=== PATIENT | male | born 1965 | race Caucasian/White ===

== ENCOUNTER 2017-05-22 10:11 | Emergency (ER) | payer MEDICARE ==
[~2017-05-22] VITALS: Ht 190.5 cm; Wt 140.2 kg
[~2017-05-22 10:11] MED LIST: ALBU90OI6 INH; ALBU90OI61 INH; ASPI81CH PO; ASPI81EC PO; AUVI-Q0.3 MG/0.3 IV; AZIT250 PO; BUDE6HFA INH; CARV25 PO; Coreg25 MG PO; EPIN.3I IM; FLUSAL1005; FURO20 PO; GABA300 PO; HYDACE10B PO; HYDACE5325 PO; Hydrocodone-Ap1 EA23 PO; IBUP800 PO; LIRA0.6P SUBQ; LOSA50 PO; METF500 PO; Mucinex600 MG PO; NAPR500 PO; Naprosyn500 MG PO; Norco 10-325 T1 EACH PO; Norco 5-325 Ta1 EACH PO; Omeprazole20 M1 PO; Oxycodone-Apap1 EAC3 PO; PRED20 PO; Prednisone20 MG PO; SIMV40 PO; SPIRIVA RESPIMAT4 GM INH; Sulfamethoxazo1 EAC4 PO; TIOT18 IH; TIOT18 INH; TRADJENTA5 MG PO; TRAM50 PO; Veetids 500500 MG PO; Ventolin Soln3 ML INH; Zithromax250 MG PO
[2017-05-22 10:46] LABS: BASOPHILS ABSOLUTE AUTO 0.01 K/mm3 (0.00-0.23); BASOPHILS PERCENT AUTO 0 % (0-2); EOSINOPHILS ABSOLUTE AUTO 0.16 K/mm3 (0.00-0.68); EOSINOPHILS PERCENT AUTO 2 % (0-6); IMMATURE GRAN ABSOLUTE AUTO 0.03 K/mm3 (0.00-0.10); IMMATURE GRAN PERCENT AUTO 0 % (0-1); LYMPHOCYTES ABSOLUTE AUTO 1.99 K/mm3 (0.84-5.20); LYMPHOCYTES PERCENT AUTO 26 % (21-46); MONOCYTES ABSOLUTE AUTO 0.72 K/mm3 (0.16-1.47); MONOCYTES PERCENT AUTO 9 % (4-13); Mean Corpuscular HGB 31.6 pg (26.0-34.0); Mean Corpuscular HGB Conc 34.8 g/dL (31.5-36.5); Mean Corpuscular Volume 91 fL (80-100); Mean Platelet Volume 11.6 fL (9.1-12.4); NEUTROPHILS ABSOLUTE AUTO 4.82 K/mm3 (1.96-9.15); NEUTROPHILS PERCENT AUTO 62 % (41-73); Platelet Count 189 K/mm3 (150-400); RDW Coefficient Variation 12.8 % (11.7-14.2); RDW Standard Deviation 42.4 fL (35.1-46.3); Red Blood Cell Count 5.06 M/mm3 (4.30-5.90); White Blood Cell Count 7.73 K/mm3 (4.00-11.30)
[2017-05-22 10:56] LABS: Troponin I <0.015 ng/mL (0.000-0.040)
[2017-05-22 11:00] LABS: Alanine Aminotransfer (ALT/SGP 27 U/L (12-78); Albumin, Blood 3.8 g/dL (3.4-5.0); Albumin/Globulin Ratio 1.1 (0.8-1.8); Alk Phos 72 U/L (50-136); Anion Gap 8 mmol/L (6-16); Aspartate Aminotrans (AST/SGOT 23 U/L (12-37); Bilirubin, Total 0.6 mg/dL (0.1-1.0); Blood Urea Nitrogen 15 mg/dL (8-24); Bun/Creatinine Ratio 21.3 (12.0-20.0); CO2, Blood 26 mmol/L (21-32); Calcium, Blood 8.8 mg/dL (8.5-10.1); Chloride, Blood 103 mmol/L (98-108); Globulin, Blood 3.5 g/dL (2.2-4.0); Glomerular Filtration Rate >60 (60-); Glucose, Blood 104 mg/dL (70-99); Potassium, Blood 3.4 mmol/L (3.5-5.5); Sodium, Blood 137 mmol/L (136-145); Total Protein, Blood 7.3 g/dL (6.4-8.2)
[2017-05-22] MEDS ORDERED: TAMS.4ER PO (11:08)
[2017-05-22] MEDS ORDERED: ALBU90OI INH (11:10)
[2017-05-22 11:34] LABS: Magnesium, Blood 1.7 mg/dL (1.6-2.4)
[2017-06-16] MEDS ORDERED: TIOT18 INH (14:51)
[2017-06-16] MEDS ORDERED: ALBUTEROL SULFATE NEB (14:55)
[2017-06-16] MEDS ORDERED: Questran4 GM PO (14:56)
[2017-06-16] MEDS ORDERED: Klor-Con M1010 MEQ PO (14:57)
[2017-11-07] MEDS ORDERED: Bactrim Ds Tab1 EACH PO (13:48)
== END 2017-05-22 16:15 | disposition home or self-care (01) ==
LOC: ER 10:11
PROVIDERS: Emergency Medicine
DX: R07.89 Other chest pain (principal); R42 Dizziness and giddiness; J44.9 Chronic obstructive pulmonary disease, unspecified; I10 Essential (primary) hypertension; E78.00 Pure hypercholesterolemia, unspecified; E11.9 Type 2 diabetes mellitus without complications; Z91.018 Allergy to other foods; Z88.1 Allergy status to other antibiotic agents; Z88.8 Allergy status to other drugs, medicaments and biological substances; Z79.899 Other long term (current) drug therapy; Z79.82 Long term (current) use of aspirin; Z79.84 Long term (current) use of oral hypoglycemic drugs; Z90.49 Acquired absence of other specified parts of digestive tract; Z87.891 Personal history of nicotine dependence
CPT/HCPCS: 36415; 71046; 80053; 83690; 83735; 83880; 84484; 85025; 93005; 93010; 99283

== ENCOUNTER 2017-06-17 11:02 | Observation (INO) | payer MEDICARE ==
[~2017-06-17] VITALS: Ht 190.5 cm; Wt 129.0 kg
[~2017-06-17 11:02] MED LIST changes: +ALBU90OI INH; +ALBUTEROL SULFATE NEB; +Klor-Con M1010 MEQ PO; +Questran4 GM PO; +TAMS.4ER PO
[2017-06-17 11:53] LABS: BASOPHILS ABSOLUTE AUTO 0.03 K/mm3 (0.00-0.23); BASOPHILS PERCENT AUTO 0 % (0-2); EOSINOPHILS ABSOLUTE AUTO 0.11 K/mm3 (0.00-0.68); EOSINOPHILS PERCENT AUTO 1 % (0-6); Hematocrit 47.3 % (37.0-53.0); Hemoglobin 15.9 g/dL (13.5-17.5); IMMATURE GRAN ABSOLUTE AUTO 0.03 K/mm3 (0.00-0.10); IMMATURE GRAN PERCENT AUTO 0 % (0-1); LYMPHOCYTES ABSOLUTE AUTO 1.84 K/mm3 (0.84-5.20); LYMPHOCYTES PERCENT AUTO 18 % (21-46); MONOCYTES ABSOLUTE AUTO 0.66 K/mm3 (0.16-1.47); MONOCYTES PERCENT AUTO 7 % (4-13); Mean Corpuscular HGB 30.3 pg (26.0-34.0); Mean Corpuscular HGB Conc 33.6 g/dL (31.5-36.5); Mean Corpuscular Volume 90 fL (80-100); Mean Platelet Volume 11.6 fL (9.1-12.4); NEUTROPHILS ABSOLUTE AUTO 7.34 K/mm3 (1.96-9.15); NEUTROPHILS PERCENT AUTO 73 % (41-73); Platelet Count 217 K/mm3 (150-400); RDW Coefficient Variation 12.5 % (11.7-14.2); RDW Standard Deviation 41.6 fL (35.1-46.3); Red Blood Cell Count 5.25 M/mm3 (4.30-5.90); White Blood Cell Count 10.01 K/mm3 (4.00-11.30)
[2017-06-17 12:08] LABS: Alanine Aminotransfer (ALT/SGP 31 U/L (12-78); Albumin, Blood 3.9 g/dL (3.4-5.0); Alk Phos 77 U/L (50-136); Anion Gap 10 mmol/L (6-16); Aspartate Aminotrans (AST/SGOT 20 U/L (12-37); Bilirubin, Total 0.7 mg/dL (0.1-1.0); Blood Urea Nitrogen 18 mg/dL (8-24); Bun/Creatinine Ratio 21.1 (12.0-20.0); CO2, Blood 26 mmol/L (21-32); Chloride, Blood 101 mmol/L (98-108); Creatinine, Blood 0.85 mg/dL (0.60-1.20); Globulin, Blood 3.9 g/dL (2.2-4.0); Glomerular Filtration Rate >60 (60-); Glucose, Blood 220 mg/dL (70-99); Potassium, Blood 3.2 mmol/L (3.5-5.5); Sodium, Blood 137 mmol/L (136-145); Total Protein, Blood 7.8 g/dL (6.4-8.2); Troponin I <0.015 ng/mL (0.000-0.040)
[2017-06-17 20:18] LABS: CPK Creatine Kinase 136 U/L (39-308); Creatine Kinase MB 1.3 ng/mL (0.0-3.6); Troponin I <0.015 ng/mL (0.000-0.040)
[2017-06-18 04:34] LABS: BASOPHILS ABSOLUTE AUTO 0.02 K/mm3 (0.00-0.23); BASOPHILS PERCENT AUTO 0 % (0-2); EOSINOPHILS ABSOLUTE AUTO 0.14 K/mm3 (0.00-0.68); EOSINOPHILS PERCENT AUTO 2 % (0-6); Hematocrit 41.5 % (37.0-53.0); Hemoglobin 14.2 g/dL (13.5-17.5); IMMATURE GRAN ABSOLUTE AUTO 0.03 K/mm3 (0.00-0.10); IMMATURE GRAN PERCENT AUTO 0 % (0-1); LYMPHOCYTES ABSOLUTE AUTO 1.64 K/mm3 (0.84-5.20); LYMPHOCYTES PERCENT AUTO 18 % (21-46); MONOCYTES ABSOLUTE AUTO 0.89 K/mm3 (0.16-1.47); MONOCYTES PERCENT AUTO 10 % (4-13); Mean Corpuscular HGB 31.6 pg (26.0-34.0); Mean Corpuscular HGB Conc 34.2 g/dL (31.5-36.5); Mean Corpuscular Volume 92 fL (80-100); Mean Platelet Volume 11.3 fL (9.1-12.4); NEUTROPHILS ABSOLUTE AUTO 6.51 K/mm3 (1.96-9.15); NEUTROPHILS PERCENT AUTO 71 % (41-73); Platelet Count 182 K/mm3 (150-400); RDW Coefficient Variation 12.7 % (11.7-14.2); RDW Standard Deviation 43.1 fL (35.1-46.3); White Blood Cell Count 9.23 K/mm3 (4.00-11.30)
[2017-06-18 04:56] LABS: Alanine Aminotransfer (ALT/SGP 25 U/L (12-78); Albumin, Blood 3.3 g/dL (3.4-5.0); Albumin/Globulin Ratio 0.9 (0.8-1.8); Alk Phos 67 U/L (50-136); Anion Gap 6 mmol/L (6-16); Aspartate Aminotrans (AST/SGOT 14 U/L (12-37); Bilirubin, Total 0.6 mg/dL (0.1-1.0); Blood Urea Nitrogen 19 mg/dL (8-24); Bun/Creatinine Ratio 24.1 (12.0-20.0); CO2, Blood 28 mmol/L (21-32); CPK Creatine Kinase 111 U/L (39-308); Calcium, Blood 8.5 mg/dL (8.5-10.1); Chloride, Blood 104 mmol/L (98-108); Creatine Kinase MB 1.1 ng/mL (0.0-3.6); Creatinine, Blood 0.79 mg/dL (0.60-1.20); Globulin, Blood 3.5 g/dL (2.2-4.0); Glomerular Filtration Rate >60 (60-); Glucose, Blood 145 mg/dL (70-99); Potassium, Blood 3.8 mmol/L (3.5-5.5); Sodium, Blood 138 mmol/L (136-145); Total Protein, Blood 6.8 g/dL (6.4-8.2); Troponin I <0.015 ng/mL (0.000-0.040)
[2017-06-18 12:39] LABS: CPK Creatine Kinase 107 U/L (39-308); Creatine Kinase MB 1.1 ng/mL (0.0-3.6); Troponin I <0.015 ng/mL (0.000-0.040)
[2017-11-07] MEDS ORDERED: Bactrim Ds Tab1 EACH PO (13:48)
== END 2017-06-19 14:30 | disposition home or self-care (01) ==
LOC: ER 11:02 → MEDS 11:03 → ICUW 11:03 → MEDS 11:03 → ICUW 06-19 07:36
PROVIDERS: Emergency Medicine; Internal Medicine
DX: R07.89 Other chest pain (principal); E11.9 Type 2 diabetes mellitus without complications; I10 Essential (primary) hypertension; R06.02 Shortness of breath; E78.5 Hyperlipidemia, unspecified; G89.29 Other chronic pain; M54.6 Pain in thoracic spine; G47.33 Obstructive sleep apnea (adult) (pediatric); J44.9 Chronic obstructive pulmonary disease, unspecified; E66.01 Morbid (severe) obesity due to excess calories; I42.9 Cardiomyopathy, unspecified; M19.90 Unspecified osteoarthritis, unspecified site; N40.0 Benign prostatic hyperplasia without lower urinary tract symptoms; F17.210 Nicotine dependence, cigarettes, uncomplicated; R94.39 Abnormal result of other cardiovascular function study; Z89.512 Acquired absence of left leg below knee; Z79.899 Other long term (current) drug therapy; Z90.49 Acquired absence of other specified parts of digestive tract; Z98.49 Cataract extraction status, unspecified eye; Z79.82 Long term (current) use of aspirin; Z79.84 Long term (current) use of oral hypoglycemic drugs; Z88.1 Allergy status to other antibiotic agents; Z88.8 Allergy status to other drugs, medicaments and biological substances
CPT/HCPCS: 36415; 71046; 80053; 82550; 82553; 82947; 83880; 84484; 85025; 93005; 93010; 93458; 94640; 94660; 94760; 94762; 96361; 96372; 96374; 96375; 96376; 99152; 99153; 99285; A9270; C1769; C1894; G0378; J1644; J1650; J2250; J2270; J2405; J3010; J7030; Q9967

== ENCOUNTER 2017-08-07 19:24 | Inpatient (IN) | payer MEDICARE ==
[~2017-08-07] VITALS: Ht 190.5 cm; Wt 140.0 kg
[2017-08-07 19:43] LABS: BASOPHILS ABSOLUTE AUTO 0.02 K/mm3 (0.00-0.23); BASOPHILS PERCENT AUTO 0 % (0-2); EOSINOPHILS ABSOLUTE AUTO 0.13 K/mm3 (0.00-0.68); EOSINOPHILS PERCENT AUTO 1 % (0-6); Hematocrit 46.7 % (37.0-53.0); Hemoglobin 15.5 g/dL (13.5-17.5); IMMATURE GRAN ABSOLUTE AUTO 0.04 K/mm3 (0.00-0.10); IMMATURE GRAN PERCENT AUTO 0 % (0-1); LYMPHOCYTES ABSOLUTE AUTO 1.29 K/mm3 (0.84-5.20); LYMPHOCYTES PERCENT AUTO 14 % (21-46); MONOCYTES ABSOLUTE AUTO 0.72 K/mm3 (0.16-1.47); MONOCYTES PERCENT AUTO 8 % (4-13); Mean Corpuscular HGB 30.9 pg (26.0-34.0); Mean Corpuscular HGB Conc 33.2 g/dL (31.5-36.5); Mean Corpuscular Volume 93 fL (80-100); Mean Platelet Volume 11.1 fL (9.1-12.4); NEUTROPHILS ABSOLUTE AUTO 6.92 K/mm3 (1.96-9.15); NEUTROPHILS PERCENT AUTO 76 % (41-73); Platelet Count 210 K/mm3 (150-400); RDW Coefficient Variation 13.3 % (11.7-14.2); RDW Standard Deviation 45.3 fL (35.1-46.3); Red Blood Cell Count 5.02 M/mm3 (4.30-5.90); White Blood Cell Count 9.12 K/mm3 (4.00-11.30)
[2017-08-07 19:59] LABS: Alanine Aminotransfer (ALT/SGP 28 U/L (12-78); Albumin, Blood 3.8 g/dL (3.4-5.0); Albumin/Globulin Ratio 1.1 (0.8-1.8); Alk Phos 64 U/L (50-136); Anion Gap 6 mmol/L (6-16); Aspartate Aminotrans (AST/SGOT 21 U/L (12-37); Bilirubin, Total 0.5 mg/dL (0.1-1.0); Blood Urea Nitrogen 22 mg/dL (8-24); Bun/Creatinine Ratio 29.7 (12.0-20.0); CO2, Blood 28 mmol/L (21-32); Calcium, Blood 8.9 mg/dL (8.5-10.1); Chloride, Blood 108 mmol/L (98-108); Creatinine, Blood 0.74 mg/dL (0.60-1.20); Globulin, Blood 3.4 g/dL (2.2-4.0); Glomerular Filtration Rate >60 (60-); Glucose, Blood 112 mg/dL (70-99); Potassium, Blood 3.8 mmol/L (3.5-5.5); Sodium, Blood 142 mmol/L (136-145); Total Protein, Blood 7.2 g/dL (6.4-8.2); Troponin I <0.015 ng/mL (0.000-0.040)
[2017-08-07 21:28] LABS: CPK Creatine Kinase 153 U/L (39-308)
[2017-08-08 03:47] LABS: Source, Urine Clean Catch
[2017-08-08 03:51] LABS: Bilirubin, Urine Neg (Neg); Blood, Urine Neg (Neg); Glucose Qualitative, Urine 3+ (Neg); Ketones, Urine 1+ (Neg); Leukocyte Esterase, Urine Neg (Neg); Nitrite, Urine Neg (Neg); Protein, Urine 1+ (Neg); Specific Gravity, Urine 1.025 (1.003-1.022); Urobilinogen, Urine NORM (Normal)
[2017-08-08 03:53] LABS: Appearance, Urine Clear (Clear); Color, Urine Yellow (P-Yellow)
[2017-08-08 04:07] LABS: BASOPHILS ABSOLUTE AUTO 0.01 K/mm3 (0.00-0.23); BASOPHILS PERCENT AUTO 0 % (0-2); EOSINOPHILS ABSOLUTE AUTO 0.01 K/mm3 (0.00-0.68); EOSINOPHILS PERCENT AUTO 0 % (0-6); Hematocrit 45.4 % (37.0-53.0); Hemoglobin 14.7 g/dL (13.5-17.5); IMMATURE GRAN ABSOLUTE AUTO 0.02 K/mm3 (0.00-0.10); IMMATURE GRAN PERCENT AUTO 0 % (0-1); LYMPHOCYTES ABSOLUTE AUTO 0.47 K/mm3 (0.84-5.20); LYMPHOCYTES PERCENT AUTO 5 % (21-46); MONOCYTES ABSOLUTE AUTO 0.06 K/mm3 (0.16-1.47); MONOCYTES PERCENT AUTO 1 % (4-13); Mean Corpuscular HGB 30.3 pg (26.0-34.0); Mean Corpuscular HGB Conc 32.4 g/dL (31.5-36.5); Mean Corpuscular Volume 94 fL (80-100); Mean Platelet Volume 11.6 fL (9.1-12.4); NEUTROPHILS ABSOLUTE AUTO 8.16 K/mm3 (1.96-9.15); NEUTROPHILS PERCENT AUTO 94 % (41-73); Platelet Count 204 K/mm3 (150-400); RDW Coefficient Variation 13.2 % (11.7-14.2); RDW Standard Deviation 46.1 fL (35.1-46.3); Red Blood Cell Count 4.85 M/mm3 (4.30-5.90); White Blood Cell Count 8.73 K/mm3 (4.00-11.30)
[2017-08-08 04:31] LABS: Alanine Aminotransfer (ALT/SGP 27 U/L (12-78); Albumin, Blood 3.5 g/dL (3.4-5.0); Alk Phos 65 U/L (50-136); Anion Gap 10 mmol/L (6-16); Aspartate Aminotrans (AST/SGOT 12 U/L (12-37); Bilirubin, Total 0.4 mg/dL (0.1-1.0); Blood Urea Nitrogen 24 mg/dL (8-24); Bun/Creatinine Ratio 36.6 (12.0-20.0); CO2, Blood 25 mmol/L (21-32); CPK Creatine Kinase 111 U/L (39-308); Calcium, Blood 8.6 mg/dL (8.5-10.1); Chloride, Blood 106 mmol/L (98-108); Creatinine, Blood 0.66 mg/dL (0.60-1.20); Globulin, Blood 3.6 g/dL (2.2-4.0); Glomerular Filtration Rate >60 (60-); Glucose, Blood 193 mg/dL (70-99); Potassium, Blood 4.3 mmol/L (3.5-5.5); Sodium, Blood 141 mmol/L (136-145); Total Protein, Blood 7.1 g/dL (6.4-8.2); Troponin I <0.015 ng/mL (0.000-0.040)
[2017-08-08 12:09] LABS: CPK Creatine Kinase 94 U/L (39-308); Troponin I <0.015 ng/mL (0.000-0.040)
[2017-08-09] MEDS ORDERED: PRED10 PO (11:43)
[2017-08-09] MEDS ORDERED: ONDA4ODT MM (11:45)
[2017-08-09] MEDS ORDERED: LEVO750 PO (11:45)
== END 2017-08-09 14:45 | disposition home or self-care (01) | DRG 177 ==
LOC: ER 19:24 → PCU 20:53
PROVIDERS: Emergency Medicine; Internal Medicine
DX: J69.0 Pneumonitis due to inhalation of food and vomit (principal); J96.01 Acute respiratory failure with hypoxia; E66.01 Morbid (severe) obesity due to excess calories; E11.65 Type 2 diabetes mellitus with hyperglycemia; I42.8 Other cardiomyopathies; J44.1 Chronic obstructive pulmonary disease with (acute) exacerbation; J98.01 Acute bronchospasm; I25.10 Atherosclerotic heart disease of native coronary artery without angina pectoris; R11.2 Nausea with vomiting, unspecified; I10 Essential (primary) hypertension; E78.5 Hyperlipidemia, unspecified; M19.90 Unspecified osteoarthritis, unspecified site; G47.33 Obstructive sleep apnea (adult) (pediatric); K52.9 Noninfective gastroenteritis and colitis, unspecified; T38.0X5A Adverse effect of glucocorticoids and synthetic analogues, initial encounter; Z89.512 Acquired absence of left leg below knee; Z87.891 Personal history of nicotine dependence; Z68.38 Body mass index [BMI] 38.0-38.9, adult; Z79.84 Long term (current) use of oral hypoglycemic drugs; Z79.1 Long term (current) use of non-steroidal anti-inflammatories (NSAID); Z79.82 Long term (current) use of aspirin; Z79.51 Long term (current) use of inhaled steroids; Z79.899 Other long term (current) drug therapy; Z88.6 Allergy status to analgesic agent; Z88.1 Allergy status to other antibiotic agents; Z88.8 Allergy status to other drugs, medicaments and biological substances
CPT/HCPCS: 36415; 71045; 80053; 82550; 82947; 83036; 83880; 84484; 85025; 93005; 93010; 94640; 94644; 94660; 94762; 96361; 96365; 96366; 96375; 99285; J1650; J1956; J2930; J3475; J7030

== ENCOUNTER 2017-11-09 10:30 | Emergency (ER) | payer MEDICARE ==
[~2017-11-09] VITALS: Ht 190.5 cm; Wt 139.7 kg
[~2017-11-09 10:30] MED LIST changes: +Bactrim Ds Tab1 EACH PO; +LEVO750 PO; +ONDA4ODT MM; +PRED10 PO
== END 2017-11-09 10:58 | disposition home or self-care (01) ==
LOC: ER 10:30
DX: Z48.817 Encounter for surgical aftercare following surgery on the skin and subcutaneous tissue (principal); Z88.8 Allergy status to other drugs, medicaments and biological substances; Z88.1 Allergy status to other antibiotic agents; Z79.899 Other long term (current) drug therapy; Z79.82 Long term (current) use of aspirin; J44.9 Chronic obstructive pulmonary disease, unspecified; I10 Essential (primary) hypertension; E11.9 Type 2 diabetes mellitus without complications; E78.00 Pure hypercholesterolemia, unspecified; Z87.891 Personal history of nicotine dependence
CPT/HCPCS: 99282

== ENCOUNTER 2018-05-05 21:48 | Inpatient (IN) | payer MEDICARE ==
[~2018-05-05] VITALS: Ht 190.5 cm; Wt 123.9 kg
[~2018-05-05 21:48] MED LIST changes: +Glucophage1000 MG PO; -ONDA4ODT MM; +ONDA4ODT PO
[2018-05-05 22:45] LABS: BASOPHILS ABSOLUTE AUTO 0.01 K/mm3 (0.00-0.23); BASOPHILS PERCENT AUTO 0 % (0-2); EOSINOPHILS ABSOLUTE AUTO 0.03 K/mm3 (0.00-0.68); EOSINOPHILS PERCENT AUTO 1 % (0-6); Hematocrit 40.6 % (37.0-53.0); Hemoglobin 13.3 g/dL (13.5-17.5); IMMATURE GRAN ABSOLUTE AUTO 0.02 K/mm3 (0.00-0.10); IMMATURE GRAN PERCENT AUTO 0 % (0-1); LYMPHOCYTES ABSOLUTE AUTO 0.68 K/mm3 (0.84-5.20); LYMPHOCYTES PERCENT AUTO 10 % (21-46); MONOCYTES ABSOLUTE AUTO 0.51 K/mm3 (0.16-1.47); MONOCYTES PERCENT AUTO 8 % (4-13); Mean Corpuscular HGB 31.4 pg (26.0-34.0); Mean Corpuscular HGB Conc 32.8 g/dL (31.5-36.5); Mean Corpuscular Volume 96 fL (80-100); NEUTROPHILS PERCENT AUTO 81 % (41-73); Platelet Count 150 K/mm3 (150-400); RDW Coefficient Variation 13.5 % (11.7-14.2); RDW Standard Deviation 48.3 fL (35.1-46.3); Red Blood Cell Count 4.24 M/mm3 (4.30-5.90); White Blood Cell Count 6.65 K/mm3 (4.00-11.30)
[2018-05-05 23:02] LABS: Alanine Aminotransfer (ALT/SGP 24 U/L (12-78); Albumin/Globulin Ratio 0.9 (0.8-1.8); Alk Phos 59 U/L (50-136); Anion Gap 8 mmol/L (6-16); Aspartate Aminotrans (AST/SGOT 20 U/L (12-37); Bilirubin, Total 0.2 mg/dL (0.1-1.0); Blood Urea Nitrogen 14 mg/dL (8-24); Bun/Creatinine Ratio 19.1 (12.0-20.0); CO2, Blood 26 mmol/L (21-32); Chloride, Blood 107 mmol/L (98-108); Creatinine, Blood 0.73 mg/dL (0.60-1.20); Globulin, Blood 3.4 g/dL (2.2-4.0); Glomerular Filtration Rate >60 (60-); Glucose, Blood 111 mg/dL (70-99); Potassium, Blood 3.8 mmol/L (3.5-5.5); Sodium, Blood 141 mmol/L (136-145); Total Protein, Blood 6.4 g/dL (6.4-8.2)
[2018-05-06 01:13] LABS: Influenza A Positive (NEGATIVE); Influenza B Negative (NEGATIVE)
[2018-05-06 09:51] LABS: Adenovirus Not Detected (NOT DETECT); Bordetella pertussis Not Detected (NOT DETECT); Chlamydophila pneumoniae Not Detected (NOT DETECT); Coronavirus 229E Not Detected (NOT DETECT); Coronavirus HKU1 Not Detected (NOT DETECT); Coronavirus NL63 Not Detected (NOT DETECT); Coronavirus OC43 Not Detected (NOT DETECT); Human Metapneumovirus Not Detected (NOT DETECT); Human Rhinovirus/Enterovirus Not Detected (NOT DETECT); Influenza A/H3 Not Detected (NOT DETECT); Influenza B Not Detected (NOT DETECT); Mycoplasma pneumoniae Not Detected (NOT DETECT); Parainfluenza Virus 1 Not Detected (NOT DETECT); Parainfluenza Virus 2 Not Detected (NOT DETECT); Parainfluenza Virus 3 Not Detected (NOT DETECT); Parainfluenza Virus 4 Not Detected (NOT DETECT); Respiratory Syncytial Virus Not Detected (NOT DETECT)
[2018-05-06 11:20] LABS: Influenza A Detected (NOT DETECT)
[2018-05-06 11:25] LABS: Influenza A/2009-H1 Detected (NOT DETECT); Influenza A/H1 Not Detected (NOT DETECT)
[2018-05-06] MEDS ORDERED: BUDE10.22 INH (12:13)
--- NOTE | 2018-05-06 13:10 | NUR ---
Call to Dr. Brink regarding pt's improving blood pressure, actually now starting to be high, and the pt still being on continuous IVF at 125cc/ hour. The pt has had a very good oral intake today. He has a history of HTN with usual home medications being Coreg and Lasix, but is currently not on those medications since admission yesteray. Dr. Brink to make changes to medication orders and IVF will be discontinued after the current bag is complete.
--- NOTE | 2018-05-06 13:45 | NUR ---
The pt was ambulatory in the hallway. Respiratory status was reassessed after the walk, and his wheezing auscultated this morning throughout is now gone, with only fine inspiratory crackles remaining in the bases, more on the right than the left. SPO2 93% on room air now, and the pt states that he feels that his breathing is much better. He is able to walk to the bathroom, around the room without any difficulty, he states.
[2018-05-06 13:46] LABS: Anion Gap 9 mmol/L (6-16); Blood Urea Nitrogen 12 mg/dL (8-24); Bun/Creatinine Ratio 18.6 (12.0-20.0); CO2, Blood 23 mmol/L (21-32); Calcium, Blood 8.7 mg/dL (8.5-10.1); Chloride, Blood 108 mmol/L (98-108); Creatinine, Blood 0.65 mg/dL (0.60-1.20); Glomerular Filtration Rate >60 (60-); Glucose, Blood 203 mg/dL (70-99); Sodium, Blood 140 mmol/L (136-145)
[2018-05-06 14:11] LABS: BASOPHILS ABSOLUTE AUTO 0.01 K/mm3 (0.00-0.23); BASOPHILS PERCENT AUTO 0 % (0-2); EOSINOPHILS PERCENT AUTO 0 % (0-6); Hemoglobin 14.1 g/dL (13.5-17.5); IMMATURE GRAN PERCENT AUTO 1 % (0-1); LYMPHOCYTES ABSOLUTE AUTO 0.65 K/mm3 (0.84-5.20); LYMPHOCYTES PERCENT AUTO 5 % (21-46); MONOCYTES ABSOLUTE AUTO 0.33 K/mm3 (0.16-1.47); MONOCYTES PERCENT AUTO 3 % (4-13); Mean Corpuscular HGB 30.9 pg (26.0-34.0); Mean Corpuscular HGB Conc 32.8 g/dL (31.5-36.5); Mean Corpuscular Volume 94 fL (80-100); Mean Platelet Volume 11.4 fL (9.1-12.4); NEUTROPHILS ABSOLUTE AUTO 11.33 K/mm3 (1.96-9.15); NEUTROPHILS PERCENT AUTO 91 % (41-73); Platelet Count 155 K/mm3 (150-400); RDW Coefficient Variation 13.3 % (11.7-14.2); RDW Standard Deviation 45.9 fL (35.1-46.3); Red Blood Cell Count 4.56 M/mm3 (4.30-5.90); White Blood Cell Count 12.42 K/mm3 (4.00-11.30)
--- NOTE | 2018-05-06 18:37 | NUR ---
The pt reports improvement in his breathing and less wheezing since this morning. He has been ambulatory in the hallways a few times, without difficulty, vital signs stable, and weaned from oxygen this afternoon. Lung sounds are without wheezing this afternoon, but still ausculated fine inspiratory crackles in the bases and the pt has a frequent moist cough. Appetite good; his family brought him cake this evening to celebrate his birthday today.
--- NOTE | 2018-05-06 21:38 | NUR ---
ASSUMED CARE OF PATIENT AT APPROXIMATELY 1905 FROM JAMES Schulte RN. PATIENT ALERT AND ORIENTED X4; REPORTED INDEPENDENT IN ROOM AND HALLS ALL DAY TODAY. PATIENT STEADY ON FEET. PATIENT DENIES PAIN, NUMBESS, DIZZINESS AND NAUSEA. PATIENT REPORTS TINGLING IN LEFT LEG OCCASIONALLY. LEFT BKA; USES PROSTHETIC LEG. PATIENT REPORTS BED UNCOMFORTABLE; REPORTS SLEEPING IN RECLINER AT HOME; RECLINER SET UP BY BED. PATIENT REPORTS HE FEELS ALOT BETTER COMPARED TO LAST NIGHT. PIV S/L. REPORTED THAT PATIENT IS MEDICAL NO TELE STATUS. PATIENT CURRENTLY EATING BIRTHDAY CAKE IN THE RECLINER; CALL LIGHT IN REACH; WILL CONTINUE TO MONITOR AND ASSESS UNTIL END OF SHIFT.
--- NOTE | 2018-05-07 05:59 | NUR ---
PATIENT SLEPT WELL LAST NIGHT IN RECLINER; SLEPT ABOUT NINE HOURS. PATIENT HAD A SHOWER THIS MORNING; INDEPENDENT IN ROOM. PATIENT IS PCU NO TELE STATUS; REPORTS HE IS READY TO GO HOME. OXYGEN SATURATION ABOVE 90% ON ROOM AIR; DENIES COMPLAINTS. WILL CONTINUE TO MONITOR AND ASSESS UNTIL END OF SHIFT.
[2018-05-07] MEDS ORDERED: PRED10 PO (10:56)
[2018-05-07] MEDS ORDERED: OSEL75CA PO (10:56)
--- NOTE | 2018-05-07 11:43 | NUR ---
The pt stated that he was able to walk outside for discharge. The DIRECTOR OF AUTOMATION accompanied him to his private vehicle. 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 The pt has been ambulatory in the room and in the hallway since yesterday,and has received no medications which would impair his driving ability. He states that he drove himself to the hospital initially for admission.
== END 2018-05-07 11:57 | disposition home or self-care (01) | DRG 871 ==
LOC: ER 21:48 → PCU 05-06 01:10
PROVIDERS: Emergency Medicine; ADMIT Family Medicine
DX: A41.89 Other specified sepsis (principal); J96.01 Acute respiratory failure with hypoxia; R65.20 Severe sepsis without septic shock; E11.9 Type 2 diabetes mellitus without complications; E66.01 Morbid (severe) obesity due to excess calories; I95.9 Hypotension, unspecified; I10 Essential (primary) hypertension; E78.5 Hyperlipidemia, unspecified; G47.30 Sleep apnea, unspecified; K21.9 Gastro-esophageal reflux disease without esophagitis; E66.9 Obesity, unspecified; Z68.36 Body mass index [BMI] 36.0-36.9, adult; Z88.8 Allergy status to other drugs, medicaments and biological substances; Z91.018 Allergy to other foods; Z89.512 Acquired absence of left leg below knee; Z79.84 Long term (current) use of oral hypoglycemic drugs; Z79.82 Long term (current) use of aspirin; Z79.899 Other long term (current) drug therapy; Z87.891 Personal history of nicotine dependence
CPT/HCPCS: 36415; 71046; 80048; 80053; 82947; 83605; 84145; 85025; 87040; 87070; 87205; 87486; 87581; 87633; 87798; 87804; 94640; 94760; 96365; 96367; 99285-25; J1100; J1650; J1815; J1956; J2543; J2930; J7030; J7120

== ENCOUNTER 2018-05-16 10:04 | Inpatient (IN) | payer MEDICARE ==
[~2018-05-16] VITALS: Ht 190.5 cm; Wt 134.8 kg
[~2018-05-16 10:04] MED LIST changes: +BUDE10.22 INH; +OSEL75CA PO
[2018-05-16 11:26] LABS: BASOPHILS ABSOLUTE AUTO 0.01 K/mm3 (0.00-0.23); BASOPHILS PERCENT AUTO 0 % (0-2); EOSINOPHILS ABSOLUTE AUTO 0.01 K/mm3 (0.00-0.68); EOSINOPHILS PERCENT AUTO 0 % (0-6); Hematocrit 38.8 % (37.0-53.0); Hemoglobin 12.9 g/dL (13.5-17.5); IMMATURE GRAN ABSOLUTE AUTO 0.08 K/mm3 (0.00-0.10); IMMATURE GRAN PERCENT AUTO 1 % (0-1); LYMPHOCYTES ABSOLUTE AUTO 1.49 K/mm3 (0.84-5.20); LYMPHOCYTES PERCENT AUTO 11 % (21-46); MONOCYTES ABSOLUTE AUTO 0.99 K/mm3 (0.16-1.47); MONOCYTES PERCENT AUTO 8 % (4-13); Mean Corpuscular HGB 30.8 pg (26.0-34.0); Mean Corpuscular HGB Conc 33.2 g/dL (31.5-36.5); Mean Corpuscular Volume 93 fL (80-100); Mean Platelet Volume 10.7 fL (9.1-12.4); NEUTROPHILS ABSOLUTE AUTO 10.59 K/mm3 (1.96-9.15); NEUTROPHILS PERCENT AUTO 80 % (41-73); Platelet Count 217 K/mm3 (150-400); RDW Coefficient Variation 13.3 % (11.7-14.2); RDW Standard Deviation 45.5 fL (35.1-46.3); Red Blood Cell Count 4.19 M/mm3 (4.30-5.90); White Blood Cell Count 13.17 K/mm3 (4.00-11.30)
[2018-05-16 11:54] LABS: Troponin I <0.015 ng/mL (0.000-0.040)
[2018-05-16 11:56] LABS: Alanine Aminotransfer (ALT/SGP 19 U/L (12-78); Albumin, Blood 2.6 g/dL (3.4-5.0); Albumin/Globulin Ratio 0.7 (0.8-1.8); Alk Phos 64 U/L (50-136); Anion Gap 7 mmol/L (6-16); Aspartate Aminotrans (AST/SGOT 13 U/L (12-37); Bilirubin, Total 0.8 mg/dL (0.1-1.0); Blood Urea Nitrogen 13 mg/dL (8-24); Bun/Creatinine Ratio 20.5 (12.0-20.0); CO2, Blood 28 mmol/L (21-32); Calcium, Blood 8.5 mg/dL (8.5-10.1); Chloride, Blood 104 mmol/L (98-108); Creatinine, Blood 0.63 mg/dL (0.60-1.20); Globulin, Blood 3.9 g/dL (2.2-4.0); Glomerular Filtration Rate >60 (60-); Glucose, Blood 180 mg/dL (70-99); Potassium, Blood 3.3 mmol/L (3.5-5.5); Sodium, Blood 139 mmol/L (136-145); Total Protein, Blood 6.5 g/dL (6.4-8.2)
--- NOTE | 2018-05-16 16:19 | NUR ---
RECEIVED HANDOFF FROM ER ER NURSE ELSA GAVE REPORT ON NEW ADMIT, DIAGNOSED WITH PNEUMONIA, ADMITTED FOR SOB. PT DISCHARGED PREVIOUSLY ON Apr FOR INFLUENZA AND RESPIRATORY FAILURE. PT IS NOT ON TELEMETRY. PT IS INDEPENDENT IN THE ROOM AND CONTINENT. HE IS A&O X4. PT TRANSFERED TO MEDICAL FLOOR WITHOUT INCIDENT AND ORIENTED TO THE UNIT.
[2018-05-16 23:35] LABS: Adenovirus Not Detected (NOT DETECT); Bordetella pertussis Not Detected (NOT DETECT); Chlamydophila pneumoniae Not Detected (NOT DETECT); Coronavirus 229E Not Detected (NOT DETECT); Coronavirus HKU1 Not Detected (NOT DETECT); Coronavirus NL63 Not Detected (NOT DETECT); Coronavirus OC43 Not Detected (NOT DETECT); Human Metapneumovirus Not Detected (NOT DETECT); Human Rhinovirus/Enterovirus Not Detected (NOT DETECT); Influenza A/2009-H1 Not Detected (NOT DETECT); Influenza A/H1 Not Detected (NOT DETECT); Influenza A/H3 Not Detected (NOT DETECT); Influenza B Not Detected (NOT DETECT); Mycoplasma pneumoniae Not Detected (NOT DETECT); Parainfluenza Virus 1 Not Detected (NOT DETECT); Parainfluenza Virus 2 Not Detected (NOT DETECT); Parainfluenza Virus 3 Not Detected (NOT DETECT); Parainfluenza Virus 4 Not Detected (NOT DETECT); Respiratory Syncytial Virus Not Detected (NOT DETECT)
[2018-05-17 00:52] LABS: Influenza A Not Detected (NOT DETECT)
[2018-05-17 05:00] LABS: BASOPHILS ABSOLUTE AUTO 0.01 K/mm3 (0.00-0.23); BASOPHILS PERCENT AUTO 0 % (0-2); EOSINOPHILS PERCENT AUTO 0 % (0-6); Hematocrit 39.9 % (37.0-53.0); Hemoglobin 13.1 g/dL (13.5-17.5); IMMATURE GRAN ABSOLUTE AUTO 0.07 K/mm3 (0.00-0.10); IMMATURE GRAN PERCENT AUTO 1 % (0-1); LYMPHOCYTES ABSOLUTE AUTO 0.69 K/mm3 (0.84-5.20); LYMPHOCYTES PERCENT AUTO 5 % (21-46); MONOCYTES ABSOLUTE AUTO 0.38 K/mm3 (0.16-1.47); MONOCYTES PERCENT AUTO 3 % (4-13); Mean Corpuscular HGB 30.5 pg (26.0-34.0); Mean Corpuscular HGB Conc 32.8 g/dL (31.5-36.5); Mean Corpuscular Volume 93 fL (80-100); Mean Platelet Volume 10.6 fL (9.1-12.4); NEUTROPHILS PERCENT AUTO 91 % (41-73); Platelet Count 227 K/mm3 (150-400); RDW Coefficient Variation 13.2 % (11.7-14.2); RDW Standard Deviation 45.1 fL (35.1-46.3); Red Blood Cell Count 4.29 M/mm3 (4.30-5.90); White Blood Cell Count 12.85 K/mm3 (4.00-11.30)
--- NOTE | 2018-05-17 05:20 | NUR ---
SHIFT SUMMARY PT IS A&O, SITTING UPRIGHT IN BED SINCE START OF SHIFT; SLEEPING UPRIGHT. ADMITTED FOR PNM. LUNGS T/O COARSE WITH EXP WHEEZES THRU OUT. SPUTUM CX OBTAINED AND SENT THIS AM. PT PLACED ON CPAP AT HS AND REMAINS ON IT AT THIS TIME. AWAKE, WATCHING TV. REQUESTED PAIN MEDICATION FOR LBP. MEDICATED PER EMAR. HX OF HTN, COPD, DM AND L AKA. PT IN DROPLET ISO. PER REPORT, INDEPENDANT TO BTHRM. REQUESTED URINAL FOR HS WHEN GOING ON CPAP. MORBIDLY OBESE. CALL LT IN REACH.
[2018-05-17 05:25] LABS: Anion Gap 8 mmol/L (6-16); Blood Urea Nitrogen 12 mg/dL (8-24); Bun/Creatinine Ratio 19.3 (12.0-20.0); CO2, Blood 27 mmol/L (21-32); Calcium, Blood 8.9 mg/dL (8.5-10.1); Chloride, Blood 104 mmol/L (98-108); Creatinine, Blood 0.62 mg/dL (0.60-1.20); Glomerular Filtration Rate >60 (60-); Glucose, Blood 168 mg/dL (70-99); Sodium, Blood 139 mmol/L (136-145)
--- NOTE | 2018-05-17 19:19 | NUR ---
SHIFT SUMMARY- PT C/O BACK PAIN. MEDS GIVEN PER EMAR. PT DENIES SOB. RESP E/U AT REST ON 2L O2 NC. DYSPNEA UPON EXERTION. DENIES N/V. NO OTHER SIGNIFICANT CHANGES THIS SHIFT.
--- NOTE | 2018-05-17 23:44 | NUR ---
BEDSIDE REPORT GIVEN TO TANIKA GUILLAUME.
--- NOTE | 2018-05-18 05:38 | NUR ---
SHIFT SUMMARY PT A/O INDEPENDENT C PROSTHETIC L LEG. 2L O2 NC. SOME SOB C EXCERTION. C/O NOT BEING ABLE TO SLEEP T/O NIGHT. C/O BACK PAIN AND MEDICATED PER EMAR X1. OCCASIONAL COUGH. CALL LIGHT IN REACH
[2018-05-18 11:27] LABS: BASOPHILS ABSOLUTE AUTO 0.02 K/mm3 (0.00-0.23); BASOPHILS PERCENT AUTO 0 % (0-2); EOSINOPHILS PERCENT AUTO 0 % (0-6); Hematocrit 41.3 % (37.0-53.0); Hemoglobin 13.7 g/dL (13.5-17.5); IMMATURE GRAN ABSOLUTE AUTO 0.13 K/mm3 (0.00-0.10); IMMATURE GRAN PERCENT AUTO 1 % (0-1); LYMPHOCYTES ABSOLUTE AUTO 0.81 K/mm3 (0.84-5.20); LYMPHOCYTES PERCENT AUTO 4 % (21-46); MONOCYTES ABSOLUTE AUTO 0.69 K/mm3 (0.16-1.47); MONOCYTES PERCENT AUTO 4 % (4-13); Mean Corpuscular HGB 30.8 pg (26.0-34.0); Mean Corpuscular HGB Conc 33.2 g/dL (31.5-36.5); Mean Corpuscular Volume 93 fL (80-100); Mean Platelet Volume 11.2 fL (9.1-12.4); NEUTROPHILS ABSOLUTE AUTO 17.55 K/mm3 (1.96-9.15); NEUTROPHILS PERCENT AUTO 91 % (41-73); Platelet Count 255 K/mm3 (150-400); RDW Coefficient Variation 13.1 % (11.7-14.2); RDW Standard Deviation 44.8 fL (35.1-46.3); Red Blood Cell Count 4.45 M/mm3 (4.30-5.90)
[2018-05-18 11:45] LABS: Anion Gap 9 mmol/L (6-16); Blood Urea Nitrogen 18 mg/dL (8-24); Bun/Creatinine Ratio 28.3 (12.0-20.0); CO2, Blood 26 mmol/L (21-32); Calcium, Blood 9.3 mg/dL (8.5-10.1); Chloride, Blood 104 mmol/L (98-108); Creatinine, Blood 0.64 mg/dL (0.60-1.20); Glomerular Filtration Rate >60 (60-); Glucose, Blood 264 mg/dL (70-99); Potassium, Blood 3.9 mmol/L (3.5-5.5); Sodium, Blood 139 mmol/L (136-145)
[2018-05-18 11:49] LABS: Thyroid Stimulating Hormone 0.836 uIU/mL (0.360-4.800)
[2018-05-18 11:56] LABS: Base Excess Venous 0.3 mmol/L; Bicarbonate Venous 24.7 mmol/L (24.0-30.0); PCO2 Venous 38.8 mmHg (38-42); PO2 Venous 147 mmHg (38-42); pH Blood Venous 7.41 (7.34-7.37)
--- NOTE | 2018-05-18 12:29 | NUR ---
NOTIFIED DR. EVANS PT AFIB IN THE 140'S PER PCU BLACK MILL OPERATOR. DR. EVANS SAID TO GIVE IV LOPRESSOR. MEDS GIVEN PER EMAR. NOTIFIED DR. EVANS PT STILL AFIB AT 145 PER PCU BLACK MILL OPERATOR ALMOST ONE HOUR AFTER RECIEVING IV LOPRESSOR. DR. EVANS SAID SHE WILL PUT IN ORDERS FOR ANOTHER MED. NO OTHER NEW ORDERS AT THIS TIME.
--- NOTE | 2018-05-18 13:47 | NUR ---
PT AFIB AT 124-148 PER PCU PET TECHNOLOGIST ALMOST ONE HOUR AFTER IV CARDIZEM GIVEN. NOTIFIED DR. EVANS. DR. EVANS SAID TO GIVE ANOTHER 10MG IV CARDIZEM. NO OTHER NEW ORDERS AT THIS TIME.
--- NOTE | 2018-05-18 14:36 | NUR ---
REPORT FROM TANIKA TSANG. PATIENT WILL TRANSFER IN TO PCU 10 FOR NEW AFIB/RVR
--- NOTE | 2018-05-18 14:49 | NUR ---
REPORT CALLED TO HOMAR PCU NURSE. PT TRANSFERED TO PCU 10 BY BED WITH CNAS AT 1448.
--- NOTE | 2018-05-18 15:37 | NUR ---
ECHOCARDIOGRAM COMPLETE
--- NOTE | 2018-05-18 18:36 | NUR ---
Summary Pt transferred to unit at approx 1445. VSS - tachycardic. Pt has remained tachycardic - afib in the 120's - administered meds per emar - will continue to monitor. Pt is A&Ox4. On 4L O2 NC. Denies SOB currently. Denies any CP. C/o some dizziness w/movement or activity. Pt is a SBA. Calls appropriately. Repositions self. Dr. Hinkle at bedside this afternoon and states that we will continue current regimen to treat Afib RVR and PNA. Pt currently resting in bed with call light within reach. Denies any further questions, complaints or requests at this time. Will continue to monitor until report is given to blu SAGASTUME.
--- NOTE | 2018-05-18 22:57 | NUR ---
ASSUMED CARE OF PATIENT AT APPROXIMATELY 1905 FROM GAURAV Conte RN. PATIENT ALERT AND ORIENTED; REPORT TIRED OF BEING IN HOSPITAL. PATIENT HAS BEEN IN BED ALL SHIFT; USES URINAL IN BED; LBKA; USES PROSTHETIC; SBA OUT OF BED. AFIB ON TELE; RATE 120'S; OXYGEN SATURATION ABOVE 90% ON 5LPM VIA NC; DYPSNEA W/ EXCERTION REPORTED; PATIENT REPORTS THAT HE WAS HAVING TROUBLE BREATHING BEFORE SHIFT CHANGE; DAYSHIFT RN ADMINISTERED SOLUMEDROL AND PATIENT REPORTED HE FELT ALOT BETTER; PATIENT REPORTED A DOCTOR THAT HE CANNOT REMEMBER THE NAME STATED NOT TO USE ALBUTEROL INHALER UNTIL HEART IMPROVES. PATIENT NORMALLY ON ROOM AIR AT HOME; USES CPAP AT NIGHT AT HOME. PATIENT DENIES CP/PRESSURE, PAIN, NUMBNESS, TINGLING, DIZZINESS OR NAUSEA. PATIENT CURRENTLY SLEEPING IN BED; CALL LIGHT IN REACH; BED IN LOWEST POSISTION; WILL CONTINUE TO MONITOR AND ASSESS UNTIL END OF SHIFT.
[2018-05-19 04:23] LABS: BASOPHILS ABSOLUTE AUTO 0.01 K/mm3 (0.00-0.23); BASOPHILS PERCENT AUTO 0 % (0-2); EOSINOPHILS PERCENT AUTO 0 % (0-6); Hematocrit 40.2 % (37.0-53.0); Hemoglobin 12.9 g/dL (13.5-17.5); IMMATURE GRAN ABSOLUTE AUTO 0.12 K/mm3 (0.00-0.10); IMMATURE GRAN PERCENT AUTO 1 % (0-1); LYMPHOCYTES ABSOLUTE AUTO 0.68 K/mm3 (0.84-5.20); LYMPHOCYTES PERCENT AUTO 4 % (21-46); MONOCYTES ABSOLUTE AUTO 0.53 K/mm3 (0.16-1.47); MONOCYTES PERCENT AUTO 3 % (4-13); Mean Corpuscular HGB 30.3 pg (26.0-34.0); Mean Corpuscular HGB Conc 32.1 g/dL (31.5-36.5); Mean Corpuscular Volume 94 fL (80-100); Mean Platelet Volume 10.8 fL (9.1-12.4); NEUTROPHILS ABSOLUTE AUTO 15.68 K/mm3 (1.96-9.15); NEUTROPHILS PERCENT AUTO 92 % (41-73); Platelet Count 266 K/mm3 (150-400); RDW Coefficient Variation 13.2 % (11.7-14.2); RDW Standard Deviation 45.8 fL (35.1-46.3); Red Blood Cell Count 4.26 M/mm3 (4.30-5.90); White Blood Cell Count 17.02 K/mm3 (4.00-11.30)
--- NOTE | 2018-05-19 06:49 | NUR ---
PATIENT SLEPT ABOUT FIVE HOURS LAST NIGHT. HEART RATE 115-130'S; METOPROLOL IV GIVEN PRN PER ORDER. MEDICATED ONCE LAST NIGHT FOR CHRONIC BACK PAIN; HOSPITAL CPAP SET UP; CONT. PULSE OXIMETRY IN PLACE. NO OTHER ACUTE CHANGE TO REPORT. OXYMIZER AT 4LPM. WILL CONTINUE TO MONITOR AND ASSESS UNTIL END OF SHIFT.
[2018-05-19 07:15] LABS: Albumin, Blood 2.6 g/dL (3.4-5.0); Anion Gap 7 mmol/L (6-16); Blood Urea Nitrogen 29 mg/dL (8-24); Bun/Creatinine Ratio 37.4 (12.0-20.0); CO2, Blood 27 mmol/L (21-32); Calcium, Blood 9.2 mg/dL (8.5-10.1); Chloride, Blood 105 mmol/L (98-108); Creatinine, Blood 0.78 mg/dL (0.60-1.20); Glomerular Filtration Rate >60 (60-); Glucose, Blood 268 mg/dL (70-99); Potassium, Blood 4.2 mmol/L (3.5-5.5); Sodium, Blood 139 mmol/L (136-145)
--- NOTE | 2018-05-19 13:11 | NUR ---
Assumed Care: Assumed care of pt at approx 0700. VSS. In no apparent sign of distress. Pt is A&Ox4. Calls appropriately and repositions self. Denies any pain this AM. See shift assessment for detailed assessment. Dr. Glez at bedside this AM. Dr. Glez made aware of Afib RVR w/rate in the 120's-130's. Dr. Glez believes this tachycardia may be related to sepsis, and so is allowing permissive tachycardia, but to call if pts rate sustains in the 140's-150's. Pt denies any CP. Dr. Glez to adjust meds and order IV fluids. Pt currenlty resting in bed with call light within reach. Denies any further questions, complaints or requests at this time. Will continue to yola.
--- NOTE | 2018-05-19 22:42 | NUR ---
ASSUMED CARE OF PATIENT AT APPROXIMATELY 1910 FROM GAURAV Conte RN. PATIENT ALERT AND ORIENTED. PATIENT HAS BEEN IN BED ALL SHIFT; USES URINAL IN BED; LBKA; USES PROSTHETIC; SBA OUT OF BED. AFIB ON TELE; RATE 110'S AT SHIFT CHANGE; CARDIZEM GTT WAS AT 15ML/HR; TITRATED TO 10 FOR HR 100'S APPROX 2014; OXYGEN SATURATION ABOVE 90% ON 3LPM VIA OXYMIZER; DYPSNEA W/ EXCERTION REPORTED; PATIENT NORMALLY ON ROOM AIR AT HOME; USES CPAP AT NIGHT AT HOME. PATIENT DENIES CP/PRESSURE, PAIN, NUMBNESS, TINGLING, DIZZINESS OR NAUSEA. REPORTS BACK PAIN 0/10; K-PAD IN USE. IVF INFUSING PER ORDER. PATIENT CURRENTLY SLEEPING IN BED; CALL LIGHT IN REACH; BED IN LOWEST POSISTION; WILL CONTINUE TO MONITOR AND ASSESS UNTIL END OF SHIFT.
[2018-05-20 04:16] LABS: BASOPHILS ABSOLUTE AUTO 0.01 K/mm3 (0.00-0.23); BASOPHILS PERCENT AUTO 0 % (0-2); EOSINOPHILS PERCENT AUTO 0 % (0-6); Hematocrit 40.3 % (37.0-53.0); Hemoglobin 13.2 g/dL (13.5-17.5); IMMATURE GRAN ABSOLUTE AUTO 0.09 K/mm3 (0.00-0.10); IMMATURE GRAN PERCENT AUTO 1 % (0-1); LYMPHOCYTES ABSOLUTE AUTO 0.51 K/mm3 (0.84-5.20); LYMPHOCYTES PERCENT AUTO 4 % (21-46); MONOCYTES ABSOLUTE AUTO 0.71 K/mm3 (0.16-1.47); MONOCYTES PERCENT AUTO 5 % (4-13); Mean Corpuscular HGB 30.8 pg (26.0-34.0); Mean Corpuscular HGB Conc 32.8 g/dL (31.5-36.5); Mean Corpuscular Volume 94 fL (80-100); Mean Platelet Volume 11.1 fL (9.1-12.4); NEUTROPHILS ABSOLUTE AUTO 13.46 K/mm3 (1.96-9.15); NEUTROPHILS PERCENT AUTO 91 % (41-73); Platelet Count 257 K/mm3 (150-400); RDW Coefficient Variation 13.2 % (11.7-14.2); RDW Standard Deviation 45.5 fL (35.1-46.3); Red Blood Cell Count 4.28 M/mm3 (4.30-5.90); White Blood Cell Count 14.78 K/mm3 (4.00-11.30)
[2018-05-20 04:43] LABS: Magnesium, Blood 1.9 mg/dL (1.6-2.4)
[2018-05-20 04:49] LABS: Albumin, Blood 2.6 g/dL (3.4-5.0); Anion Gap 9 mmol/L (6-16); Blood Urea Nitrogen 27 mg/dL (8-24); Bun/Creatinine Ratio 43.5 (12.0-20.0); CO2, Blood 25 mmol/L (21-32); Chloride, Blood 106 mmol/L (98-108); Creatinine, Blood 0.62 mg/dL (0.60-1.20); Glomerular Filtration Rate >60 (60-); Glucose, Blood 408 mg/dL (70-99); Phosphorus, Blood 2.4 mg/dL (2.5-4.9); Sodium, Blood 140 mmol/L (136-145)
--- NOTE | 2018-05-20 06:15 | NUR ---
PATIENT SLEPT ABOUT FIVE HOURS LAST NIGHT; DID NOT USE CPAP; REMAINED ON 3LPM VIA OXYMIZER. VSS. HEART RATE AVERAGING 100-110; CARDIZEM INFUSING AT 10ML/HR. WILL CONTINUE TO MONITOR AND ASSESS UNTIL END OF SHIFT.
--- NOTE | 2018-05-20 19:33 | NUR ---
SUMM- PT A/O X3, CONT TELE RATE 90-120'S THIS SHIFT, CARDIZEM GTT INCREASED FROM 10MG/HR TO 15MG. STARTED METOPROLOL PO 5 STARTED BID. PT LUNGS WITH CLARSE RLL. ENC COUGH AND DB. CLEARING YELLOW SECRETIONS. ON 2L O2 SATS 90-91% VOIDING, HAD A BM TODAY. BLOOD SUGERS HIGH 300'S. CALLED DR COLÓN 1800 TO MAKE AWARE. INCREASED THE LANTUS HS DOSE. PT HAS A BIG APPETITE AND EATS ALL HIS TRAY THAN ASKE FOR BREAD AND BUTTER AND PEANUT BUTTER IN BETWEEN ALL MEALS. AMBULATED SBA TO BATHROOM WITH SPROSTHETIC, TOLERATED ACT WELL. TOLERATING FOOD AND FLUIDS. DENIED ANY PAIN TODAY.
--- NOTE | 2018-05-20 21:01 | NUR ---
ASSUMED CARE OF PATIENT AT APPROXIMATELY 1905 FROM LATISHA Sarabia RN. PATIENT ALERT AND ORIENTED X4. PATIENT HAS BEEN IN BED ALL SHIFT; USES URINAL IN BED; LBKA; USES PROSTHETIC; SBA OUT OF BED. AFIB ON TELE; RATE 95-100'S AT SHIFT CHANGE; CARDIZEM GTT WAS AT 15ML/HR; OXYGEN SATURATION ABOVE 90% ON 2LPM VIA OXYMIZER; DYPSNEA W/ EXCERTION REPORTED; PATIENT NORMALLY ON ROOM AIR AT HOME; USES CPAP AT NIGHT AT HOME. PATIENT DENIES CP/PRESSURE, PAIN, NUMBNESS, TINGLING, DIZZINESS OR NAUSEA. REPORTS BACK PAIN 0/10; K-PAD IN USE. PATIENT REPORTS HE IS READY TO GO HOME SOON POSSIBLE. PATIENT CURRENTLY SLEEPING IN BED; CALL LIGHT IN REACH; BED IN LOWEST POSISTION; WILL CONTINUE TO MONITOR AND ASSESS UNTIL END OF SHIFT.
[2018-05-21 04:13] LABS: BASOPHILS ABSOLUTE AUTO 0.01 K/mm3 (0.00-0.23); BASOPHILS PERCENT AUTO 0 % (0-2); EOSINOPHILS ABSOLUTE AUTO 0.01 K/mm3 (0.00-0.68); EOSINOPHILS PERCENT AUTO 0 % (0-6); Hematocrit 41.4 % (37.0-53.0); Hemoglobin 13.7 g/dL (13.5-17.5); IMMATURE GRAN ABSOLUTE AUTO 0.07 K/mm3 (0.00-0.10); IMMATURE GRAN PERCENT AUTO 1 % (0-1); LYMPHOCYTES PERCENT AUTO 4 % (21-46); MONOCYTES ABSOLUTE AUTO 0.72 K/mm3 (0.16-1.47); MONOCYTES PERCENT AUTO 5 % (4-13); Mean Corpuscular HGB 30.6 pg (26.0-34.0); Mean Corpuscular HGB Conc 33.1 g/dL (31.5-36.5); Mean Corpuscular Volume 93 fL (80-100); Mean Platelet Volume 11.2 fL (9.1-12.4); NEUTROPHILS ABSOLUTE AUTO 11.94 K/mm3 (1.96-9.15); NEUTROPHILS PERCENT AUTO 90 % (41-73); Platelet Count 272 K/mm3 (150-400); RDW Coefficient Variation 13.3 % (11.7-14.2); RDW Standard Deviation 45.1 fL (35.1-46.3); Red Blood Cell Count 4.47 M/mm3 (4.30-5.90); White Blood Cell Count 13.25 K/mm3 (4.00-11.30)
[2018-05-21 04:38] LABS: Albumin, Blood 2.8 g/dL (3.4-5.0); Anion Gap 9 mmol/L (6-16); Blood Urea Nitrogen 32 mg/dL (8-24); Bun/Creatinine Ratio 50.8 (12.0-20.0); CO2, Blood 23 mmol/L (21-32); Calcium, Blood 8.8 mg/dL (8.5-10.1); Chloride, Blood 105 mmol/L (98-108); Creatinine, Blood 0.63 mg/dL (0.60-1.20); Glomerular Filtration Rate >60 (60-); Glucose, Blood 490 mg/dL (70-99); Phosphorus, Blood 2.5 mg/dL (2.5-4.9); Potassium, Blood 4.3 mmol/L (3.5-5.5); Sodium, Blood 137 mmol/L (136-145)
--- NOTE | 2018-05-21 06:13 | NUR ---
PATIENT SLEPT ABOUT SIX HOURS LAST NIGHT; WORE CPAP FOR ABOUT FIVE HOURS; ON ROOM AIR FOR MOST OF NIGHT; AMBULATED TO BATHROOM ONCE WITH SBA. HEART RATE AVERAGING 90-100'S ALL NIGHT ON CARDIZEM AT 15ML/HR; HR INCREASED AT TIMES WHEN PATIENT WAS AWAKE OR AMBULATING; ASYMPTOMATIC. NO OTHER ACUTE CHANGES TO REPORT. WILL CONTINUE TO MONITOR AND ASSESS UNTIL END OF SHIFT.
--- NOTE | 2018-05-21 11:34 | NUR ---
Cardizem drip was titrated down to 5 cc/hour 5 mg/ hour as the heart rate was noted to be in the 85-95 beats per minute range.
--- NOTE | 2018-05-21 14:08 | NUR ---
Call to Dr. Glez at this time to update on the pt's status. Cardizem drip had been titrated down as previously documented due to pt's downward-trending heart rate; however, at this time he is staying in the 120-140 range, afib, so the cardizem rate had to again be increased. Blood pressure is stable, and the pt states that he has been at rest, sitting up in bed, for the last hour. States that his only discomfort at this time is some mild pain on either side of his neck, but that had started to resolve soon after the increase in cardizem dose most recently. He is otherwise asymptomatic. No new orders received at this time.
--- NOTE | 2018-05-21 17:58 | NUR ---
Cardizem drip was titrated up again to 15 mg/ hour as the pt's heart rate is still 110-140. Vital signs are stable, and the pt denies chest discomfort, dyspnea or pain. Stated that he did have some shaking of his hands, but it is resolved at this time. He is sitting up in bed, talking, pleasantly conversant.
[2018-05-22 04:10] LABS: BASOPHILS ABSOLUTE AUTO 0.02 K/mm3 (0.00-0.23); BASOPHILS PERCENT AUTO 0 % (0-2); EOSINOPHILS ABSOLUTE AUTO 0.01 K/mm3 (0.00-0.68); EOSINOPHILS PERCENT AUTO 0 % (0-6); Hematocrit 39.3 % (37.0-53.0); Hemoglobin 13.2 g/dL (13.5-17.5); IMMATURE GRAN ABSOLUTE AUTO 0.13 K/mm3 (0.00-0.10); IMMATURE GRAN PERCENT AUTO 1 % (0-1); LYMPHOCYTES ABSOLUTE AUTO 1.36 K/mm3 (0.84-5.20); LYMPHOCYTES PERCENT AUTO 11 % (21-46); MONOCYTES ABSOLUTE AUTO 1.07 K/mm3 (0.16-1.47); MONOCYTES PERCENT AUTO 8 % (4-13); Mean Corpuscular HGB 31.2 pg (26.0-34.0); Mean Corpuscular HGB Conc 33.6 g/dL (31.5-36.5); Mean Corpuscular Volume 93 fL (80-100); Mean Platelet Volume 11.2 fL (9.1-12.4); NEUTROPHILS ABSOLUTE AUTO 10.29 K/mm3 (1.96-9.15); NEUTROPHILS PERCENT AUTO 80 % (41-73); Platelet Count 244 K/mm3 (150-400); RDW Coefficient Variation 13.3 % (11.7-14.2); RDW Standard Deviation 45.5 fL (35.1-46.3); Red Blood Cell Count 4.23 M/mm3 (4.30-5.90); White Blood Cell Count 12.88 K/mm3 (4.00-11.30)
[2018-05-22 04:38] LABS: Albumin, Blood 2.6 g/dL (3.4-5.0); Anion Gap 7 mmol/L (6-16); Blood Urea Nitrogen 31 mg/dL (8-24); Bun/Creatinine Ratio 48.2 (12.0-20.0); CO2, Blood 24 mmol/L (21-32); Calcium, Blood 8.5 mg/dL (8.5-10.1); Chloride, Blood 106 mmol/L (98-108); Creatinine, Blood 0.64 mg/dL (0.60-1.20); Glomerular Filtration Rate >60 (60-); Glucose, Blood 212 mg/dL (70-99); Phosphorus, Blood 2.7 mg/dL (2.5-4.9); Potassium, Blood 3.8 mmol/L (3.5-5.5); Sodium, Blood 137 mmol/L (136-145)
--- NOTE | 2018-05-22 06:44 | NUR ---
SHIFT SUMMARY PT RESTING IN ROOM COMFORTABLY. SLEPT WELL T/O NIGHT ON CPAP. NO ACUTE CHANGES IN STATUS. CARDIZEM DRIP REMAINS AT 15ML/HR D/T PT HR REMAINING 90-110. RESP EVEN UNLABORED W/ SATS >90%. DENIES PAIN. DENIES NEEDS AT THIS TIME. CALL LIGHT IN REACH.
--- NOTE | 2018-05-22 08:27 | NUR ---
Heart rate noted in 90s; scheduled metoprolol was given one hour early and cardizem drip was decreased from 15 cc/hour to 10 cc/hour. Heart rate is now in the 110-120 range. Pt's blood pressure is stable, and the pt reports no symptoms.
--- NOTE | 2018-05-22 11:11 | NUR ---
CARDIZEM STOPPED AT THIS TIME.
--- NOTE | 2018-05-22 14:18 | NUR ---
Call to DR. Davalos regarding pt's heart rate of 120-155 bpm. The pt is asymtomatic, but heart rate has been trending up since noon. Oral cardizem was given as ordered at noon. Cardizem gtt discontinued at [address] Davalos's verbal order.
--- NOTE | 2018-05-22 17:03 | NUR ---
The pt's heart rate is 120-150, occasionally spiking to [address] Davalos was notified and additional cardizem dose was given. Blood pressure is stable. The pt is c/o tiny occasional "electrical twinges" in his left chest. Oxygen applied at 2 l/min even though spo2 is WNL, for elevated heart rate. The pt is otherwise without complaints. He is sitting on the side of the bed, talking with his . Pleasantly conversant, non-anxious, and without any apparent discomfort other than the intermittent twinges which he described to me.
--- NOTE | 2018-05-22 17:09 | NUR ---
Jorge says that the oxygen has helped and his chest feels better.
--- NOTE | 2018-05-23 04:16 | NUR ---
SHIFT SUMMARY: PATIENT HR SLOWLY TRENDING DOWN AND BP REMAINING STABLE POST CARDIZEM AND METOPROLOL PER MD ORDERS. APPROX 0030 PATIENTS HR TRENDING MORE IN THE 80'S AND 90'S, APPROX 0300 RATE NOW CONTROLLED. ALL OTHER VSS, CALL LIGHT WITHIN REACH, PATIENT HAS NO COMPLAINTS, BED LOW AND LOCKED.
[2018-05-23 04:27] LABS: BASOPHILS ABSOLUTE AUTO 0.03 K/mm3 (0.00-0.23); BASOPHILS PERCENT AUTO 0 % (0-2); EOSINOPHILS ABSOLUTE AUTO 0.01 K/mm3 (0.00-0.68); EOSINOPHILS PERCENT AUTO 0 % (0-6); Hematocrit 42.1 % (37.0-53.0); Hemoglobin 14.2 g/dL (13.5-17.5); IMMATURE GRAN ABSOLUTE AUTO 0.22 K/mm3 (0.00-0.10); IMMATURE GRAN PERCENT AUTO 2 % (0-1); LYMPHOCYTES ABSOLUTE AUTO 1.45 K/mm3 (0.84-5.20); LYMPHOCYTES PERCENT AUTO 11 % (21-46); MONOCYTES ABSOLUTE AUTO 0.97 K/mm3 (0.16-1.47); MONOCYTES PERCENT AUTO 7 % (4-13); Mean Corpuscular HGB 31.2 pg (26.0-34.0); Mean Corpuscular HGB Conc 33.7 g/dL (31.5-36.5); Mean Corpuscular Volume 93 fL (80-100); Mean Platelet Volume 11.2 fL (9.1-12.4); NEUTROPHILS ABSOLUTE AUTO 10.77 K/mm3 (1.96-9.15); NEUTROPHILS PERCENT AUTO 80 % (41-73); Platelet Count 253 K/mm3 (150-400); RDW Coefficient Variation 13.4 % (11.7-14.2); RDW Standard Deviation 45.6 fL (35.1-46.3); Red Blood Cell Count 4.55 M/mm3 (4.30-5.90); White Blood Cell Count 13.45 K/mm3 (4.00-11.30)
[2018-05-23 04:42] LABS: Albumin, Blood 2.6 g/dL (3.4-5.0); Anion Gap 7 mmol/L (6-16); Blood Urea Nitrogen 30 mg/dL (8-24); Bun/Creatinine Ratio 46.7 (12.0-20.0); CO2, Blood 24 mmol/L (21-32); Calcium, Blood 8.3 mg/dL (8.5-10.1); Chloride, Blood 107 mmol/L (98-108); Creatinine, Blood 0.64 mg/dL (0.60-1.20); Glomerular Filtration Rate >60 (60-); Glucose, Blood 266 mg/dL (70-99); Phosphorus, Blood 2.9 mg/dL (2.5-4.9); Potassium, Blood 3.9 mmol/L (3.5-5.5); Sodium, Blood 138 mmol/L (136-145)
--- NOTE | 2018-05-23 07:45 | NUR ---
INITIAL ASSESSMENT: Pt resting in bed. States that he is feeling good and is anxious to be discharged. LS with rhonchi in bases. HR irregular, tele shows afib at 88. States that he feels like his HR is under control. BT positive. Pulses palp. L BKA. Prosthetic at bedside. Pt VSS. Will continue to monitor Pt. needs.
[2018-05-23] MEDS ORDERED: DILT120 PO (09:22)
[2018-05-23] MEDS ORDERED: INSULANPEN SC (09:23)
[2018-05-23] MEDS ORDERED: METO100ER PO (09:24)
[2018-05-23] MEDS ORDERED: XARELTO20 MG PO (09:25)
[2018-05-23] MEDS ORDERED: LEVO750 PO (09:25)
--- NOTE | 2018-05-23 10:08 | NUR ---
Update: Discharge order. Will follow through. Antibiotic running per orders.
--- NOTE | 2018-05-23 10:40 | NUR ---
DISCHARGE: Pt was given verbal and written discharge instructions. Verbalized understanding, denies quiestions. Rx were faxed to [facility]. IV was discontinued, cath intact. Pt called daughter and got himself dressed. Denies needs. Will monitor.
--- NOTE | 2018-05-23 10:57 | NUR ---
pt left via w/c with escort. Stable at time of discharge.
== END 2018-05-23 10:45 | disposition home or self-care (01) | DRG 871 ==
LOC: ER 10:04 → MEDS 14:11 → PCU 14:11 → MEDS 15:07 → PCU 05-18 14:28
PROVIDERS: Family Medicine; Physician Assistant; ADMIT Internal Medicine
DX: A41.9 Sepsis, unspecified organism (principal); J96.01 Acute respiratory failure with hypoxia; J18.9 Pneumonia, unspecified organism; J44.1 Chronic obstructive pulmonary disease with (acute) exacerbation; J44.0 Chronic obstructive pulmonary disease with (acute) lower respiratory infection; J98.11 Atelectasis; R65.20 Severe sepsis without septic shock; I10 Essential (primary) hypertension; E87.6 Hypokalemia; I48.91 Unspecified atrial fibrillation; E11.65 Type 2 diabetes mellitus with hyperglycemia; K21.9 Gastro-esophageal reflux disease without esophagitis; T38.0X5A Adverse effect of glucocorticoids and synthetic analogues, initial encounter; G47.33 Obstructive sleep apnea (adult) (pediatric); E78.5 Hyperlipidemia, unspecified; E66.01 Morbid (severe) obesity due to excess calories; D64.89 Other specified anemias; I25.10 Atherosclerotic heart disease of native coronary artery without angina pectoris; Z68.36 Body mass index [BMI] 36.0-36.9, adult; Z88.8 Allergy status to other drugs, medicaments and biological substances; Z91.018 Allergy to other foods; Z79.01 Long term (current) use of anticoagulants; Z79.82 Long term (current) use of aspirin; Z79.899 Other long term (current) drug therapy; Z87.891 Personal history of nicotine dependence; Z79.84 Long term (current) use of oral hypoglycemic drugs; Z79.52 Long term (current) use of systemic steroids; Z89.512 Acquired absence of left leg below knee
CPT/HCPCS: 36415; 71046; 71260; 80048; 80053; 80069; 82803; 82947; 83605; 83735; 83880; 84443; 84484; 85025; 87040; 87070; 87205; 87486; 87581; 87633; 87798; 93005; 93010; 93306; 94640; 94660; 94664; 94762; 96365; 96375; 98960; 99285-25; A9270; J1650; J1956; J2270; J2543; J2920; J2930; J3010; J3370; J7050; J7120; Q9967

== ENCOUNTER 2018-05-26 09:09 | Observation (INO) | payer MEDICARE ==
[~2018-05-26] VITALS: Ht 190.5 cm; Wt 130.4 kg
[~2018-05-26 09:09] MED LIST changes: +DILT120 PO; +INSULANPEN SC; +METO100ER PO; +XARELTO20 MG PO
[2018-05-26 10:13] LABS: BASOPHILS ABSOLUTE AUTO 0.04 K/mm3 (0.00-0.23); BASOPHILS PERCENT AUTO 0 % (0-2); EOSINOPHILS ABSOLUTE AUTO 0.07 K/mm3 (0.00-0.68); EOSINOPHILS PERCENT AUTO 1 % (0-6); Hematocrit 46.8 % (37.0-53.0); Hemoglobin 15.5 g/dL (13.5-17.5); IMMATURE GRAN PERCENT AUTO 4 % (0-1); LYMPHOCYTES ABSOLUTE AUTO 2.59 K/mm3 (0.84-5.20); LYMPHOCYTES PERCENT AUTO 18 % (21-46); MONOCYTES ABSOLUTE AUTO 1.38 K/mm3 (0.16-1.47); MONOCYTES PERCENT AUTO 10 % (4-13); Mean Corpuscular HGB 30.4 pg (26.0-34.0); Mean Corpuscular HGB Conc 33.1 g/dL (31.5-36.5); Mean Corpuscular Volume 92 fL (80-100); Mean Platelet Volume 11.1 fL (9.1-12.4); NEUTROPHILS ABSOLUTE AUTO 9.47 K/mm3 (1.96-9.15); NEUTROPHILS PERCENT AUTO 67 % (41-73); Platelet Count 248 K/mm3 (150-400); RDW Coefficient Variation 14.2 % (11.7-14.2); White Blood Cell Count 14.05 K/mm3 (4.00-11.30)
[2018-05-26 10:30] LABS: Alanine Aminotransfer (ALT/SGP 34 U/L (12-78); Albumin, Blood 3.1 g/dL (3.4-5.0); Albumin/Globulin Ratio 0.9 (0.8-1.8); Alk Phos 58 U/L (50-136); Anion Gap 7 mmol/L (6-16); Aspartate Aminotrans (AST/SGOT 8 U/L (12-37); Bilirubin, Total 0.7 mg/dL (0.1-1.0); Blood Urea Nitrogen 25 mg/dL (8-24); Bun/Creatinine Ratio 30.8 (12.0-20.0); CO2, Blood 31 mmol/L (21-32); Calcium, Blood 8.5 mg/dL (8.5-10.1); Chloride, Blood 102 mmol/L (98-108); Creatinine, Blood 0.81 mg/dL (0.60-1.20); Globulin, Blood 3.4 g/dL (2.2-4.0); Glomerular Filtration Rate >60 (60-); Glucose, Blood 108 mg/dL (70-99); Potassium, Blood 3.7 mmol/L (3.5-5.5); Sodium, Blood 140 mmol/L (136-145); Total Protein, Blood 6.5 g/dL (6.4-8.2)
--- NOTE | 2018-05-26 13:01 | NUR ---
NURSING PCU DAYSHIFT: Assumed care of pt at approx 1230. Arrived from ER via gurney accompanied by RN, karl w/SBA to unit bed using a LLE prosthetic d/t hx of L BKA. Denies any pain/discomfort at rest. Skin is intact w/no breakdown noted. Tele in place, NSR, no c/o CP/pressure, SBP 90's, 1+ RLE edema. L/S coarse in the bases w/scattered wheezes, denies dyspnea, O2 sat stable on RA, occ dry/WIRELESS MANAGER cough. Abd SNT, BT+, voiding w/o difficulty per pt. PIV x1, NS ordered to infuse at 150cc/hr. No s/s of acute distress at this time. Pt denies any current needs or questions regarding plan of care. Call light remains in reach and pt is able to use w/o difficulty. Cont to monitor for any changes.
--- NOTE | 2018-05-26 17:41 | NUR ---
NURSING PCU DAYSHIFT SUMMARY: No significant changes noted since arrival to PCU. VS have remained stable, respiratory and cardiac status unchanged. Pt continues to c/o weakness though this appears to have improved somewhat. No longer c/o nausea, pt has had a good appetite and tolerated meals well. No s/s of acute distress at this time. Call light in reach and pt has been able to use w/o difficulty. Cont to monitor until rpt is given to NOC RN.
--- NOTE | 2018-05-26 20:31 | NUR ---
PM NOTE. ASSUMED CARE OF PT APROX 1900. PT IS A&Ox4 PLEASENT AND COOPERATIVE WITH CARE. PT WAS ADMITTED DUE TO HYPOGLYCEMIA AND HYPOTENSION. PT'S CBG'S HAVE BEEN STABLE AT >70. PT'S BP WAS 90/50. PT DENIES ANY SOB, LIGHTHEADED/DIZZINESS OR CHEST PAIN AT THIS TIME. TELE INTACT, SR IN THE 70'S, 1+ EDEMA TO THE PT'S RLE. L/C COARSE T/O PT ON RA W/ STATS >90%. BT PRESENT AND HYPERACTIVE, ABD IS SOFT AND NONTENDER TO PALP. PT IS A L BKA. CALL LIGHT IN REACH, BED IS LOCKED AND LOW WILL CONTINUE TO MONITOR.
[2018-05-27 04:49] LABS: Alanine Aminotransfer (ALT/SGP 26 U/L (12-78); Albumin, Blood 2.7 g/dL (3.4-5.0); Albumin/Globulin Ratio 0.9 (0.8-1.8); Alk Phos 52 U/L (50-136); Anion Gap 6 mmol/L (6-16); Aspartate Aminotrans (AST/SGOT 7 U/L (12-37); Bilirubin, Total 0.4 mg/dL (0.1-1.0); Blood Urea Nitrogen 19 mg/dL (8-24); Bun/Creatinine Ratio 25.9 (12.0-20.0); CO2, Blood 30 mmol/L (21-32); Calcium, Blood 8.8 mg/dL (8.5-10.1); Chloride, Blood 103 mmol/L (98-108); Creatinine, Blood 0.74 mg/dL (0.60-1.20); Globulin, Blood 2.9 g/dL (2.2-4.0); Glomerular Filtration Rate >60 (60-); Glucose, Blood 125 mg/dL (70-99); Potassium, Blood 4.4 mmol/L (3.5-5.5); Sodium, Blood 139 mmol/L (136-145); Total Protein, Blood 5.6 g/dL (6.4-8.2)
--- NOTE | 2018-05-27 06:04 | NUR ---
SHIFT SUMMARY. NO ACUTE CHANGES NOTED IN PT. PT'S BP HAS BEEN HYPOTENSIVE WITH SBP IN THE 90'S, HOWEVER PT HAS NOT BEEN SYMPTOMATIC. PT'S BLOOD SUGARS HAVE BEEN >70 T/O THIS SHIFT WELL. PT'S OTHER VS HAVE BEEN STABLE T/O SHIFT. PT DENIES ANY CHEST PAIN/PRESSURE, SOB OR N/V. PT USED CPAP DURING SLEEP MOST OF THE NIGHT. CALL LIGHT IN REACH, BED IS LOCKED AND LOW, WILL CONTINUE TO MONITOR UNTIL REPORT IS GIVEN TO ONCOMING RN.
--- NOTE | 2018-05-27 08:06 | NUR ---
NURSING PCU DAYSHIFT: Assumed care of pt at approx 0700. A/O, pleasant, cooperative w/care. Denies any pain/discomfort. No c/o of dizziness or general weakness. Skin is intact w/no breakdown noted. Ambulates independently w/use of prosthetic d/t hx of L BKA. Tele in place, NSR, no c/o CP/pressure, SBP 90's, trace RLE edema. L/S fairly cta t/o w/dim bases, respirations shallow and regular, O2 sat stable on RA, occ dry/REJECTOR cough, denies dyspnea. Abd SNT, BT+, voiding w/o difficulty per pt. PIV x1, s/l. No s/s of acute distress at this time. Pt denies any current needs though is anticipating possible discharge home today. Metoprolol dose held this a.m. until parameters are discussed w/PMD. Call light remains in reach, cont to monitor for changes.
--- NOTE | 2018-05-27 17:44 | NUR ---
NURSING PCU DAYSHIFT SUMMARY: No significant changes noted t/o the shift. VS remains stable, cardiac and respiratory status unchanged. Seen by PMD, new d/o received. Daughter at bedside ealier in shift, update provided. No s/s of acute distress at this time, call light remains in reach, cont to monitor until rpt is given to NOC RN.
--- NOTE | 2018-05-27 23:02 | NUR ---
PM NOTE. ASSUMED CARE OF PT APROX 1900. PT IS A&Ox4, PLEASENT AND COOPERATIVE WITH CARE, PT IS VERY ANXIOUS TO D/C HOME TOMORROW. TELE INTACT, SR IN THE 70'S-80'S'S PER COOPERER, PT'S BP 99/64. PT IS SLIGHTLY DIAPHORECTIC, PT'S BLOOD SUGAR WAS CHECKED AND WAS 152, PT DENIED ANY CHEST PAIN/PRESSURE, DIZZINESS/LIGHTHEADEDNESS, SOB OR N/V. TRACED EDEMA NOTED TO THE PT'S RLE. L/S CLEAR T/O BUT COARSE IN THE BASES, PT ENCOURAGED TO USE THE I.S. AT THE BEDSIDE. BREATHING IN EVEN AND UNLABORED WITH STATS >90% ON RA. PT USES CPAP AT NIGHT. BT PRESENT AND HYPERACTIVE, ABD IS SOFT AND NONTENDER TO PALP. PT VOIDING CLEAR YELLOW URINE W/O DIFFICULTY. PT DENIES CONSTIPATION. PT IS ABLE TO AMBULATE IND TO THE BATHROOM W/THE USE OF LEFT PROSTHETIC LEG DUE TO LBKA. CALL LIGHT IN REACH, BED IS LOCKED AND LOW, WILL CONTINUE TO MONITOR.
--- NOTE | 2018-05-28 05:49 | NUR ---
SHIFT SUMMARY. NO ACUTE CHANGES NOTED THIS SHIFT, PT IS NO LONGER DIAPHORETIC. PT'S BP HAS BEEN SLIGHTLY HYPOTENSIVE WITH SBP IN THE 90'S BUT PT HAS NOT BEEN SYMPTOMATIC, OTHER VS HAVE BEEN STABLE T/O SHIFT. PT HAS BEEN IND TO THE BATHROOM. PT IS VERY ANXIOUS TO D/C HOME TODAY. PT'S BLOOD SUGARS HAVE BEEN STABLE THIS SHIFT WELL. CALL LIGHT IN REACH, BED IS LOCKED AND LOW WILL CONTINUE TO MONITOR UNTIL REPORT CAN BE GIVEN TO ONCOMING RN.
--- NOTE | 2018-05-28 12:31 | NUR ---
DISCHARGE NOTE PT STABLE FOR DISCHARGE. IV REMOVED. DISCHARGE INSTRUCTIONS, DISCHARGE MEDICATIONS AND DIABETIC EDUCATION PROVIDED TO PT, PT VERBALIZES UNDERSTANDING AND DENIES QUESTIONS. PT AMBULATED TO CAR AT DISCHARGE WITH BELONGINGS AND DISCHARGE INSTRUCTIONS.
== END 2018-05-28 12:33 | disposition home or self-care (01) ==
LOC: ER 09:09 → PCU 09:10
PROVIDERS: Physician Assistant; ADMIT Hospitalist
DX: E16.2 Hypoglycemia, unspecified (principal); I95.9 Hypotension, unspecified; E11.9 Type 2 diabetes mellitus without complications; J44.9 Chronic obstructive pulmonary disease, unspecified; E66.01 Morbid (severe) obesity due to excess calories; I25.10 Atherosclerotic heart disease of native coronary artery without angina pectoris; Z99.81 Dependence on supplemental oxygen; Z79.4 Long term (current) use of insulin; Z89.512 Acquired absence of left leg below knee; Z88.8 Allergy status to other drugs, medicaments and biological substances
CPT/HCPCS: 36415; 80053; 82947; 84484; 85025; 87081; 87430; 93005; 93010; 94640; 94660; 94760; 94762; 96361; 96374; 99285-25; G0378; J2405; J7030; J7120

== ENCOUNTER 2018-10-22 08:24 | Day surgery (SDC) | payer MEDICARE ==
[~2018-10-22] VITALS: Wt 138.4 kg
[~2018-10-22 08:24] MED LIST changes: -BUDE10.22 INH; +EPIPEN0.3 MG/0.3 IM; +LEVFLO500 PO; +Percocet 5-3251 EACH PO; +Questran4 GM; -Questran4 GM PO; +Robaxin-750750 MG PO
--- NOTE | 2018-10-22 09:56 | NUR ---
ADMITTED TO [facility]. AGREES WITH PLANNED PROCEDURE.
--- NOTE | 2018-10-22 10:43 | NUR ---
PT C/O WEAKNESS TO RIGHTLEG. DR. PATEL INFORMED AND EVALUATED PT. WANTS TO MONITOR FOR 30 MORE MINUTES AND MAY D/C HOME IF HE FEELS THE SAME OR BETTER..
--- NOTE | 2018-10-22 10:45 | NUR ---
WRITTEN AND VERBAL D/C INSTUCTIONS GIVEN TO PT WITH STATED UNDERSTANDING.
--- NOTE | 2018-10-22 11:22 | NUR ---
PT STATES WEAKNEES TO LEG IMPROVING. ABLE TO LIFT LEG WITH MORE EASE AND ABLE TO BEAR WEIGHT. PT D/C HOME.
[2019-01-02] MEDS ORDERED: Neurontin600 MG PO (11:56)
[2019-01-02] MEDS ORDERED: OMEPRAZOLE20 MG PO (11:56)
[2019-01-02] MEDS ORDERED: METO100ER PO (11:56)
[2019-01-02] MEDS ORDERED: Glucophage1000 MG PO (11:56)
[2019-01-02] MEDS ORDERED: TAMS.4ER PO (11:56)
[2019-01-02] MEDS ORDERED: XARELTO20 MG PO (11:57)
[2019-01-02] MEDS ORDERED: Simvastatin40 MG PO (11:57)
[2019-01-02] MEDS ORDERED: INSULANPEN SC (11:57)
[2019-01-02] MEDS ORDERED: EPIPEN 2-P0.3 MG/0.3 IM (11:57)
[2019-01-02] MEDS ORDERED: TIOT18 INH (11:58)
[2019-01-02] MEDS ORDERED: ALBU3IS INH (11:58)
[2019-01-02] MEDS ORDERED: Percocet 5-3251 EACH PO (11:58)
[2019-01-02] MEDS ORDERED: BUDE6HFA INH (11:58)
[2019-01-02] MEDS ORDERED: Questran4 GM PO (11:58)
[2019-01-02] MEDS ORDERED: Cyclobenzaprine5 MG PO (11:59)
[2019-01-02] MEDS ORDERED: ALBU90OI INH (12:00)
== END 2018-10-22 22:38 | disposition home or self-care (01) ==
LOC: ORSCMMR 08:24 → ORD 10:00 → ORSCMMR 10:00
PROVIDERS: Orthopaedic Surgery
PROC: 3E0R33Z Introduction of Anti-inflammatory into Spinal Canal, Percutaneous Approach (ICD-10-PCS; principal; 2018-10-22 10:00)
PROC: B01B1ZZ Fluoroscopy of Spinal Cord using Low Osmolar Contrast (ICD-10-PCS; principal; 2018-10-22 10:00)
DX: M54.16 Radiculopathy, lumbar region (principal); I10 Essential (primary) hypertension; E11.9 Type 2 diabetes mellitus without complications; J44.9 Chronic obstructive pulmonary disease, unspecified; E78.5 Hyperlipidemia, unspecified; I42.8 Other cardiomyopathies; G47.33 Obstructive sleep apnea (adult) (pediatric); Z79.4 Long term (current) use of insulin; Z79.899 Other long term (current) drug therapy
CPT/HCPCS: J1040

== ENCOUNTER → 2018-11-28 | Outpatient (CLI) | payer MEDICARE ==
[~2018-11-28] MED LIST changes: +ALBU3IS INH; +Cyclobenzaprine5 MG PO; +EPIPEN 2-P0.3 MG/0.3 IM; +Neurontin600 MG PO; +OMEPRAZOLE20 MG PO; +Questran4 GM PO; +Simvastatin40 MG PO
== END | disposition home or self-care (01) ==
LOC: LAB UCHC 14:34 → LAB SHORT 14:34
DX: L30.9 Dermatitis, unspecified (principal)
CPT/HCPCS: 87070; 87075; 87205

== ENCOUNTER 2019-01-10 06:05 | Day surgery (SDC) | payer MEDICARE ==
[~2019-01-10] VITALS: Ht 190.5 cm; Wt 139.3 kg
--- NOTE | 2019-01-10 13:22 | NUR ---
01/10/19 1322 Malou Gillespie AT 1315 I ASSUMED CARE OF PT FROM [facility].DM. PT C/O NAUSEA BUT NO EMESIS. ZOFRAN AND COLD CLOTH TO NECK OFFERED. PT HAS VERY SWOLLENRED FACE FROM PRONE POSITION. HAS SOME PETECHIAE ON WHITES OF EYES AND FACE
== END 2019-01-10 14:03 | disposition home or self-care (01) ==
LOC: ORSCSDS 06:05
PROVIDERS: Orthopaedic Surgery
PROC: 01NB0ZZ Release Lumbar Nerve, Open Approach (ICD-10-PCS; principal; 2019-01-10 07:30)
DX: M48.062 Spinal stenosis, lumbar region with neurogenic claudication (principal); M47.26 Other spondylosis with radiculopathy, lumbar region; G47.33 Obstructive sleep apnea (adult) (pediatric); E11.9 Type 2 diabetes mellitus without complications; I10 Essential (primary) hypertension; Z79.4 Long term (current) use of insulin; Z79.899 Other long term (current) drug therapy
CPT/HCPCS: 82947; J0171; J0330; J0690; J1100; J1885; J2250; J2310; J2405; J2704; J3010; J3370; J7120

== ENCOUNTER 2019-05-06 08:07 | Emergency (ER) | payer MEDICARE ==
[~2019-05-06] VITALS: Ht 190.5 cm; Wt 136.1 kg
[2019-05-06] MEDS ORDERED: METF500 PO (08:22)
[2019-05-06] MEDS ORDERED: GABA300 PO (08:22)
[2019-05-06] MEDS ORDERED: ZOCOR20 MG PO (08:22)
[2019-05-06] MEDS ORDERED: METO50ER PO (08:22)
[2019-05-06] MEDS ORDERED: TAMS.4ER PO (08:22)
[2019-05-06] MEDS ORDERED: XARELTO20 MG PO (08:22)
[2019-05-06] MEDS ORDERED: OMEPRAZOLE20 MG PO (08:23)
[2019-05-06] MEDS ORDERED: CHOLP PO (08:23)
[2019-05-06] MEDS ORDERED: INSULANPEN SC (08:23)
[2019-05-06] MEDS ORDERED: Loratadine10 MG PO (08:23)
[2019-05-06] MEDS ORDERED: TIOT18 INH (08:24)
[2019-05-06] MEDS ORDERED: Accuneb0.63 MG/3 (08:24)
[2019-05-06] MEDS ORDERED: BUDE6HFA INH (08:24)
[2019-05-06 08:47] LABS: BASOPHILS ABSOLUTE AUTO 0.02 K/mm3 (0.00-0.23); BASOPHILS PERCENT AUTO 0 % (0-2); EOSINOPHILS ABSOLUTE AUTO 0.14 K/mm3 (0.00-0.68); EOSINOPHILS PERCENT AUTO 2 % (0-6); Hematocrit 45.6 % (37.0-53.0); Hemoglobin 14.8 g/dL (13.5-17.5); IMMATURE GRAN ABSOLUTE AUTO 0.02 K/mm3 (0.00-0.10); IMMATURE GRAN PERCENT AUTO 0 % (0-1); LYMPHOCYTES ABSOLUTE AUTO 1.57 K/mm3 (0.84-5.20); LYMPHOCYTES PERCENT AUTO 24 % (21-46); MONOCYTES ABSOLUTE AUTO 0.88 K/mm3 (0.16-1.47); MONOCYTES PERCENT AUTO 14 % (4-13); Mean Corpuscular HGB 30.5 pg (26.0-34.0); Mean Corpuscular HGB Conc 32.5 g/dL (31.5-36.5); Mean Corpuscular Volume 94 fL (80-100); Mean Platelet Volume 11.1 fL (9.1-12.4); NEUTROPHILS ABSOLUTE AUTO 3.89 K/mm3 (1.96-9.15); NEUTROPHILS PERCENT AUTO 60 % (41-73); Platelet Count 223 K/mm3 (150-400); RDW Coefficient Variation 13.5 % (11.7-14.2); Red Blood Cell Count 4.86 M/mm3 (4.30-5.90); White Blood Cell Count 6.52 K/mm3 (4.00-11.30)
[2019-05-06 09:16] LABS: Influenza A Negative (NEGATIVE); Influenza B Negative (NEGATIVE)
[2019-05-06 09:17] LABS: Alanine Aminotransfer (ALT/SGP 24 U/L (12-78); Albumin, Blood 3.6 g/dL (3.4-5.0); Albumin/Globulin Ratio 1.1 (0.8-1.8); Alk Phos 79 U/L (50-136); Anion Gap 6 mmol/L (6-16); Aspartate Aminotrans (AST/SGOT 20 U/L (12-37); Bilirubin, Total 0.5 mg/dL (0.1-1.0); Blood Urea Nitrogen 16 mg/dL (8-24); Bun/Creatinine Ratio 24.7 (12.0-20.0); CO2, Blood 26 mmol/L (21-32); Calcium, Blood 8.8 mg/dL (8.5-10.1); Chloride, Blood 109 mmol/L (98-108); Creatinine, Blood 0.65 mg/dL (0.60-1.20); Globulin, Blood 3.4 g/dL (2.2-4.0); Glomerular Filtration Rate >60 (60-); Glucose, Blood 106 mg/dL (70-99); Sodium, Blood 141 mmol/L (136-145); Troponin I <0.015 ng/mL (0.000-0.040)
[2019-05-06] MEDS ORDERED: Prednisone20 MG PO (09:49)
[2019-05-06] MEDS ORDERED: LEVO750 PO (09:49)
== END 2019-05-06 10:05 | disposition home or self-care (01) ==
LOC: ER 08:07
PROVIDERS: Emergency Medicine
DX: J44.1 Chronic obstructive pulmonary disease with (acute) exacerbation (principal); Z91.018 Allergy to other foods; Z88.1 Allergy status to other antibiotic agents; Z88.8 Allergy status to other drugs, medicaments and biological substances; Z79.899 Other long term (current) drug therapy; Z79.4 Long term (current) use of insulin; E11.9 Type 2 diabetes mellitus without complications; I10 Essential (primary) hypertension; Z87.891 Personal history of nicotine dependence
CPT/HCPCS: 36415; 71046; 80053; 84484; 85025; 87804; 93005; 93010; 94640; 99284-25

== ENCOUNTER 2019-06-29 10:10 | Emergency (ER) | payer MEDICARE ==
[~2019-06-29] VITALS: Ht 190.5 cm; Wt 136.5 kg
[~2019-06-29 10:10] MED LIST changes: +Accuneb0.63 MG/3; +CHOLP PO; +Loratadine10 MG PO; +METO50ER PO; +ZOCOR20 MG PO
[2019-06-29 11:07] LABS: BASOPHILS ABSOLUTE AUTO 0.02 K/mm3 (0.00-0.23); BASOPHILS PERCENT AUTO 0 % (0-2); EOSINOPHILS ABSOLUTE AUTO 0.13 K/mm3 (0.00-0.68); EOSINOPHILS PERCENT AUTO 2 % (0-6); Hematocrit 46.7 % (37.0-53.0); Hemoglobin 15.2 g/dL (13.5-17.5); IMMATURE GRAN ABSOLUTE AUTO 0.02 K/mm3 (0.00-0.10); IMMATURE GRAN PERCENT AUTO 0 % (0-1); LYMPHOCYTES ABSOLUTE AUTO 1.68 K/mm3 (0.84-5.20); LYMPHOCYTES PERCENT AUTO 21 % (21-46); MONOCYTES ABSOLUTE AUTO 0.66 K/mm3 (0.16-1.47); MONOCYTES PERCENT AUTO 8 % (4-13); Mean Corpuscular HGB 30.5 pg (26.0-34.0); Mean Corpuscular HGB Conc 32.5 g/dL (31.5-36.5); Mean Corpuscular Volume 94 fL (80-100); Mean Platelet Volume 11.1 fL (9.1-12.4); NEUTROPHILS ABSOLUTE AUTO 5.69 K/mm3 (1.96-9.15); NEUTROPHILS PERCENT AUTO 70 % (41-73); Platelet Count 231 K/mm3 (150-400); RDW Coefficient Variation 13.2 % (11.7-14.2); RDW Standard Deviation 44.9 fL (35.1-46.3); Red Blood Cell Count 4.99 M/mm3 (4.30-5.90)
[2019-06-29 11:28] LABS: Alanine Aminotransfer (ALT/SGP 23 U/L (12-78); Albumin, Blood 3.7 g/dL (3.4-5.0); Albumin/Globulin Ratio 1.1 (0.8-1.8); Alk Phos 83 U/L (50-136); Anion Gap 8 mmol/L (6-16); Aspartate Aminotrans (AST/SGOT 16 U/L (12-37); Bilirubin, Total 0.6 mg/dL (0.1-1.0); Blood Urea Nitrogen 16 mg/dL (8-24); Bun/Creatinine Ratio 24.5 (12.0-20.0); CO2, Blood 26 mmol/L (21-32); Calcium, Blood 9.1 mg/dL (8.5-10.1); Chloride, Blood 108 mmol/L (98-108); Creatinine, Blood 0.65 mg/dL (0.60-1.20); Globulin, Blood 3.5 g/dL (2.2-4.0); Glomerular Filtration Rate >60 (60-); Glucose, Blood 145 mg/dL (70-99); Potassium, Blood 3.7 mmol/L (3.5-5.5); Sodium, Blood 142 mmol/L (136-145); Total Protein, Blood 7.2 g/dL (6.4-8.2); Troponin I <0.015 ng/mL (0.000-0.040)
[2019-06-29] MEDS ORDERED: Ativan1 MG PO (15:57)
== END 2019-06-29 16:31 | disposition home or self-care (01) ==
LOC: ER 10:10
PROVIDERS: Emergency Medicine
DX: R07.89 Other chest pain (principal); E11.9 Type 2 diabetes mellitus without complications; F43.9 Reaction to severe stress, unspecified; J44.9 Chronic obstructive pulmonary disease, unspecified; I10 Essential (primary) hypertension; E78.00 Pure hypercholesterolemia, unspecified; Z88.1 Allergy status to other antibiotic agents; Z91.018 Allergy to other foods; Z88.8 Allergy status to other drugs, medicaments and biological substances; Z79.4 Long term (current) use of insulin; Z79.899 Other long term (current) drug therapy; Z87.891 Personal history of nicotine dependence
CPT/HCPCS: 36415; 71046; 80053; 83880; 84484; 85025; 85379; 93005; 93010; 99284-25

== ENCOUNTER → 2020-02-13 | Outpatient (CLI) | payer OTHER ==
[~2020-02-13] MED LIST changes: +Ativan1 MG PO
== END | disposition home or self-care (01) ==
LOC: LAB 12:50 → LAB SHORT 12:50
DX: E11.42 Type 2 diabetes mellitus with diabetic polyneuropathy (principal); M79.671 Pain in right foot; L08.89 Other specified local infections of the skin and subcutaneous tissue
CPT/HCPCS: 87210

== ENCOUNTER → 2021-04-06 | Outpatient (CLI) | payer MEDICARE | LOC: LAB SHORT 12:00 | DX: L03.031 Cellulitis of right toe (principal); Z91.010 Allergy to peanuts; Z88.6 Allergy status to analgesic agent; Z88.1 Allergy status to other antibiotic agents; Z88.8 Allergy status to other drugs, medicaments and biological substances | CPT/HCPCS: 87071; 87075; 87077; 87186; 87205 ==

== ENCOUNTER 2021-05-28 07:10 | Emergency (ER) | payer MEDICARE ==
[~2021-05-28] VITALS: Ht 193 cm; Wt 99.8 kg
[2021-05-28] MEDS ORDERED: NEOPOLHCSU LEFTEAR (08:44)
== END 2021-05-28 08:52 | disposition home or self-care (01) ==
LOC: ER 07:10
DX: H60.92 Unspecified otitis externa, left ear (principal); J44.9 Chronic obstructive pulmonary disease, unspecified; I10 Essential (primary) hypertension; E78.00 Pure hypercholesterolemia, unspecified; E11.9 Type 2 diabetes mellitus without complications; Z87.891 Personal history of nicotine dependence
CPT/HCPCS: 99282; A9270

== ENCOUNTER 2021-08-19 10:56 | Day surgery (SDC) | payer MEDICARE ==
[~2021-08-19] VITALS: Ht 190.5 cm; Wt 134.8 kg
[~2021-08-19 10:56] MED LIST changes: +NEOPOLHCSU LEFTEAR
[2021-08-19] MEDS ORDERED: INSULANI (11:39)
[2021-08-19] MEDS ORDERED: AMOCLA500 (11:45)
[2021-08-19] MEDS ORDERED: EPIPEN 2-P0.3 MG/0.1 (11:47)
--- NOTE | 2021-08-19 13:26 | NUR ---
08/19/21 1326 Marlo Sevilla SMALL OPEN AREA ON TIP OF RIGHT GREAT TOE.
== END 2021-08-19 15:16 | disposition home or self-care (01) ==
LOC: ORSCSDS 10:56
PROVIDERS: Podiatrist
PROC: 0Y6P0Z3 Detachment at Right 1st Toe, Low, Open Approach (ICD-10-PCS; principal; 2021-08-19 12:30)
PROC: 0SQP0ZZ Repair Right Toe Phalangeal Joint, Open Approach (ICD-10-PCS; principal; 2021-08-19 12:30)
DX: L97.512 Non-pressure chronic ulcer of other part of right foot with fat layer exposed (principal); M20.5X1 Other deformities of toe(s) (acquired), right foot; I10 Essential (primary) hypertension; E78.5 Hyperlipidemia, unspecified; I48.91 Unspecified atrial fibrillation; Z79.01 Long term (current) use of anticoagulants; G47.33 Obstructive sleep apnea (adult) (pediatric); J44.9 Chronic obstructive pulmonary disease, unspecified; Z87.891 Personal history of nicotine dependence; E11.40 Type 2 diabetes mellitus with diabetic neuropathy, unspecified; Z79.4 Long term (current) use of insulin; E66.9 Obesity, unspecified; Z68.38 Body mass index [BMI] 38.0-38.9, adult; Z79.899 Other long term (current) drug therapy
CPT/HCPCS: 82947; 88305; 88311; J0690; J1100; J2250; J2370; J2405; J2704; J3010

== ENCOUNTER 2021-08-31 09:54 | Emergency (ER) | payer MEDICARE ==
[~2021-08-31] VITALS: Ht 190.5 cm; Wt 134.7 kg
[~2021-08-31 09:54] MED LIST changes: +AMOCLA500; +EPIPEN 2-P0.3 MG/0.1; +INSULANI
[2021-08-31] MEDS ORDERED: NYAMYC TOP (10:46)
[2021-08-31] MEDS ORDERED: ALEVAZOL56.7 G1 TOP (10:46)
== END 2021-08-31 11:09 | disposition home or self-care (01) ==
LOC: ER 09:54
DX: B37.2 Candidiasis of skin and nail (principal); J44.9 Chronic obstructive pulmonary disease, unspecified; I10 Essential (primary) hypertension; E78.00 Pure hypercholesterolemia, unspecified; E11.9 Type 2 diabetes mellitus without complications; Z87.891 Personal history of nicotine dependence; Z88.1 Allergy status to other antibiotic agents; Z91.018 Allergy to other foods; Z88.6 Allergy status to analgesic agent; Z79.84 Long term (current) use of oral hypoglycemic drugs; Z79.899 Other long term (current) drug therapy; Z79.4 Long term (current) use of insulin; Z89.512 Acquired absence of left leg below knee
CPT/HCPCS: 99282

== ENCOUNTER 2021-09-10 08:33 | Emergency (ER) | payer MEDICARE ==
[~2021-09-10] VITALS: Ht 190.5 cm; Wt 135.2 kg
[~2021-09-10 08:33] MED LIST changes: +ALEVAZOL56.7 G1 TOP; +NYAMYC TOP
[2021-09-10] MEDS ORDERED: MINOCYCLINE HC100 M2 PO (10:13)
== END 2021-09-10 10:31 | disposition home or self-care (01) ==
LOC: ER 08:33
DX: L25.9 Unspecified contact dermatitis, unspecified cause (principal); J44.9 Chronic obstructive pulmonary disease, unspecified; I10 Essential (primary) hypertension; E11.9 Type 2 diabetes mellitus without complications; Z87.891 Personal history of nicotine dependence; Z89.512 Acquired absence of left leg below knee; Z88.1 Allergy status to other antibiotic agents; Z88.8 Allergy status to other drugs, medicaments and biological substances; Z91.018 Allergy to other foods; Z79.899 Other long term (current) drug therapy; Z79.84 Long term (current) use of oral hypoglycemic drugs
CPT/HCPCS: 90714

== ENCOUNTER → 2021-12-17 | Outpatient (CLI) | payer MEDICARE ==
[~2021-12-17] MED LIST changes: +MINOCYCLINE HC100 M2 PO
== END | disposition home or self-care (01) ==
LOC: LAB SHORT 13:28 → LAB 13:28
DX: L24.9 Irritant contact dermatitis, unspecified cause (principal)
CPT/HCPCS: 87070; 87077; 87147; 87186; 87205

== ENCOUNTER 2023-06-23 11:41 | Emergency (ER) | payer MEDICARE ==
[~2023-06-23] VITALS: Ht 182.9 cm; Wt 90.7 kg
[~2023-06-23 11:41] MED LIST changes: +ALBU2.5V5 INH; +Avodart0.5 MG PO; +CHOLESTYRAMI239.4 G1 PO; +CITALOPRAM HBR10 MG PO; +Cyclobenzaprine5 MG; +DOXY100 PO; +DUTA.5 PO; +ESCI10 PO; +GABA400 PO; +JARDIANCE10 MG PO; +LOSA25 PO; +SYMBICORT 160-4.6 GM; +SYMBICORT 160-4.6 GM IH; +TRULICITY1.5 MG/0.1 SQ; +Voltaren100 GM
[2023-06-23 13:11] LABS: Hematocrit 35.1 % (37.0-53.0); Hemoglobin 11.9 g/dL (13.5-17.5); Mean Corpuscular HGB 32.9 pg (26.0-34.0); Mean Corpuscular HGB Conc 33.9 g/dL (31.5-36.5); Mean Corpuscular Volume 97 fL (80-100); Mean Platelet Volume 11.3 fL (9.1-12.4); Platelet Count 218 K/mm3 (150-400); RDW Coefficient Variation 16.4 % (11.7-14.2); RDW Standard Deviation 57.1 fL (35.1-46.3); Red Blood Cell Count 3.62 M/mm3 (4.30-5.90); White Blood Cell Count 24.32 K/mm3 (4.00-11.30)
[2023-06-23 13:30] LABS: Albumin, Blood 3.5 g/dL (3.4-5.0); Albumin/Globulin Ratio 1.1 (0.8-1.8); Bilirubin, Total 0.8 mg/dL (0.1-1.0); Bun/Creatinine Ratio 30.9 (12.0-20.0); Calcium, Blood 9.2 mg/dL (8.5-10.1); Creatinine, Blood 0.52 mg/dL (0.60-1.20); Globulin, Blood 3.2 g/dL (2.2-4.0); Magnesium, Blood 2.3 mg/dL (1.6-2.4); Potassium, Blood 3.6 mmol/L (3.5-5.5); Total Protein, Blood 6.7 g/dL (6.4-8.2)
[2023-06-23 13:37] LABS: BAND PERCENT MAN 3 % (0-8); BASOPHILS PERCENT MAN 0 % (0-2); EOSINOPHILS PERCENT MAN 0 % (0-6); LYMPHOCYTES ABSOLUTE MAN 1.21 K/mm3 (0.84-5.20); LYMPHOCYTES PERCENT MAN 5 % (21-46); MONOCYTES ABSOLUTE MAN 0.24 K/mm3 (0.16-1.47); MONOCYTES PERCENT MAN 1 % (4-13); NEUTROPHILS ABSOLUTE MAN 22.86 K/mm3 (1.96-9.15); SEG NEUTROPHILS PERCENT MAN 91 % (41-73); TOTAL CELLS COUNTED 100
[2023-06-23] MEDS ORDERED: Meclizine HCl 25 MG Tab PO ONE (16:35)
[2023-06-23] MEDS ORDERED: NS 1,000 ML IV SCH (16:35)
[2023-06-23] MEDS ORDERED: MECL25 PO (17:37)
[2023-06-23 18:00] VITALS: BP 112/78
== END 2023-06-23 18:14 | disposition home or self-care (01) ==
LOC: ER 11:41
PROVIDERS: Physician Assistant
DX: I95.9 Hypotension, unspecified (principal); D72.829 Elevated white blood cell count, unspecified; Z91.018 Allergy to other foods; Z88.1 Allergy status to other antibiotic agents; Z88.8 Allergy status to other drugs, medicaments and biological substances; Z79.899 Other long term (current) drug therapy; Z79.84 Long term (current) use of oral hypoglycemic drugs; J44.9 Chronic obstructive pulmonary disease, unspecified; I10 Essential (primary) hypertension; E78.00 Pure hypercholesterolemia, unspecified; E11.9 Type 2 diabetes mellitus without complications; Z87.891 Personal history of nicotine dependence
CPT/HCPCS: 71046; 80053; 83735; 85025; 96360; 99284-25; A9270; J7030

== ENCOUNTER 2023-09-11 08:31 | Day surgery (SDC) | payer MEDICARE ==
[2023-09-11] VITALS (12 sets, daily range): BP systolic 99–113; BP diastolic 64–85
[~2023-09-11] VITALS: Ht 190.5 cm; Wt 110.2 kg
[~2023-09-11 08:31] MED LIST changes: +DURAGESIC1 EAC1 TOP; +MECL25 PO; +VISBIOME 112.51 EACH PO
[2023-09-11] MEDS ORDERED: FAMO40 (09:26)
[2023-09-11] MEDS ORDERED: OLAN10 PO (09:29)
[2023-09-11] MEDS ORDERED: ONDA4 PO (09:30)
[2023-09-11] MEDS ORDERED: Lactated Ringer's 1,000 ML IV SCH (10:30)
[2023-09-11] MEDS ORDERED: CeFAZolin Sodium 2,000 MG in NS 100 ML IV SCH (10:30)
[2023-09-11] MEDS ORDERED: FentaNYL Citrate 50 MCG/ML 2 ML Injection ONE (10:55)
[2023-09-11] MEDS ORDERED: propofoL 20 ML IV ONE (10:55)
[2023-09-11] MEDS ORDERED: Ondansetron HCl 2 MG / ML 2ML Vial ONE (10:56)
[2023-09-11] MEDS ORDERED: Dexamethasone Sod Phos 10 MG/ML 1ML VIAL ONE (10:56)
[2023-09-11] MEDS ORDERED: Midazolam HCl 1MG / ML 2ML Vial IV PRN (11:00)
[2023-09-11] MEDS ORDERED: Lidocaine HCl 1% 5 ML SYR INJ ONE (11:00)
--- NOTE | 2023-09-11 11:06 | NUR ---
PT AMBULATORY INTO SDS WITH LEFT LOWER EXTREMITY PROSTHETIC. PT DENIES PAIN.HISTORY AND ALLERGIES REVIEWED. PT HAS SLEEP APNEA, BUT DOES NOT WEAR CPAP AT HOME. PT STATES THAT HE SLEEPS IN HIS RECLINER. LUNGS CLEAR-SATS>90% ON RA. NPO STATUS CONFIRMED. PT DAUGHTER WILL BE PICKING HIM UP AFTER SURGERY. PT BELONGINGS AND PROSTHETIC TAKEN TO PACU.
[2023-09-11] MEDS ORDERED: Lidocaine HCL 1% 10 ML MDV ONE (11:27)
[2023-09-11] MEDS ORDERED: Bupivacaine 0.5% HCl 5 MG/ML 30MLVIAL ONE (11:27)
[2023-09-11] MEDS ORDERED: Phenylephrine HCl 100 MCG/ML-NS 10MLSYR (1MG/10ML) ONE (12:02)
[2023-09-11] MEDS ORDERED: HYDROcodone 5-APAP 325 TAB PO PRN (13:05)
--- NOTE | 2023-09-11 14:16 | NUR ---
Discharge instructions reviewed with patient. Patient verbalizes understanding. Copy given to patient to take home.Pt discharged to home-out via wheelchair with belongings and discharge instructions on hand.
== END 2023-09-11 14:16 | disposition home or self-care (01) ==
LOC: ORSCMMR 08:31 → ORD 10:00 → ORSCMMR 14:16
PROVIDERS: Surgery
PROC: 0JH60WZ Insertion of Totally Implantable Vascular Access Device into Chest Subcutaneous Tissue and Fascia, Open Approach (ICD-10-PCS; principal; 2023-09-11 10:00)
DX: C25.0 Malignant neoplasm of head of pancreas (principal); E11.9 Type 2 diabetes mellitus without complications; G47.33 Obstructive sleep apnea (adult) (pediatric); I48.91 Unspecified atrial fibrillation; J44.9 Chronic obstructive pulmonary disease, unspecified; E78.5 Hyperlipidemia, unspecified; I42.8 Other cardiomyopathies; Z79.85 Long-term (current) use of injectable non-insulin antidiabetic drugs; Z79.84 Long term (current) use of oral hypoglycemic drugs; Z79.899 Other long term (current) drug therapy
CPT/HCPCS: 77001; 82947; A9270; C1788; J0690; J1100; J1642; J2001; J2250; J2371; J2405; J2704; J3010; J7120

== ENCOUNTER 2024-02-12 10:57 | Inpatient (IN) | payer MEDICARE ==
[~2024-02-12] VITALS: Ht 190.5 cm; Wt 103.9 kg
[~2024-02-12 10:57] MED LIST changes: +FAMO40 PO; -GABA400 PO; +GABAPENTIN600 MG PO; +GLUCOPHAGE1000 M1 PO; +OLAN2.5 PO; +ONDA8 PO; -Voltaren100 GM; +Voltaren100 GM TOP
[2024-02-12] MEDS ORDERED: NS 1,000 ML IV SCH ×2 (11:05→14:35)
[2024-02-12 11:41] LABS: Hematocrit 30.6 % (37.0-53.0); Hemoglobin 10.6 g/dL (13.5-17.5); Mean Corpuscular HGB 34.2 pg (26.0-34.0); Mean Corpuscular HGB Conc 34.6 g/dL (31.5-36.5); Mean Corpuscular Volume 99 fL (80-100); Mean Platelet Volume 10.5 fL (9.1-12.4); Platelet Count 153 K/mm3 (150-400); RDW Coefficient Variation 15.5 % (11.7-14.2); RDW Standard Deviation 55.9 fL (35.1-46.3); White Blood Cell Count 2.69 K/mm3 (4.00-11.30)
[2024-02-12 11:55] LABS: Albumin, Blood 2.6 g/dL (3.4-5.0); Albumin/Globulin Ratio 0.6 (0.8-1.8); Bilirubin, Total 0.4 mg/dL (0.1-1.0); Bun/Creatinine Ratio 22.5 (12.0-20.0); Creatinine, Blood 0.67 mg/dL (0.60-1.20); Globulin, Blood 4.6 g/dL (2.2-4.0); Magnesium, Blood 1.5 mg/dL (1.6-2.4); Potassium, Blood 3.2 mmol/L (3.5-5.5); Total Protein, Blood 7.2 g/dL (6.4-8.2)
[2024-02-12 12:01] LABS: BASOPHILS PERCENT MAN 0 % (0-2); EOSINOPHILS PERCENT MAN 0 % (0-6); LYMPHOCYTES ABSOLUTE MAN 0.56 K/mm3 (0.84-5.20); LYMPHOCYTES PERCENT MAN 21 % (21-46); MONOCYTES ABSOLUTE MAN 0.29 K/mm3 (0.16-1.47); MONOCYTES PERCENT MAN 11 % (4-13); NEUTROPHILS ABSOLUTE MAN 1.82 K/mm3 (1.96-9.15); SEG NEUTROPHILS PERCENT MAN 68 % (41-73); TOTAL CELLS COUNTED 100
[2024-02-12 12:16] LABS: Influenza A, PCR NEGATIVE (NEGATIVE); Influenza B, PCR NEGATIVE (NEGATIVE); Resp Syncytial Virus, PCR NEGATIVE (NEGATIVE); SARS-Cov-2 (COVID-19) PCR, MMC NEGATIVE (NEGATIVE)
[2024-02-12] MEDS ORDERED: CefTRIAXone Sodium 1,000 MG in NS 100 ML IV ONE (13:15)
[2024-02-12] MEDS ORDERED: Doxycycline Hyclate 100 MG TAB PO ONE (13:15)
[2024-02-12] MEDS ORDERED: FLU VACC TS2024-25(6MOS UP)/PF 45 MCG/0.5 ML SYRINGE IM SCH (14:55)
[2024-02-12] MEDS ORDERED: Ondansetron 4 MG TAB PO PRN (15:00)
[2024-02-12] MEDS ORDERED: Albuterol 2.5 MG/3 ML VIAL INH PRN (15:00)
[2024-02-12] MEDS ORDERED: Potassium Chloride 20 MEQ TabCR PO ONE (15:10)
[2024-02-12] MEDS ORDERED: Insulin Human Lispro 100 Units/ML 3ML Syringe SC SCH (16:30)
[2024-02-12] MEDS ORDERED: Empagliflozin 10 MG TAB PO SCH (17:23)
[2024-02-12] MEDS ORDERED: Tiotropium Bromide 2.5 MCG/ACT MIST INHAL (10 ACT/4 GM) INH SCH (17:40)
[2024-02-12] MEDS ORDERED: Mometasone/Formoterol MDI 200/5 mcg 13 GM INH SCH (17:40)
[2024-02-12] MEDS ORDERED: Rivaroxaban 10 MG Tab PO SCH (18:00)
[2024-02-12 18:17] VITALS: BP 110/71
[2024-02-12 19:31] VITALS: BP 106/71
[2024-02-12] MEDS ORDERED: Gabapentin 400 MG Cap PO SCH (21:00)
[2024-02-12] MEDS ORDERED: Metoprolol Succinate 50 MG TABCR PO SCH (21:00)
[2024-02-12] MEDS ORDERED: Doxycycline Hyclate 100 MG TAB PO SCH (21:00)
[2024-02-12] MEDS ORDERED: Lactobacil 2-S.Thermo-Bifido 1 1 Cap PO SCH (21:00)
[2024-02-12] MEDS ORDERED: Famotidine 20 MG Tab PO SCH (21:00)
[2024-02-12] MEDS ORDERED: OLANZapine 10 MG Tab PO SCH (21:00)
[2024-02-13 04:20] VITALS: BP 105/63
--- NOTE | 2024-02-13 05:34 | NUR ---
PT APPEARED TO BE SLEEPING AND RESTFULL. ABLE TO TO MAKE NEEDS KNOWN AND RECEPTIVE TO CARE. BED IN LOW POSITION, RAILS TIMES TWO, CALL LIGHT WITHIN REACH.
[2024-02-13 06:45] LABS: Hematocrit 28.3 % (37.0-53.0); Hemoglobin 9.9 g/dL (13.5-17.5); Mean Corpuscular HGB 34.4 pg (26.0-34.0); Mean Corpuscular Volume 98 fL (80-100); Mean Platelet Volume 10.7 fL (9.1-12.4); Platelet Count 136 K/mm3 (150-400); RDW Coefficient Variation 15.6 % (11.7-14.2); RDW Standard Deviation 56.7 fL (35.1-46.3); Red Blood Cell Count 2.88 M/mm3 (4.30-5.90); White Blood Cell Count 3.08 K/mm3 (4.00-11.30)
[2024-02-13 07:13] LABS: Bun/Creatinine Ratio 18.9 (12.0-20.0); Creatinine, Blood 0.58 mg/dL (0.60-1.20); Potassium, Blood 3.6 mmol/L (3.5-5.5)
[2024-02-13 07:27] VITALS: BP 108/70
[2024-02-13] MEDS ORDERED: Dutasteride 0.5 MG Cap PO SCH (09:00)
[2024-02-13] MEDS ORDERED: Atorvastatin 10 MG Tab PO SCH (09:00)
[2024-02-13] MEDS ORDERED: Cholestyramine/Aspartame 4 GM Packet PO SCH (09:00)
[2024-02-13] MEDS ORDERED: Citalopram Hydrobromide 20 MG Tab PO SCH (09:00)
[2024-02-13] MEDS ORDERED: Enoxaparin 40 MG/0.4 ML SYR SC SCH (09:00)
[2024-02-13] MEDS ORDERED: Cyclobenzaprine HCl 10 MG Tab PO SCH (09:00)
[2024-02-13] MEDS ORDERED: Losartan Potassium 25 MG Tab PO SCH (09:00)
[2024-02-13] MEDS ORDERED: Tamsulosin HCl 0.4 MG Cap PO SCH (09:00)
[2024-02-13] MEDS ORDERED: CefTRIAXone Sodium 1,000 MG in NS 100 ML IV SCH (12:00)
[2024-02-13] MEDS ORDERED: NS 250 ML IV PRN (12:00)
[2024-02-13] MEDS ORDERED: CREON DR 36,001 EACH PO (15:19)
[2024-02-13] MEDS ORDERED: DULERA 200 MCG-13 GM INH (15:20)
[2024-02-13] MEDS ORDERED: PANTOPRAZOLE SO40 M2 PO (15:22)
[2024-02-13] MEDS ORDERED: OXYC10TA19 PO (15:23)
[2024-02-13] MEDS ORDERED: CHOLESTYRAMI239.4 G1 PO (15:31)
[2024-02-13] MEDS ORDERED: ALBU8HFA2 INH (15:32)
[2024-02-13 15:43] VITALS: BP 109/76
--- NOTE | 2024-02-13 17:15 | NUR ---
SHIFT SUMMARY PT CONT LEVEL OF CARE WITH NO ACUTE CHANGES NOTED. PT IS A&O X4 AND A STAND BY ASSIST. PT GAIT NOTED TO BE STABLE. PT NOTED TO HAVE BKA BUT WEARS A PROSTETIC. PT STATED THAT HE IS COLD THIS SHIFT BUT REMAINS AFEBRILE WHILE CHEEKS NOTED TO BE FLUSHED.
[2024-02-13 19:39] VITALS: BP 105/72
[2024-02-14 04:28] VITALS: BP 106/68
--- NOTE | 2024-02-14 05:55 | NUR ---
SHIFT SUMMARY NOC PT A/O X 4. PLEASANT AND COOPERATIVE WITH CARE. VSS. ON O2 2L/NC SPO2 >92%. PT HAS NOT HAD PRODUCTIVE COUGH AND SPUTUM SAMPLE STILL OUTSTANDING. ON TELE SINUS TACHYCARDIA IN LOW 100'S. PT HOME 100 MCG FENTANYL PATCH ORDERED AND NOW IN PLACE. PT CURRENTLY RESTING WITH BED IN LOWEST POSITION, AND CALL LIGHT WITHIN REACH.
[2024-02-14 06:00] LABS: Hematocrit 27.6 % (37.0-53.0); Hemoglobin 9.6 g/dL (13.5-17.5); Mean Corpuscular HGB 34.2 pg (26.0-34.0); Mean Corpuscular HGB Conc 34.8 g/dL (31.5-36.5); Mean Corpuscular Volume 98 fL (80-100); Mean Platelet Volume 10.7 fL (9.1-12.4); Platelet Count 147 K/mm3 (150-400); RDW Coefficient Variation 15.4 % (11.7-14.2); RDW Standard Deviation 55.8 fL (35.1-46.3); Red Blood Cell Count 2.81 M/mm3 (4.30-5.90); White Blood Cell Count 3.66 K/mm3 (4.00-11.30)
[2024-02-14 06:47] LABS: Calcium, Blood 9.1 mg/dL (8.5-10.1); Creatinine, Blood 0.54 mg/dL (0.60-1.20); Potassium, Blood 3.2 mmol/L (3.5-5.5)
[2024-02-14 07:29] VITALS: BP 94/56
[2024-02-14] MEDS ORDERED: Potassium Chloride 20 MEQ TabCR PO ONE (07:50)
[2024-02-14] MEDS ORDERED: Polyethylene Glycol 3350 17 gm PO PRN (07:50)
[2024-02-14 15:43] VITALS: BP 115/70
--- NOTE | 2024-02-14 19:45 | NUR ---
NO ACUTE CHANGES THIS SHIFT. 4L NC, R/A AT BASELINE. PRODUCTIVE COUGH, SPUTUM SAMPLE SENT. INCREASED SOB WITH AMBULATION. IV ANTIBIOTICS CONTINUED. PT IS ALERT AND ORIENTED X4, ABLE TO MAKE NEEDS KNOWN. DID C/O SOME NAUSEA RELATED TO DINNER OPTIONS. TREATED PER EMAR. INDEPENDENT IN ROOM
[2024-02-14 19:57] VITALS: BP 90/69
[2024-02-14] MEDS ORDERED: Docusate Sodium/Senna 1 Tab PO SCH (21:00)
[2024-02-14] MEDS ORDERED: GuaiFENesin 600 MG TabCR PO SCH (21:00)
[2024-02-15 03:42] VITALS: BP 112/71
--- NOTE | 2024-02-15 04:14 | NUR ---
SHIFT SUMMARY PT PLEASANT AND COOPERATIVE WITH CARE. LEFT BKA WITH INDIPENDENT PROSTHETIC. EVENING VITALS SHOWED SLIGHTLY RAISED TEMP AND LOW BP. PT STATED HE FELT "FINE, OTHER THAN THE PNEUMONIA". RLL AND RML BOTH PRESENTED WITH CRACKLES. PT DENIES AND BLURRY VISION/SEEING SPOTS/VISION CHANGES. DENIED HEADACHE. PT STILL PRODUCING THICK MUCUS. PT SLEPT WITHOUT INCIDENT AFTER EVENING MEDS. APPROX 0320, PT HAD RUN OF SVT WHILE SLEEPING. THIS RN WOKE PT, WHO WAS COHERENT AND FULLY RESPONSIVE. EXPLAINED TO PT WHAT HAD HAPPENED. HE STATED, THIS WAS A "NORMAL THING FOR ME". HR BACK TO SR @91 BPM WHILE SPEAKING WITH HIM. WILL CONTINUE TO MONITOR.
[2024-02-15 05:25] LABS: Hematocrit 27.7 % (37.0-53.0); Hemoglobin 9.7 g/dL (13.5-17.5); Mean Corpuscular HGB 34.3 pg (26.0-34.0); Mean Corpuscular Volume 98 fL (80-100); Mean Platelet Volume 11.2 fL (9.1-12.4); Platelet Count 134 K/mm3 (150-400); RDW Coefficient Variation 15.5 % (11.7-14.2); RDW Standard Deviation 55.6 fL (35.1-46.3); Red Blood Cell Count 2.83 M/mm3 (4.30-5.90); White Blood Cell Count 3.28 K/mm3 (4.00-11.30)
[2024-02-15 06:01] LABS: Anion Gap 15 mmol/L (3-11); Blood Urea Nitrogen 14 mg/dL (8-24); Bun/Creatinine Ratio 25.2 (12.0-20.0); CO2, Blood 20 mmol/L (21-32); Calcium, Blood 9.1 mg/dL (8.5-10.1); Chloride, Blood 108 mmol/L (98-108); Creatinine, Blood 0.56 mg/dL (0.60-1.20); Glomerular Filtration Rate 113 (60-); Glucose, Blood 121 mg/dL (70-99); Phosphorus, Blood 2.8 mg/dL (2.5-4.9); Potassium, Blood 3.5 mmol/L (3.5-5.5); Sodium, Blood 139 mmol/L (136-145)
[2024-02-15 07:17] VITALS: BP 110/75
[2024-02-15 14:42] VITALS: BP 105/77
--- NOTE | 2024-02-15 18:41 | NUR ---
pt lips chapped and myles, soft bp and dark urine, md notified, pr dr. cuello order 500 cc iv bolus at 100 ml/hr. pt reporting generalized chronic pain. fentanyl patch not due to be changed until tomorrow, per cuate [place] order 5 mg oxycodine q 6 prn for pain
[2024-02-15] MEDS ORDERED: NS 500 ML IV SCH (18:45)
[2024-02-15] MEDS ORDERED: OxyCODONE HCL 5 MG TAB PO PRN (18:55)
--- NOTE | 2024-02-15 19:16 | NUR ---
pt reports not feeling well at the end of this shift. dr. cuello notified. orders placed for iv fluids and pain medications, able to make needs known. remains on 4l nc. independent in the room
[2024-02-15 19:26] VITALS: BP 110/73
[2024-02-15 19:54] VITALS: BP 122/73
--- NOTE | 2024-02-16 01:36 | NUR ---
rEPORT WAS RECEIVED AT 1950. PT WAS TRANSFERRED TO BED.SKIN CHECK WAS DONE WITH NO SKIN CONCERNS. RT WAS HERE AND INCREASED PTS O2 TO 5L PER NC. PT ALERT ORIENTED X 4 AND AWARE OF ROOM CHANGE. PT RESTING IN BED AT THIS TIME.
[2024-02-16 03:06] VITALS: BP 107/72
--- NOTE | 2024-02-16 04:08 | NUR ---
SHIFT SUMMARY: PT ALERT ORIENTED X 4 PLEASANT AND COOPERATIVE WITH CARE. C/O BACK PAIN MEDICATED WITH OXY X 1 WITH GOOD RELIEF. RT WAS IN AND INCREASED HIS OXYGEN TO 5 L VIA NC. C/O SOB ON EXERTION AFTER AMBULATING TO THE BATHROOM. REMAINS ON ROCEPHIN AND DOXYCYCLINE FOR PNEUMONIA. HAS A bka AND USES A PROSTHESIS. REMAINS ON TELEMETRY WITH NSR AND A RATE OF 86. TELETECH DID CALL AND SAY THAT HIS HEART RATE WENT UP TO 157 AT ONE TIME BUT DIDNT SUSTAIN AND WENT BACK DOWN TO 91 RIGHT AWAY, REMAINS ON FSBS AC AND HS. HIS HS WAS 163. HES RESTING IN BED AT THIS TIME. VSS.
[2024-02-16 07:19] VITALS: BP 110/65
[2024-02-16] MEDS ORDERED: GUAI600T33 PO (15:03)
[2024-02-16 15:04] VITALS: BP 109/72
--- NOTE | 2024-02-16 17:27 | NUR ---
SHIFT/DISCHARGE SUMMARY: PATIENT A/OX4, PLEASANT AND COOPERATIVE c CARE. PATIENT DENIES CP/PRESSURE, SOB, N/V AND DIZZINESS. PATIENT ON TELE, SR HR IN THE 90'S BPM. PATIENT ON 4L O2 VIA NC, SATTING 90-94%. PATIENT HAS GREAT APPETITE, CONTINENT OF BOWEL/BLADDER, USES URINAL AND AMBULATES TO BATHROOM INDEPENDENTLY T/O SHIFT. PATIENT RECEIVED SCHEDULED MEDS PER EMAR. VITAL SIGNS REVIEWED. PATIENT REQUESTING TO GO HOME SINCE BEGINNING OF SHIFT. PER PATIENT, HE'S WORRIED ABOUT HIS ALONE AT HOME c MS. DR. NOVAK NOTIFIED c PATIENT REQUEST DURING AM ROUNDING. PER DR. NOVAK HE WILL ORDER HOME O2 EVAL. PATIENT HAD HOME O2 EVAL THIS PM, RT RECOMMENDING 4L AT REST AND 8L HIFLOW c AMBULATIONS. PATIENT EDUCATED ON O2 USED BASED ON RT'S RECOMMENDATION AND THIS RN IS CONCERNED THAT HE MIGHT NOT READY TO BE DISCHARGE BASED ON HIS O2 DEMAND c AMBULATION, STAYING ONE MORE NIGHT WOULD BENEFIT HIM. PATIENT VERBALIZED UNDERSTANDING, STATED, "I UNDERSTAND YOUR CONCERNED, BUT I AM STILL GOING HOME. MY IS BY HERSELF AT HOME AND SHE HAS MS AND SHE NEEDS HELP c HER MEDICATION." NOTIFIED DR. NOVAK REGARDING THIS CONCERNED. PORTABLE O2 DELIVERED TO ROOM LATE THIS PM BY HOLLEY MORAN. PIV WAS DC'D BY ELEANOR VALENZUELA. PATIENT DISCHARGE HOME. DISCHARGE INSTRUCTIONS PACKET GIVEN TO PATIENT. EDUCATED PATIENT REGARDING ADMITTING DX'S OF ARF c HYPOXIA, S/S, TX, RESUME HOME MEDS AND TO F/U c PCP. PATIENT HAS NO NEW RX ORDERED. ALL PATIENT PERSONAL BELONGINGS WERE SENT HOME c THE PATIENT. PATIENT LEFT THE ROOM AT 1720 TRANSPORTED VIA WHEELCHAIR BY NICOLAS WEBSTER TO PATIENT ENTRANCE.
== END 2024-02-16 17:43 | disposition home or self-care (01) | DRG 871 ==
LOC: ER 10:57 → MEDS 14:49
PROVIDERS: Internal Medicine; Physician Assistant; ADMIT Internal Medicine
DX: A41.9 Sepsis, unspecified organism (principal); J18.9 Pneumonia, unspecified organism; J69.0 Pneumonitis due to inhalation of food and vomit; J96.01 Acute respiratory failure with hypoxia; I50.32 Chronic diastolic (congestive) heart failure; J44.0 Chronic obstructive pulmonary disease with (acute) lower respiratory infection; C25.9 Malignant neoplasm of pancreas, unspecified; R65.20 Severe sepsis without septic shock; I48.91 Unspecified atrial fibrillation; N40.0 Benign prostatic hyperplasia without lower urinary tract symptoms; E87.6 Hypokalemia; E66.01 Morbid (severe) obesity due to excess calories; I11.0 Hypertensive heart disease with heart failure; I27.20 Pulmonary hypertension, unspecified; G47.33 Obstructive sleep apnea (adult) (pediatric); E11.42 Type 2 diabetes mellitus with diabetic polyneuropathy; K21.9 Gastro-esophageal reflux disease without esophagitis; F32.A Depression, unspecified; E78.5 Hyperlipidemia, unspecified; G89.29 Other chronic pain; Z96.612 Presence of left artificial shoulder joint; Z79.01 Long term (current) use of anticoagulants; Z88.1 Allergy status to other antibiotic agents; Z88.6 Allergy status to analgesic agent; Z79.85 Long-term (current) use of injectable non-insulin antidiabetic drugs; Z79.84 Long term (current) use of oral hypoglycemic drugs; Z79.1 Long term (current) use of non-steroidal anti-inflammatories (NSAID); Z79.51 Long term (current) use of inhaled steroids; Z85.828 Personal history of other malignant neoplasm of skin; Z87.891 Personal history of nicotine dependence; Z68.28 Body mass index [BMI] 28.0-28.9, adult
CPT/HCPCS: 0241U; 36415; 71260; 80048; 80053; 80069; 82947; 83690; 83735; 83880; 84145; 84484; 85025; 85027; 87070; 87205; 93005; 93010; 94640; 94664; 94760; 94761; 96361; 96365-59; 97162; 97530; 99285-25; A9270; J0696; J7030; J7040; J7050; Q9967

== ENCOUNTER → 2024-08-12 | Outpatient (CLI) | payer MEDICARE ==
[~2024-08-12] MED LIST changes: +ALBU8HFA2 INH; +CREON DR 36,001 EACH PO; +DOCU100 PO; +DULERA 200 MCG-13 GM INH; +GUAI600T33 PO; +OXYC10TA19 PO; +PANTOPRAZOLE SO40 M2 PO
[2024-08-13 10:13] LABS: BASOPHILS ABSOLUTE AUTO 0.02 K/mm3 (0.00-0.23); BASOPHILS PERCENT AUTO 1 % (0-2); EOSINOPHILS ABSOLUTE AUTO 0.01 K/mm3 (0.00-0.68); EOSINOPHILS PERCENT AUTO 0 % (0-6); Hematocrit 36.9 % (37.0-53.0); IMMATURE GRAN ABSOLUTE AUTO 0.02 K/mm3 (0.00-0.10); IMMATURE GRAN PERCENT AUTO 1 % (0-1); LYMPHOCYTES ABSOLUTE AUTO 0.61 K/mm3 (0.84-5.20); LYMPHOCYTES PERCENT AUTO 14 % (21-46); MONOCYTES ABSOLUTE AUTO 0.43 K/mm3 (0.16-1.47); MONOCYTES PERCENT AUTO 10 % (4-13); Mean Corpuscular HGB 33.2 pg (26.0-34.0); Mean Corpuscular HGB Conc 35.2 g/dL (31.5-36.5); Mean Corpuscular Volume 94 fL (80-100); Mean Platelet Volume 12.4 fL (9.1-12.4); NEUTROPHILS ABSOLUTE AUTO 3.17 K/mm3 (1.96-9.15); NEUTROPHILS PERCENT AUTO 74 % (41-73); Platelet Count 191 K/mm3 (150-400); RDW Coefficient Variation 15.8 % (11.7-14.2); RDW Standard Deviation 54.2 fL (35.1-46.3); Red Blood Cell Count 3.91 M/mm3 (4.30-5.90); White Blood Cell Count 4.26 K/mm3 (4.00-11.30)
[2024-08-13 10:38] LABS: Albumin, Blood 3.5 g/dL (3.4-5.0); Albumin/Globulin Ratio 1.1 (0.8-1.8); Bilirubin, Total 10.5 mg/dL (0.1-1.0); Creatinine, Blood 0.52 mg/dL (0.60-1.20); Globulin, Blood 3.3 g/dL (2.2-4.0); Potassium, Blood 3.9 mmol/L (3.5-5.5); Total Protein, Blood 6.8 g/dL (6.4-8.2)
== END ==
LOC: LAB SHORT 15:15 → LAB 15:15
PROVIDERS: Student in an Organized Health Care Education/Training Program
DX: R82.2 Biliuria (principal)
CPT/HCPCS: 80053; 85025

== ENCOUNTER 2024-08-13 13:24 | Inpatient (IN) | payer MEDICARE ==
[~2024-08-13] VITALS: Ht 190.5 cm; Wt 93.8 kg
[~2024-08-13 13:24] MED LIST changes: -DOCU100 PO; -LOSA25 PO
[2024-08-13 14:16] LABS: BASOPHILS ABSOLUTE AUTO 0.01 K/mm3 (0.00-0.23); BASOPHILS PERCENT AUTO 0 % (0-2); EOSINOPHILS ABSOLUTE AUTO 0.01 K/mm3 (0.00-0.68); EOSINOPHILS PERCENT AUTO 0 % (0-6); Hematocrit 35.8 % (37.0-53.0); Hemoglobin 12.7 g/dL (13.5-17.5); IMMATURE GRAN ABSOLUTE AUTO 0.01 K/mm3 (0.00-0.10); IMMATURE GRAN PERCENT AUTO 0 % (0-1); LYMPHOCYTES ABSOLUTE AUTO 0.49 K/mm3 (0.84-5.20); LYMPHOCYTES PERCENT AUTO 11 % (21-46); MONOCYTES ABSOLUTE AUTO 0.42 K/mm3 (0.16-1.47); MONOCYTES PERCENT AUTO 10 % (4-13); Mean Corpuscular HGB 33.1 pg (26.0-34.0); Mean Corpuscular HGB Conc 35.5 g/dL (31.5-36.5); Mean Corpuscular Volume 93 fL (80-100); Mean Platelet Volume 11.3 fL (9.1-12.4); NEUTROPHILS ABSOLUTE AUTO 3.43 K/mm3 (1.96-9.15); NEUTROPHILS PERCENT AUTO 79 % (41-73); Platelet Count 204 K/mm3 (150-400); RDW Coefficient Variation 16.1 % (11.7-14.2); Red Blood Cell Count 3.84 M/mm3 (4.30-5.90); White Blood Cell Count 4.37 K/mm3 (4.00-11.30)
[2024-08-13 14:41] LABS: Albumin, Blood 3.4 g/dL (3.4-5.0); Bilirubin, Total 13.1 mg/dL (0.1-1.0); Bun/Creatinine Ratio 30.2 (12.0-20.0); Calcium, Blood 9.2 mg/dL (8.5-10.1); Creatinine, Blood 0.53 mg/dL (0.60-1.20); Globulin, Blood 3.4 g/dL (2.2-4.0); Potassium, Blood 3.3 mmol/L (3.5-5.5); Total Protein, Blood 6.8 g/dL (6.4-8.2)
[2024-08-13 16:10] LABS: Source, Urine Clean Catch
[2024-08-13 16:19] LABS: Appearance, Urine Clear (Clear); Blood, Urine Neg (Neg); Color, Urine Amber (P-Yellow); Glucose Qualitative, Urine 4+ (Neg); Ketones, Urine Neg (Neg); Leukocyte Esterase, Urine 1+ (Neg); Nitrite, Urine Neg (Neg); Protein, Urine 1+ (Neg); Urobilinogen, Urine 1+ (Normal)
[2024-08-13 16:28] LABS: Bilirubin, Urine 2+ (Neg)
[2024-08-13 16:31] LABS: Bacteria Mod /hpf; Red Blood Cells, Urine 0-2 /hpf (0-2); Squamous Epithelial Cells Rare /hpf (Few)
[2024-08-14] VITALS (7 sets, daily range): BP systolic 97–111; BP diastolic 58–84
[2024-08-14] MEDS ORDERED: Potassium Chloride 20 MEQ TabCR PO ONE (01:00)
[2024-08-14] MEDS ORDERED: NS 1,000 ML IV SCH (02:00)
[2024-08-14] MEDS ORDERED: Ondansetron HCl 2 MG / ML 2ML Vial IV PRN (02:30)
--- NOTE | 2024-08-14 04:40 | NUR ---
SHIFT SUMMARY: PT AOX4 CALLS APPROPRIATELY ABLE TO MAKE NEEDS KNOWN. PT YELLOW WITH JAUNDICE AND COMPLAINS OF NAUSEA. MEDICATED PER EMR AND WAS ABLE TO GET SOME SLEEP AFTER. TOLERATING MEDICATIONS WELL, INSTRUCTED TO LET US KNOW WHEN HE NEEDS TO USE THE RESTROOM, BUT IS IND WITH THE URINAL AT BED SIDE. PT PLEASANT AND NO ACUTE EVENTS NOTED OVERNIGHT. PROSTHETIC AT BEDSIDE. PT IN BED SLEEPING, BED IN LOWEST POSITION, CALL LIGHT IN REACH. CONTIUNING CARE.
[2024-08-14 05:21] LABS: BASOPHILS ABSOLUTE AUTO 0.01 K/mm3 (0.00-0.23); BASOPHILS PERCENT AUTO 0 % (0-2); EOSINOPHILS ABSOLUTE AUTO 0.02 K/mm3 (0.00-0.68); EOSINOPHILS PERCENT AUTO 1 % (0-6); Hematocrit 31.8 % (37.0-53.0); Hemoglobin 11.7 g/dL (13.5-17.5); IMMATURE GRAN ABSOLUTE AUTO 0.01 K/mm3 (0.00-0.10); IMMATURE GRAN PERCENT AUTO 0 % (0-1); LYMPHOCYTES ABSOLUTE AUTO 0.52 K/mm3 (0.84-5.20); LYMPHOCYTES PERCENT AUTO 18 % (21-46); MONOCYTES ABSOLUTE AUTO 0.42 K/mm3 (0.16-1.47); MONOCYTES PERCENT AUTO 14 % (4-13); Mean Corpuscular HGB 34.1 pg (26.0-34.0); Mean Corpuscular HGB Conc 36.8 g/dL (31.5-36.5); Mean Corpuscular Volume 93 fL (80-100); Mean Platelet Volume 10.8 fL (9.1-12.4); NEUTROPHILS ABSOLUTE AUTO 1.94 K/mm3 (1.96-9.15); NEUTROPHILS PERCENT AUTO 67 % (41-73); Platelet Count 175 K/mm3 (150-400); RDW Coefficient Variation 16.4 % (11.7-14.2); RDW Standard Deviation 55.2 fL (35.1-46.3); Red Blood Cell Count 3.43 M/mm3 (4.30-5.90); White Blood Cell Count 2.92 K/mm3 (4.00-11.30)
[2024-08-14 05:45] LABS: Phosphorus, Blood 3.5 mg/dL (2.5-4.9)
[2024-08-14 05:53] LABS: Albumin, Blood 2.9 g/dL (3.4-5.0); Albumin/Globulin Ratio 0.9 (0.8-1.8); Bilirubin, Total 11.5 mg/dL (0.1-1.0); Bun/Creatinine Ratio 38.5 (12.0-20.0); Calcium, Blood 8.7 mg/dL (8.5-10.1); Creatinine, Blood 0.52 mg/dL (0.60-1.20); Globulin, Blood 3.2 g/dL (2.2-4.0); Potassium, Blood 3.6 mmol/L (3.5-5.5); Total Protein, Blood 6.1 g/dL (6.4-8.2)
--- NOTE | 2024-08-14 18:15 | NUR ---
SHIFT SUMMARY PATIENT ALERT AND INTERACTIVE. PATIENT JAUNDICE. PATIENT SCHEDULED WITH IR FOR BILLIARY DRAIN. PROCEDURE DELAYED. PER IR PATIENT CAN BE DISCHARGED AND SEEN OUTPATIENT. HOSPITALIST CALLED PATIENT TO REMAIN AND RE EVALUATE IN THE MORNING. PATIENT CONCERNED ABOUT GOING HOME AND GETTING SICKER BEFORE INTERVENTION.
[2024-08-14] MEDS ORDERED: Gabapentin 300 MG Cap PO SCH (21:00)
[2024-08-15] VITALS (9 sets, daily range): BP systolic 111–123; BP diastolic 79–92
[2024-08-15 06:42] LABS: Albumin, Blood 2.8 g/dL (3.4-5.0); Albumin/Globulin Ratio 0.9 (0.8-1.8); Bilirubin, Total 13.8 mg/dL (0.1-1.0); Bun/Creatinine Ratio 46.3 (12.0-20.0); Calcium, Blood 8.8 mg/dL (8.5-10.1); Creatinine, Blood 0.41 mg/dL (0.60-1.20); Globulin, Blood 3.2 g/dL (2.2-4.0); Potassium, Blood 3.4 mmol/L (3.5-5.5)
[2024-08-15] MEDS ORDERED: NS 250 ML IV ONE ×2 (16:55→18:20)
[2024-08-15] MEDS ORDERED: NS 500 ML IV ONE (17:00)
--- NOTE | 2024-08-15 17:12 | NUR ---
SHIFT SUMMARY AND TRANSFER TO HEART CENTER PATIENT ALERT AND INTERACTIVE. PATIENT ABLE TO GET UP TO BR WITH PROSTHETIC. PATIENT ABLE TO HAVE PROCEDURE TODAY. PATIENT TAKEN DOWN TO HEART CENTER VIA BED. FAMILY PRESENT WHEN PATIENT TAKEN TO CARDIOLOGIST. PATIENT CONTINUES TO BE JAUNDICE.
[2024-08-15] MEDS ORDERED: Midazolam HCl 1MG / ML 2ML Vial ONE ×2 (17:21→17:51)
[2024-08-15] MEDS ORDERED: FentaNYL Citrate 50 MCG/ML 2 ML Injection ONE ×5 (17:21→19:04)
[2024-08-15] MEDS ORDERED: Ondansetron HCl 2 MG / ML 2ML Vial ONE ×2 (18:03→18:14)
[2024-08-15] MEDS ORDERED: CeFAZolin Sodium 2,000 MG VIAL ONE (18:26)
[2024-08-15] MEDS ORDERED: NS 100 ML IV ONE (18:27)
[2024-08-15] MEDS ORDERED: FentaNYL Citrate 50 MCG/ML 2 ML Injection IV PRN (19:55)
--- NOTE | 2024-08-15 19:57 | NUR ---
PT RETURNED FROM ORACLE BUSINESS ANALYST FOR BILLARY DRAIN PLACEMENT AT 1934. DAUGHTER CALLED TO CHECK STATUS. RETURNED HER CALL AT 1954 TO UPDATE PT STATUS RETURNED TO ROOM. PT BEING MONITORED. PRIMARY NURSE CALLED HOSPITALIST. NEW ORDER FOR FENTANYL AND TELE.
--- NOTE | 2024-08-16 00:40 | NUR ---
RCVD CALL FROM NURSE AT [facility] REQUESTING UPDATE ON PATIENT--WHO IS WAITING FOR BED AND POSSIBLE TRANSFER TO [facility]. ADVISED PT HAD BILLARY DRAIN PLACED 08/15/24 IN THE AFTERNOON. UPDATED WITH CURRENT VITALS AND CONDITION OF PT. REPORTED ON COLOR AND AMOUNT OF FLUID FROM DAIR. PT IS STILL JAUNDICE. REQ NURSE TO ADVISE REASON FOR TRANSFER. PER NURSE, PT MAY NOT TRANSFER SINCE DRAIN WAS PLACED. TO REVIEW AND CONTANCT ATTENDING TOMORROW.
[2024-08-16 04:13] VITALS: BP 125/81
--- NOTE | 2024-08-16 05:31 | NUR ---
PT RECIEVED FROM TAX SENIOR ASSOCIATE WITH BILIARY DRAIN PLACED IN RLQ DRAINING BLOODY FLUID. PT IS JAUNDICE ABD SOFT AND DISTENDED A&OX3, PERRL, ORACLE PROGRAMMER ANALYST EQUAL X 4, HR BRADYCARDIA AT 49. DISCUSSED WITH HOSPITALIST TELE PLACED DURING THIS SHIFT TO CONTINUE TO MONITOR. PT REPORTS PAIN 10/10 AT DRAIN INCISION SITE AND HAS VOMITTING AND NAUSEA MEDICATION GIVEN RX. PT SLEEPING QUIETLY AFTER MEDICATIONS GIVEN. RR ARE EVEN AND UNLABORED, NO SOB NOTED.
[2024-08-16 06:58] LABS: Albumin/Globulin Ratio 0.9 (0.8-1.8); Bilirubin, Total 8.4 mg/dL (0.1-1.0); Bun/Creatinine Ratio 54.3 (12.0-20.0); Calcium, Blood 8.6 mg/dL (8.5-10.1); Creatinine, Blood 0.5 mg/dL (0.60-1.20); Globulin, Blood 3.4 g/dL (2.2-4.0); Potassium, Blood 3.2 mmol/L (3.5-5.5); Total Protein, Blood 6.4 g/dL (6.4-8.2)
[2024-08-16] MEDS ORDERED: Potassium Chloride 20 MEQ TabCR PO ONE (07:40)
[2024-08-16] MEDS ORDERED: OxyCODONE HCL 5 MG TAB PO PRN ×3 (07:40→14:40)
[2024-08-16 07:41] VITALS: BP 119/80
[2024-08-16] MEDS ORDERED: Albuterol HFA200 ACT/6.7 GM INH INH PRN (07:45)
[2024-08-16] MEDS ORDERED: Tiotropium Bromide 2.5 MCG/ACT MIST INHAL (10 ACT/4 GM) INH SCH (07:50)
[2024-08-16] MEDS ORDERED: Mometasone/Formoterol MDI 200/5 mcg 13 GM INH SCH (07:50)
[2024-08-16] MEDS ORDERED: Pantoprazole Sodium 40 MG Tab PO SCH (08:00)
[2024-08-16] MEDS ORDERED: Amylase/Lipase/Protease DR Cap 12,000 PO SCH (08:30)
[2024-08-16] MEDS ORDERED: Metoprolol Succinate 50 MG TABCR PO SCH (09:00)
[2024-08-16] MEDS ORDERED: Lactobacil 2-S.Thermo-Bifido 1 1 Cap PO SCH (09:00)
[2024-08-16] MEDS ORDERED: Dutasteride 0.5 MG Cap PO SCH (09:00)
[2024-08-16] MEDS ORDERED: Docusate Sodium 100 MG Cap PO SCH (09:00)
[2024-08-16] MEDS ORDERED: Cholestyramine/Aspartame 4 GM Packet PO SCH (09:00)
[2024-08-16] MEDS ORDERED: Empagliflozin 10 MG TAB PO SCH (09:00)
[2024-08-16 12:46] VITALS: BP 134/91
[2024-08-16 15:54] VITALS: BP 120/78
--- NOTE | 2024-08-16 16:18 | NUR ---
SHIFT SUMMARY PT IS A/OX4. SBA TO BATHROOM TO ASSIST WITH LINES MANAGEMENT. PT HAS LEFT BKA WITH PROSTHETIC. PT REPORTS BETTER PAIN MANAGEMENT THIS SHIFT, RECIEVING FENTANYL X1 AND OXYCODONE Q4 PER JUL. BILIARY DRAIN PATENT AND DRAINING DARK BROWN/YELLOW FLUID WITH LITTLE BLOOD. PT PLEASANT AND COOPERATIVE WITH CARE AND CALLS APPROPRIATELY USING THE CALL LIGHT.
[2024-08-16] MEDS ORDERED: Atorvastatin 10 MG Tab PO SCH (18:00)
[2024-08-16 19:22] VITALS: BP 116/78
[2024-08-16] MEDS ORDERED: Tamsulosin HCl 0.4 MG Cap PO SCH (21:00)
[2024-08-16] MEDS ORDERED: OLANZapine 5 MG Tab PO SCH (21:00)
[2024-08-16] MEDS ORDERED: Losartan Potassium 25 MG Tab PO SCH (21:00)
--- NOTE | 2024-08-17 05:37 | NUR ---
PT A&0X4 PT JAUNDICE, ABD MILD DISTENDED SOFT AND NONTENDER. DRAIN IN PLACE DRAINING BLOOD TINGED FLUID AT BEGINNING OF SHIFT . QUARTZ CUTTER ARE EQUAL, PERRL. PT C/O PAIN T/O SHIFT AND PAIN MEDICATION GIVEN RX APPROXIMATELY EVERY 4 HOURS. AT END OF SHIFT BILIARY DRAIN DRAINING DARK GREEN LIQUID. INCISION SITE DRESSING DRY, CLEAN AND INTACT.
[2024-08-17 05:38] LABS: Albumin, Blood 3.1 g/dL (3.4-5.0); Albumin/Globulin Ratio 0.8 (0.8-1.8); Bilirubin, Total 4.9 mg/dL (0.1-1.0); Bun/Creatinine Ratio 32.3 (12.0-20.0); Calcium, Blood 8.8 mg/dL (8.5-10.1); Creatinine, Blood 0.62 mg/dL (0.60-1.20); Globulin, Blood 3.7 g/dL (2.2-4.0); Potassium, Blood 3.5 mmol/L (3.5-5.5); Total Protein, Blood 6.8 g/dL (6.4-8.2)
[2024-08-17 07:16] VITALS: BP 81/57
[2024-08-17 07:59] VITALS: BP 93/62
[2024-08-17 08:26] VITALS: BP 94/62
[2024-08-17 11:29] VITALS: BP 100/71
[2024-08-17] MEDS ORDERED: DOCU100 PO (13:05)
[2024-08-17] MEDS ORDERED: LOSA25 PO (14:43)
--- NOTE | 2024-08-17 17:39 | NUR ---
PT DISCHARGED TO HOME WITH HOME HEALTH. ALL VALUABLES RETURNED AND SENT HOME WITH THE PT. DISCHARGE INSTRUCTIONS PROVIDED AND EDUCATED ON AT TIME OF DISCHARGE.
== END 2024-08-17 15:03 | disposition home health service (06) | DRG 445 ==
LOC: ER 13:24 → MEDS 13:25 → ERHOLD 13:25 → MEDS 08-14 01:02 → ENPENDDIS 08-17 13:27 → MEDS 08-17 15:03
PROVIDERS: Internal Medicine; Student in an Organized Health Care Education/Training Program; ADMIT Student in an Organized Health Care Education/Training Program
PROC: 0F9930Z Drainage of Common Bile Duct with Drainage Device, Percutaneous Approach (ICD-10-PCS; principal; 2024-08-15)
PROC: 0F9730Z Drainage of Common Hepatic Duct with Drainage Device, Percutaneous Approach (ICD-10-PCS; 2024-08-15)
PROC: BF5C2Z0 Other Imaging of Hepatobiliary System, All using Fluorescing Agent, Intraoperative (ICD-10-PCS; 2024-08-15)
DX: K83.1 Obstruction of bile duct (principal); C25.0 Malignant neoplasm of head of pancreas; E87.1 Hypo-osmolality and hyponatremia; Z96.612 Presence of left artificial shoulder joint; J44.9 Chronic obstructive pulmonary disease, unspecified; I48.91 Unspecified atrial fibrillation; I10 Essential (primary) hypertension; E78.5 Hyperlipidemia, unspecified; I07.1 Rheumatic tricuspid insufficiency; I27.20 Pulmonary hypertension, unspecified; G47.33 Obstructive sleep apnea (adult) (pediatric); F32.A Depression, unspecified; G89.29 Other chronic pain; E11.40 Type 2 diabetes mellitus with diabetic neuropathy, unspecified; N40.0 Benign prostatic hyperplasia without lower urinary tract symptoms; K21.9 Gastro-esophageal reflux disease without esophagitis; E87.6 Hypokalemia; D63.1 Anemia in chronic kidney disease; K43.2 Incisional hernia without obstruction or gangrene; Z88.1 Allergy status to other antibiotic agents; Z88.8 Allergy status to other drugs, medicaments and biological substances; Z79.84 Long term (current) use of oral hypoglycemic drugs; Z91.018 Allergy to other foods; Z79.899 Other long term (current) drug therapy; Z79.01 Long term (current) use of anticoagulants; Z79.891 Long term (current) use of opiate analgesic; Z79.51 Long term (current) use of inhaled steroids; Z90.49 Acquired absence of other specified parts of digestive tract; Z51.11 Encounter for antineoplastic chemotherapy; Z98.890 Other specified postprocedural states; Z98.42 Cataract extraction status, left eye; Z98.41 Cataract extraction status, right eye; Z87.718 Personal history of other specified (corrected) congenital malformations of genitourinary system; Z95.5 Presence of coronary angioplasty implant and graft; Z85.828 Personal history of other malignant neoplasm of skin; Z87.891 Personal history of nicotine dependence
CPT/HCPCS: 36415; 74177; 76937; 80053; 81001; 82947; 83036; 83690; 83735; 84100; 85025; 87086; 94640; 94664; 94760; 96374; 99152; 99153; 99285-25; A9270; C1729; C1769; C1887; C1894; G0378; J0690; J2250; J2405; J3010; J7030; J7040; J7050; Q9967

== ENCOUNTER 2024-09-09 08:38 | Inpatient (IN) | payer MEDICARE ==
[~2024-09-09] VITALS: Ht 190.5 cm; Wt 89.9 kg
[~2024-09-09 08:38] MED LIST changes: +DOCU100 PO; +LOSA25 PO
[2024-09-09] MEDS ORDERED: HYDROmorphone HCl/Pf 1MG SYR IV ONE ×3 (09:35→16:20)
[2024-09-09] MEDS ORDERED: Ondansetron HCl 2 MG / ML 2ML Vial IV ONE (09:35)
[2024-09-09 09:52] LABS: BASOPHILS ABSOLUTE AUTO 0.02 K/mm3 (0.00-0.23); BASOPHILS PERCENT AUTO 0 % (0-2); EOSINOPHILS ABSOLUTE AUTO 0.05 K/mm3 (0.00-0.68); EOSINOPHILS PERCENT AUTO 1 % (0-6); Hematocrit 34.4 % (37.0-53.0); Hemoglobin 11.7 g/dL (13.5-17.5); IMMATURE GRAN ABSOLUTE AUTO 0.02 K/mm3 (0.00-0.10); IMMATURE GRAN PERCENT AUTO 0 % (0-1); LYMPHOCYTES ABSOLUTE AUTO 0.73 K/mm3 (0.84-5.20); LYMPHOCYTES PERCENT AUTO 10 % (21-46); MONOCYTES ABSOLUTE AUTO 0.69 K/mm3 (0.16-1.47); MONOCYTES PERCENT AUTO 10 % (4-13); Mean Corpuscular HGB 32.5 pg (26.0-34.0); Mean Corpuscular Volume 96 fL (80-100); Mean Platelet Volume 10.2 fL (9.1-12.4); NEUTROPHILS ABSOLUTE AUTO 5.55 K/mm3 (1.96-9.15); NEUTROPHILS PERCENT AUTO 79 % (41-73); Platelet Count 285 K/mm3 (150-400); RDW Coefficient Variation 13.3 % (11.7-14.2); RDW Standard Deviation 47.4 fL (35.1-46.3); White Blood Cell Count 7.06 K/mm3 (4.00-11.30)
[2024-09-09 09:59] LABS: International Normalized Ratio 1.17; Prothrombin Time Results 12.4 Sec (9.7-11.5)
[2024-09-09 10:04] LABS: Albumin, Blood 2.5 g/dL (3.4-5.0); Albumin/Globulin Ratio 0.5 (0.8-1.8); Bun/Creatinine Ratio 21.3 (12.0-20.0); Calcium, Blood 8.7 mg/dL (8.5-10.1); Creatinine, Blood 0.52 mg/dL (0.60-1.20); Globulin, Blood 4.8 g/dL (2.2-4.0); Potassium, Blood 3.1 mmol/L (3.5-5.5); Total Protein, Blood 7.3 g/dL (6.4-8.2)
[2024-09-09] MEDS ORDERED: Piperacillin/Tazobactam Sod 3.375 GM in NS 100 ML IV ONE (11:10)
[2024-09-09] MEDS ORDERED: NS 1,000 ML IV SCH (11:10)
[2024-09-09] MEDS ORDERED: Vancomycin HCL 2,000 MG in NS 520 ML IV ONE (12:25)
[2024-09-09 12:55] LABS: Source, Urine Clean Catch
[2024-09-09 12:57] LABS: Appearance, Urine Clear (Clear); Bilirubin, Urine Neg (Neg); Blood, Urine Neg (Neg); Color, Urine Yellow (P-Yellow); Glucose Qualitative, Urine 4+ (Neg); Ketones, Urine Neg (Neg); Leukocyte Esterase, Urine Neg (Neg); Nitrite, Urine Neg (Neg); Protein, Urine 1+ (Neg); Urobilinogen, Urine NORM (Normal)
[2024-09-09] MEDS ORDERED: Potassium Chloride 20 MEQ TabCR PO ONE (13:40)
[2024-09-09] MEDS ORDERED: Polyethylene Glycol 3350 17 gm PO PRN (13:40)
[2024-09-09] MEDS ORDERED: Insulin Human Lispro 100 Units/ML 3ML Syringe SC SCH (16:30)
--- NOTE | 2024-09-09 17:15 | NUR ---
REPORT FROM CARLOTTA ENRIQUEZ
[2024-09-09 17:54] VITALS: BP 108/77
--- NOTE | 2024-09-09 18:41 | NUR ---
1740: PT ARRIVES TO UNIT VIA WC WITH ED STAFF. PT TO BED, C/O BILIARY DRAIN LEAKAGE. RN CHANGED MEPILEX DRESSING, PURULENT AND MALODOROUS; TEGADERM AND SPLIT DRAIN SPONGE PLACED, CDI. PT LEFT LEG PROSTHESIS AT BEDSIDE. PATIENT BELONGINGS ON BEDSIDE TABLE. PT BED LOW POSITION AND CALL LIGHT WITHIN REACH
[2024-09-09] MEDS ORDERED: HYDROmorphone HCl/Pf 1MG SYR IV PRN (19:05)
[2024-09-09] MEDS ORDERED: Prochlorperazine Edisylate 10 mg Vial IV PRN (19:05)
[2024-09-09 20:04] VITALS: BP 96/67
[2024-09-09] MEDS ORDERED: Nicotine 14 MG PATCH TOP SCH (20:10)
[2024-09-09] MEDS ORDERED: Lactobacil 2-S.Thermo-Bifido 1 1 Cap PO SCH (21:00)
[2024-09-09] MEDS ORDERED: Docusate Sodium/Senna 1 Tab PO SCH (21:00)
[2024-09-09 23:54] VITALS: BP 110/75
[2024-09-10] MEDS ORDERED: NS 250 ML IV PRN (00:55)
[2024-09-10] MEDS ORDERED: Vancomycin HCL 1,750 MG in NS 500 ML IV SCH (02:00)
[2024-09-10 04:02] VITALS: BP 121/84
--- NOTE | 2024-09-10 04:41 | NUR ---
SHIFT SUMMARY PATIENT IS AOX4, DRAIN TO RUQ, WITH BROWN THICK OUTPUT. DRESSING CHANGED THIS SHIFT. MEDICATED FOR PAIN PER EMAR. SBA TO BATHROOM. VOIDING EASILY. VSS, ABLE TO MAKE NEEDS KNOWN. IV ABX INFUSING. CALL LIGHT IN REACH.
[2024-09-10 05:02] LABS: BASOPHILS ABSOLUTE AUTO 0.01 K/mm3 (0.00-0.23); BASOPHILS PERCENT AUTO 0 % (0-2); EOSINOPHILS ABSOLUTE AUTO 0.04 K/mm3 (0.00-0.68); EOSINOPHILS PERCENT AUTO 1 % (0-6); Hematocrit 30.4 % (37.0-53.0); Hemoglobin 10.4 g/dL (13.5-17.5); IMMATURE GRAN ABSOLUTE AUTO 0.02 K/mm3 (0.00-0.10); IMMATURE GRAN PERCENT AUTO 0 % (0-1); LYMPHOCYTES ABSOLUTE AUTO 0.53 K/mm3 (0.84-5.20); LYMPHOCYTES PERCENT AUTO 9 % (21-46); MONOCYTES ABSOLUTE AUTO 0.62 K/mm3 (0.16-1.47); MONOCYTES PERCENT AUTO 11 % (4-13); Mean Corpuscular HGB 33.1 pg (26.0-34.0); Mean Corpuscular HGB Conc 34.2 g/dL (31.5-36.5); Mean Corpuscular Volume 97 fL (80-100); Mean Platelet Volume 10.1 fL (9.1-12.4); NEUTROPHILS ABSOLUTE AUTO 4.66 K/mm3 (1.96-9.15); NEUTROPHILS PERCENT AUTO 79 % (41-73); Platelet Count 261 K/mm3 (150-400); RDW Coefficient Variation 13.3 % (11.7-14.2); RDW Standard Deviation 47.5 fL (35.1-46.3); Red Blood Cell Count 3.14 M/mm3 (4.30-5.90); White Blood Cell Count 5.88 K/mm3 (4.00-11.30)
[2024-09-10 05:21] LABS: Bun/Creatinine Ratio 23.6 (12.0-20.0); Calcium, Blood 8.5 mg/dL (8.5-10.1); Creatinine, Blood 0.47 mg/dL (0.60-1.20); Potassium, Blood 3.4 mmol/L (3.5-5.5)
[2024-09-10 07:23] VITALS: BP 120/85
[2024-09-10] MEDS ORDERED: HYDROmorphone HCl/Pf 1MG SYR IV PRN (07:45)
[2024-09-10] MEDS ORDERED: Enoxaparin 40 MG/0.4 ML SYR SC SCH (09:00)
[2024-09-10] MEDS ORDERED: FentaNYL 25 MCG Patch TOP SCH (10:25)
[2024-09-10] MEDS ORDERED: OxyCODONE HCL 5 MG TAB PO PRN ×2 (10:25→14:25)
[2024-09-10] MEDS ORDERED: Albuterol HFA200 ACT/6.7 GM INH INH PRN (10:30)
[2024-09-10] MEDS ORDERED: Mometasone/Formoterol MDI 200/5 mcg 13 GM INH SCH (10:35)
[2024-09-10] MEDS ORDERED: Ondansetron 8 MG SoluTab SL PRN (10:45)
[2024-09-10] MEDS ORDERED: Amylase/Lipase/Protease DR Cap 12,000 PO SCH (12:30)
[2024-09-10 14:21] VITALS: BP 113/81
--- NOTE | 2024-09-10 17:34 | NUR ---
SHIFT SUMMARY PT ADMITTED ON 09/09/24 FOR WOUND INFECTION OF RIGHT BILIARY DRIAN SITE. DRESSING CHANGED TODAY 09/10/24. PT A&O X4. PT STATES PAIN TOLERABLE PER EMAR. 2L O2 VIA NASAL CANNULA O2 SAT 92%. BIOX IN PLACE. STANDBY ASSIST. PT TOLERATING DIET. DENIES N&V. PT MAKES NEEDS KNOWN. CALL LIGHT WITHIN REACH.
[2024-09-10] MEDS ORDERED: Rivaroxaban 10 MG Tab PO SCH (18:00)
[2024-09-10 19:16] VITALS: BP 114/70
[2024-09-10] MEDS ORDERED: Metoprolol Succinate 50 MG TABCR PO SCH (21:00)
[2024-09-10] MEDS ORDERED: Losartan Potassium 25 MG Tab PO SCH (21:00)
[2024-09-10] MEDS ORDERED: Tamsulosin HCl 0.4 MG Cap PO SCH (21:00)
[2024-09-10] MEDS ORDERED: OLANZapine 5 MG Tab PO SCH (21:00)
[2024-09-10] MEDS ORDERED: Docusate Sodium 100 MG Cap PO SCH (21:00)
[2024-09-10] MEDS ORDERED: Atorvastatin 10 MG Tab PO SCH (21:00)
[2024-09-10] MEDS ORDERED: Gabapentin 300 MG Cap PO SCH (21:00)
[2024-09-10 22:13] VITALS: BP 112/76
[2024-09-11 00:01] VITALS: BP 109/75
[2024-09-11 01:43] LABS: Vancomycin, Trough 13.6 ug/mL (5.0-10.0)
[2024-09-11 03:51] VITALS: BP 96/66
--- NOTE | 2024-09-11 05:13 | NUR ---
SHIFT SUMMARY NOC. PT ADMITTED FOR WOUND INFECTION OF RUQ BILIARY DRAIN THAT WAS PLACED ON 08/15/2024. DRESSING CHANGED THIS SHIFT, PURULENT DRAINAGE PRESENT. PT MEDICATED FOR PAIN WITH OXY 20MG Q4 HOURS PRN. PT VOIDING URINE AND TOLERATING PO INTAKE. PT ON 2L VIA N/C, CONTINUOUS BIOX IN PLACE, NO DESAT EVENTS THIS SHIFT. TELEMETRY INTACT, NO EVENTS REPORTED. PT MAKES NEEDS KNOWN, CALL LIGHT IN REACH.
[2024-09-11] MEDS ORDERED: Pantoprazole Sodium 40 MG Tab PO SCH (06:00)
[2024-09-11 07:03] VITALS: BP 95/63
[2024-09-11] MEDS ORDERED: Tiotropium Bromide 2.5 MCG/ACT MIST INHAL (10 ACT/4 GM) INH SCH (09:00)
[2024-09-11] MEDS ORDERED: Dutasteride 0.5 MG Cap PO SCH (09:00)
[2024-09-11] MEDS ORDERED: Cholestyramine/Aspartame 4 GM Packet PO SCH (09:00)
[2024-09-11] MEDS ORDERED: Amoxicillin/Clavulanate K 875 MG Tab PO SCH (10:25)
[2024-09-11 10:49] LABS: BASOPHILS ABSOLUTE AUTO 0.02 K/mm3 (0.00-0.23); BASOPHILS PERCENT AUTO 0 % (0-2); EOSINOPHILS ABSOLUTE AUTO 0.06 K/mm3 (0.00-0.68); EOSINOPHILS PERCENT AUTO 1 % (0-6); Hematocrit 30.9 % (37.0-53.0); Hemoglobin 10.4 g/dL (13.5-17.5); IMMATURE GRAN ABSOLUTE AUTO 0.02 K/mm3 (0.00-0.10); IMMATURE GRAN PERCENT AUTO 0 % (0-1); LYMPHOCYTES ABSOLUTE AUTO 0.58 K/mm3 (0.84-5.20); LYMPHOCYTES PERCENT AUTO 10 % (21-46); MONOCYTES ABSOLUTE AUTO 0.63 K/mm3 (0.16-1.47); MONOCYTES PERCENT AUTO 11 % (4-13); Mean Corpuscular HGB 32.5 pg (26.0-34.0); Mean Corpuscular HGB Conc 33.7 g/dL (31.5-36.5); Mean Corpuscular Volume 97 fL (80-100); Mean Platelet Volume 10.2 fL (9.1-12.4); NEUTROPHILS ABSOLUTE AUTO 4.33 K/mm3 (1.96-9.15); NEUTROPHILS PERCENT AUTO 77 % (41-73); Platelet Count 281 K/mm3 (150-400); RDW Coefficient Variation 13.2 % (11.7-14.2); RDW Standard Deviation 46.4 fL (35.1-46.3); White Blood Cell Count 5.64 K/mm3 (4.00-11.30)
[2024-09-11 11:23] LABS: Bun/Creatinine Ratio 25.5 (12.0-20.0); Calcium, Blood 8.5 mg/dL (8.5-10.1); Creatinine, Blood 0.51 mg/dL (0.60-1.20); Magnesium, Blood 1.9 mg/dL (1.6-2.4); Potassium, Blood 3.4 mmol/L (3.5-5.5)
--- NOTE | 2024-09-11 13:17 | NUR ---
pt's biliary drain pulled pt called staff to room, stating drain got caught on tele unit and pulled. drain only partially in, can see openings in drain tubing. placed call out to dr palacios. placed call to [facility] to send msg to dr rodriguez.
[2024-09-11] MEDS ORDERED: Potassium Chloride 10 Meq Tablet SA PO ONE (13:55)
--- NOTE | 2024-09-11 14:12 | NUR ---
dr rodriguez in to see pt. instructed this rn to cut sutures and remove drain completely. completed task and covered with gauze and tape per dr rodriguez's instruction. iv site red and tender. dc'd. called dr palacios and notified. pt resting in bed, call light in reach.
[2024-09-11 14:29] VITALS: BP 104/64
[2024-09-11] MEDS ORDERED: Potassium Chl 20MEQ/Water100ML 100 ML IV ONE (14:30)
--- NOTE | 2024-09-11 17:05 | NUR ---
SUMMARY THIS AFTERNOON, PT CALLED AND REPORTED BILIARY DRAIN GOT CAUGHT ON TELE AND PULLED. UPON ASSESSMENT, FOUND DRAIN WAS NEARLY PULLED COMPLETELY OUT. DR STRATTON AND DR VASQUEZ NOTIFIED. DR VASQUEZ CAME TO PT'S ROOM AND SUPERVISED REMOVAL OF DRAIN AND INSTRUCTED TO COVER DRAIN SITE WITH GAUZE AND TAPE. PT TO HAVE NEW DRAIN PLACED IN APPROXIMATELY [address] VASQUEZ'S PROGRESS NOTE. UPON ATTEMPTING TO FLUSH PT'S IV, FOUND TO BE RED AND TENDER. DC'D AND NOTIFIED DR STRATTON. NO NEED FOR IV ACCESS AT THIS TIME UNLESS PT BECOMES FEBRILE. PT RECEIVING PO ABX PER ORDERS. MEDICATED PT T/O DAY PER ORDERS FOR PAIN. CALL LIGHT IN REACH. PT PLEASANT AND COOPERATIVE.
--- NOTE | 2024-09-11 18:18 | NUR ---
transferring pt to room 362. report given to madeline blanco
[2024-09-11 18:40] VITALS: BP 110/73
--- NOTE | 2024-09-11 18:42 | NUR ---
PT TRANSFERRED WITH POSSESSIONS TO ROOM 362.
--- NOTE | 2024-09-11 18:44 | NUR ---
PT ARRIVED AT 1835, STAND BY ASSIST TO BED. PT ORIENTED TO ROOM. WILL PASS ON REPORT TO FOLLOWING RN
--- NOTE | 2024-09-12 03:16 | NUR ---
SHIFT SUMMARY NO ACUTE EVENTS DURING THIS SHIFT. BILIARY DRAIN SITE IS DRAINING RUST BROWN COLOR OUTPUT. DRESSING IS 4X4'S, CLEANED AND REDRESSED, ABD PAD APPLIED ON THE TOP. LINENS SOILED D/T OUTPUT AND SOAKED 4X4'S. SECURED WITH PAPER TAPE. MEDICATED WITH 20MG OXYCODONE ORDERED T/O THIS SHIFT. PT APPEARS TO BE IN GREAT PAIN, REPORTING RIGHT SIDE/ABD AND RIGHT LE. NO IV ACCESS FOR IV PAIN MEDICATIONS. PT IS A/O X4, ABLE TO MAKE HIS NEEDS KNOWN AND COOPERATIVE WITH CARE. PT HAS A PROSTHESIS AND LEFT BKA. PT IS INDEPENDENT W/I THE HOSPITAL ROOM. BED AT THE LOWEST POSITION, CALL LIGHT W/I REACH.
[2024-09-12 03:24] VITALS: BP 103/68
[2024-09-12 07:52] VITALS: BP 102/69
[2024-09-12 10:26] LABS: BASOPHILS ABSOLUTE AUTO 0.01 K/mm3 (0.00-0.23); BASOPHILS PERCENT AUTO 0 % (0-2); EOSINOPHILS ABSOLUTE AUTO 0.04 K/mm3 (0.00-0.68); EOSINOPHILS PERCENT AUTO 1 % (0-6); Hematocrit 31.3 % (37.0-53.0); Hemoglobin 10.5 g/dL (13.5-17.5); IMMATURE GRAN ABSOLUTE AUTO 0.01 K/mm3 (0.00-0.10); IMMATURE GRAN PERCENT AUTO 0 % (0-1); LYMPHOCYTES ABSOLUTE AUTO 0.56 K/mm3 (0.84-5.20); LYMPHOCYTES PERCENT AUTO 10 % (21-46); MONOCYTES PERCENT AUTO 11 % (4-13); Mean Corpuscular HGB 32.1 pg (26.0-34.0); Mean Corpuscular HGB Conc 33.5 g/dL (31.5-36.5); Mean Corpuscular Volume 96 fL (80-100); Mean Platelet Volume 10.2 fL (9.1-12.4); NEUTROPHILS ABSOLUTE AUTO 4.24 K/mm3 (1.96-9.15); NEUTROPHILS PERCENT AUTO 78 % (41-73); Platelet Count 260 K/mm3 (150-400); RDW Coefficient Variation 13.2 % (11.7-14.2); RDW Standard Deviation 46.2 fL (35.1-46.3); Red Blood Cell Count 3.27 M/mm3 (4.30-5.90); White Blood Cell Count 5.46 K/mm3 (4.00-11.30)
[2024-09-12 10:55] LABS: Albumin, Blood 2.2 g/dL (3.4-5.0); Albumin/Globulin Ratio 0.5 (0.8-1.8); Bilirubin, Total 0.7 mg/dL (0.1-1.0); Bun/Creatinine Ratio 27.9 (12.0-20.0); Calcium, Blood 8.7 mg/dL (8.5-10.1); Creatinine, Blood 0.61 mg/dL (0.60-1.20); Globulin, Blood 4.6 g/dL (2.2-4.0); Potassium, Blood 3.4 mmol/L (3.5-5.5); Total Protein, Blood 6.8 g/dL (6.4-8.2)
[2024-09-12] MEDS ORDERED: Potassium Chloride 10 Meq Tablet SA PO STA (11:48)
[2024-09-12] MEDS ORDERED: AMOCLA875 PO (12:33)
[2024-09-12] MEDS ORDERED: FENTANYL TOP (12:35)
[2024-09-12] MEDS ORDERED: VISBIOME 112.51 EACH PO (12:36)
[2024-09-12] MEDS ORDERED: OXAYDO5 M1 PO (12:37)
--- NOTE | 2024-09-12 15:02 | NUR ---
ASSUMED CARE OF PT. A/O X4 VERY PLEASENT PT, DEALING WITH PAIN TO RIGHT UPPER QUAD. DRESSING TO SITE CHANGED, DRAINAGE IS ODEROUS YELLOW BROWN.. PT IS IND IN ROOM, PROSTETIC TO LEFT BKA.
--- NOTE | 2024-09-12 15:10 | NUR ---
DISCHARGE ORDERS WRITTEN, AND EXPLAINED TO PT. SCRIPTS FAXED TO [employer]. PT STATED UNDERSTANDING
== END 2024-09-12 15:00 | disposition home health service (06) | DRG 863 ==
LOC: ER 08:38 → SURS 12:45 → MEDS 12:45 → SURS 17:03 → MEDS 09-11 18:35
PROVIDERS: Internal Medicine; Student in an Organized Health Care Education/Training Program; ADMIT Internal Medicine
DX: T81.41XA Infection following a procedure, superficial incisional surgical site, initial encounter (principal); L03.311 Cellulitis of abdominal wall; L03.313 Cellulitis of chest wall; E87.1 Hypo-osmolality and hyponatremia; C25.9 Malignant neoplasm of pancreas, unspecified; I48.91 Unspecified atrial fibrillation; E87.6 Hypokalemia; I10 Essential (primary) hypertension; G47.33 Obstructive sleep apnea (adult) (pediatric); N40.0 Benign prostatic hyperplasia without lower urinary tract symptoms; J44.9 Chronic obstructive pulmonary disease, unspecified; B96.1 Klebsiella pneumoniae [K. pneumoniae] as the cause of diseases classified elsewhere; K21.9 Gastro-esophageal reflux disease without esophagitis; E11.42 Type 2 diabetes mellitus with diabetic polyneuropathy; I27.20 Pulmonary hypertension, unspecified; G89.29 Other chronic pain; F32.A Depression, unspecified; E78.5 Hyperlipidemia, unspecified; Z96.612 Presence of left artificial shoulder joint; Z88.1 Allergy status to other antibiotic agents; Z88.8 Allergy status to other drugs, medicaments and biological substances; Z79.84 Long term (current) use of oral hypoglycemic drugs; Z79.85 Long-term (current) use of injectable non-insulin antidiabetic drugs; Z79.51 Long term (current) use of inhaled steroids; Z79.01 Long term (current) use of anticoagulants; Z85.828 Personal history of other malignant neoplasm of skin; Z87.891 Personal history of nicotine dependence; Z86.14 Personal history of Methicillin resistant Staphylococcus aureus infection
CPT/HCPCS: 36415; 74177; 80048; 80053; 80202; 82947; 83605; 83690; 83735; 85025; 85610; 86850; 86900; 86901; 87070; 87077; 87186; 87205; 94640; 94664; 94760; 94762; 96365-59; 96375; 96376; 99284-25; A9270; J0780; J1171; J1650; J2405; J2543; J3370; J7030; J7040; J7050; Q9967

== ENCOUNTER 2024-11-18 10:53 | Emergency (ER) | payer MEDICARE ==
[~2024-11-18] VITALS: Ht 190.5 cm; Wt 85.7 kg
[~2024-11-18 10:53] MED LIST changes: +AMOCLA875 PO; +CIPR500 PO; +DOCUZEN 8.6-501 EACH PO; +FENTANYL TOP; +MIDO5 PO; +OXAYDO5 M1 PO
[2024-11-18 14:13] LABS: Magnesium, Blood 1.7 mg/dL (1.6-2.4); Potassium, Blood 2.6 mmol/L (3.5-5.5)
[2024-11-18 17:13] LABS: Alanine Aminotransfer (ALT/SGP 21.0 U/L (12-78); Albumin, Blood 2.5 g/dL (3.4-5.0); Albumin/Globulin Ratio 0.7 (0.8-1.8); Aspartate Aminotrans (AST/SGOT 19.0 U/L (12-37); Bilirubin, Direct 0.2 mg/dL (0.0-0.3); Bilirubin, Indirect 0.2 mg/dL (0.1-0.7); Bilirubin, Total 0.4 mg/dL (0.1-1.0); Globulin, Blood 3.7 g/dL (2.2-4.0); Total Protein, Blood 6.2 g/dL (6.4-8.2)
[2024-11-18 19:49] LABS: BASOPHILS ABSOLUTE AUTO 0.02 K/mm3 (0.00-0.23); BASOPHILS PERCENT AUTO 0 % (0-2); EOSINOPHILS ABSOLUTE AUTO 0.02 K/mm3 (0.00-0.68); EOSINOPHILS PERCENT AUTO 0 % (0-6); Hematocrit 29.2 % (37.0-53.0); Hemoglobin 9.9 g/dL (13.5-17.5); IMMATURE GRAN ABSOLUTE AUTO 0.12 K/mm3 (0.00-0.10); IMMATURE GRAN PERCENT AUTO 1 % (0-1); LYMPHOCYTES ABSOLUTE AUTO 0.53 K/mm3 (0.84-5.20); LYMPHOCYTES PERCENT AUTO 3 % (21-46); MONOCYTES ABSOLUTE AUTO 1.23 K/mm3 (0.16-1.47); MONOCYTES PERCENT AUTO 7 % (4-13); Mean Corpuscular HGB Conc 33.9 g/dL (31.5-36.5); Mean Corpuscular Volume 96 fL (80-100); NEUTROPHILS ABSOLUTE AUTO 14.89 K/mm3 (1.96-9.15); NEUTROPHILS PERCENT AUTO 89 % (41-73); NRBC ABSOLUTE 0.00 K/mm3 (0.00-0.02); NRBC Auto 0.0 /100 WBC (0.0-0.2); Platelet Count 306 K/mm3 (150-400); RDW Coefficient Variation 18.7 % (11.7-14.2); RDW Standard Deviation 65.7 fL (35.1-46.3)
[2024-11-18 22:30] VITALS: BP 101/71
== END 2024-11-18 22:56 | disposition home or self-care (01) ==
LOC: ER 10:53
PROVIDERS: Student in an Organized Health Care Education/Training Program
DX: E87.6 Hypokalemia (principal); C25.9 Malignant neoplasm of pancreas, unspecified; J44.9 Chronic obstructive pulmonary disease, unspecified; E11.40 Type 2 diabetes mellitus with diabetic neuropathy, unspecified; I48.91 Unspecified atrial fibrillation; I10 Essential (primary) hypertension; E78.5 Hyperlipidemia, unspecified; G47.33 Obstructive sleep apnea (adult) (pediatric); K21.9 Gastro-esophageal reflux disease without esophagitis; N40.0 Benign prostatic hyperplasia without lower urinary tract symptoms; Z87.891 Personal history of nicotine dependence; Z91.018 Allergy to other foods; Z88.1 Allergy status to other antibiotic agents; Z88.8 Allergy status to other drugs, medicaments and biological substances; Z88.6 Allergy status to analgesic agent; Z79.01 Long term (current) use of anticoagulants; Z79.84 Long term (current) use of oral hypoglycemic drugs; Z79.51 Long term (current) use of inhaled steroids; Z79.60 Long term (current) use of unspecified immunomodulators and immunosuppressants; Z79.899 Other long term (current) drug therapy
CPT/HCPCS: 36415; 80048; 80076; 82330; 83735; 84132; 85025; 93005; 93010; 96365; 96366; 99285-25; A9270; J3480; J7050

== ENCOUNTER 2024-12-05 08:57 | Inpatient (IN) | payer MEDICARE ==
[~2024-12-05] VITALS: Ht 190.5 cm; Wt 86.1 kg
[2024-12-05] MEDS ORDERED: FentaNYL Citrate 50 MCG/ML 2 ML Injection IV ONE (09:30)
[2024-12-05] MEDS ORDERED: Ondansetron HCl 2 MG / ML 2ML Vial IV ONE (09:30)
[2024-12-05] MEDS ORDERED: NS 1,000 ML IV SCH ×2 (09:30→16:45)
[2024-12-05 09:37] LABS: BASOPHILS ABSOLUTE AUTO 0.03 K/mm3 (0.00-0.23); BASOPHILS PERCENT AUTO 0 % (0-2); EOSINOPHILS ABSOLUTE AUTO 0.07 K/mm3 (0.00-0.68); EOSINOPHILS PERCENT AUTO 0 % (0-6); Hematocrit 28.0 % (37.0-53.0); Hemoglobin 9.2 g/dL (13.5-17.5); IMMATURE GRAN ABSOLUTE AUTO 0.26 K/mm3 (0.00-0.10); IMMATURE GRAN PERCENT AUTO 2 % (0-1); LYMPHOCYTES ABSOLUTE AUTO 0.67 K/mm3 (0.84-5.20); LYMPHOCYTES PERCENT AUTO 4 % (21-46); MONOCYTES ABSOLUTE AUTO 1.09 K/mm3 (0.16-1.47); MONOCYTES PERCENT AUTO 6 % (4-13); Mean Corpuscular HGB Conc 32.9 g/dL (31.5-36.5); Mean Corpuscular Volume 97 fL (80-100); NEUTROPHILS ABSOLUTE AUTO 14.96 K/mm3 (1.96-9.15); NEUTROPHILS PERCENT AUTO 88 % (41-73); NRBC ABSOLUTE 0.00 K/mm3 (0.00-0.02); NRBC Auto 0.0 /100 WBC (0.0-0.2); Platelet Count 103 K/mm3 (150-400); RDW Coefficient Variation 19.1 % (11.7-14.2); RDW Standard Deviation 65.6 fL (35.1-46.3)
[2024-12-05 09:50] LABS: Prothrombin Time Results 12.8 Sec (9.7-11.5)
[2024-12-05] MEDS ORDERED: HYDROmorphone HCl/Pf 1MG SYR IV ONE ×4 (09:55→14:15)
[2024-12-05 09:57] LABS: Alanine Aminotransfer (ALT/SGP 115.0 U/L (12-78); Albumin, Blood 2.1 g/dL (3.4-5.0); Albumin/Globulin Ratio 0.5 (0.8-1.8); Anion Gap 8.0 mmol/L (3-11); Aspartate Aminotrans (AST/SGOT 261.0 U/L (12-37); Bilirubin, Total 0.8 mg/dL (0.1-1.0); Blood Urea Nitrogen 10.0 mg/dL (8-24); CO2, Blood 25.0 mmol/L (21-32); Calcium, Blood 8.1 mg/dL (8.5-10.1); Chloride, Blood 109.0 mmol/L (98-108); Creatinine, Blood 0.44 mg/dL (0.60-1.20); Globulin, Blood 4.0 g/dL (2.2-4.0); Glucose, Blood 158.0 mg/dL (70-99); Magnesium, Blood 1.8 mg/dL (1.6-2.4); Potassium, Blood 3.4 mmol/L (3.5-5.5); Sodium, Blood 139.0 mmol/L (136-145); Total Protein, Blood 6.1 g/dL (6.4-8.2)
[2024-12-05] MEDS ORDERED: Piperacillin/Tazobactam Sod 4.5 GM in NS 100 ML IV ONE (11:35)
[2024-12-05 13:45] LABS: Hematocrit 25.0 % (37.0-53.0); Hemoglobin 8.4 g/dL (13.5-17.5)
[2024-12-05 14:09] LABS: Source, Urine Clean Catch
[2024-12-05 14:49] LABS: Bilirubin, Urine Neg (Neg); Color, Urine Yellow (P-Yellow); Glucose Qualitative, Urine 4+ (Neg); Ketones, Urine Neg (Neg); Leukocyte Esterase, Urine Neg (Neg); Protein, Urine Neg (Neg); Specific Gravity, Urine 1.010 (1.003-1.022); Urobilinogen, Urine NORM (Normal)
[2024-12-05] MEDS ORDERED: HYDROmorphone HCl/Pf 1MG SYR IV PRN (15:55)
[2024-12-05] MEDS ORDERED: Vancomycin (Pharmacy Consult) IV SCH (15:55)
[2024-12-05] MEDS ORDERED: Ondansetron HCl 2 MG / ML 2ML Vial IV PRN (15:55)
[2024-12-05] MEDS ORDERED: Naloxone HCl 0.4MG / ML 1ML Vial IV PRN (15:55)
[2024-12-05] MEDS ORDERED: Albuterol 2.5 MG/3 ML VIAL INH PRN (16:05)
[2024-12-05] MEDS ORDERED: Insulin Regular 100 UNIT/ML 10ML Vial SC SCH (16:30)
[2024-12-05] MEDS ORDERED: Formoterol/Mometasone MDI 5/200 mcg 13 GM INH SCH (16:40)
[2024-12-05] MEDS ORDERED: Amylase/Lipase/Protease DR Cap 12,000 PO SCH (17:30)
[2024-12-05] MEDS ORDERED: Piperacillin/Tazobactam Sod 4.5 GM in NS 100 ML IV SCH (18:00)
[2024-12-05 18:10] LABS: Hematocrit 26.5 % (37.0-53.0); Hemoglobin 8.5 g/dL (13.5-17.5)
[2024-12-05 19:34] VITALS: BP 110/70
--- NOTE | 2024-12-05 19:45 | NUR ---
ARRIVAL TO SURGICAL UNIT ROOM 215 FROM ER AT 192. PT ARRIVED VIA GURNEY AND TRANSFERED VIA SLIDER SHEET. PT ORIENTED TO ROOM AND CALL LIGHT WELL UNIT POLICIES. PT A/O X4 BUT VERY PAINFUL IN ABDOMEN. PT'S ABDOMEN VISIBLY DRAINING BRIGHT RED BLOOD FROM BILIARY DRAIN DRESSING, DARK RED BLOOD IN DRAINAGE BAG. PT HAS HIS PROSTHETIC WITH HIM FOR HIS LLE.
[2024-12-05 20:38] VITALS: BP 110/76
[2024-12-05] MEDS ORDERED: Lactobacil 2-S.Thermo-Bifido 1 1 Cap PO SCH ×2 (21:00)
--- NOTE | 2024-12-05 21:03 | NUR ---
CALL TO HOSPITALIST. PT HAD EPISODE OF DARK RED EMESIS AND INCREASED BLEEDING FROM DRAIN ON ANTERIOR ABDOMEN. VSS ASIDE FROM TACHY WITH PVCS, PT ON TELEMETRY. CONT BIOX IN PLACE. NEW ORDERS RECEIVED TO CHECK H&H AT 2200 AND BASIC WOUND CARE ORDERS TO CHANGE DRAIN DRESSING ON ABDOMEN.
[2024-12-05 22:13] LABS: Hematocrit 25.4 % (37.0-53.0); Hemoglobin 8.4 g/dL (13.5-17.5)
[2024-12-05] MEDS ORDERED: NS 250 ML IV PRN (23:55)
[2024-12-06] VITALS (24 sets, daily range): BP systolic 109–131; BP diastolic 70–90
--- NOTE | 2024-12-06 01:27 | NUR ---
CALL TO HOSPITALIST. PT HAD TWO RUNS OF SVT ONE OF 12 SECOND RUN AND ONE 23 SECOND RUN. PT HAD AN EPISODE OF DRY HEAVING WELL AROUND THIS TIME. PT ON TELEMETRY AND BACK TO R AT 82 WITH PVC'S AFTER SVT. PT REPORTED NEW ONSET CHEST PAIN EPISODE. EKG OBTAINED. CHEST PAIN SYMPTOMS REPORTED TO BE IMPROVED. NEW ORDERS RECEIVED FOR ROUTINE CMP AND MAGNESIUM LEVELS AND EKG PRN. NO OTHER NEW ORDERS AT THIS TIME.
--- NOTE | 2024-12-06 04:54 | NUR ---
CALL FROM TELEMETRY. PER DEB MENDEZ TRANSFORMATION ANALYST, PT HAD AN EPISODE OF TACHYCARDIA UP TO 130 BPM FOR 4 SECONDS AND RETURNED TO NSR AT 90BPM AT 0451. THIS RN IMMEDIATELY CHECKED ON PATIENT. PT DENIES SOB, CHEST PAIN OR PRESSURE AT THIS TIME.
[2024-12-06 04:57] LABS: BASOPHILS ABSOLUTE AUTO 0.05 K/mm3 (0.00-0.23); BASOPHILS PERCENT AUTO 0 % (0-2); EOSINOPHILS ABSOLUTE AUTO 0.00 K/mm3 (0.00-0.68); EOSINOPHILS PERCENT AUTO 0 % (0-6); Hematocrit 24.3 % (37.0-53.0); Hemoglobin 8.0 g/dL (13.5-17.5); IMMATURE GRAN ABSOLUTE AUTO 0.69 K/mm3 (0.00-0.10); IMMATURE GRAN PERCENT AUTO 2 % (0-1); LYMPHOCYTES ABSOLUTE AUTO 0.49 K/mm3 (0.84-5.20); LYMPHOCYTES PERCENT AUTO 2 % (21-46); MONOCYTES ABSOLUTE AUTO 1.17 K/mm3 (0.16-1.47); MONOCYTES PERCENT AUTO 4 % (4-13); Mean Corpuscular HGB Conc 32.9 g/dL (31.5-36.5); Mean Corpuscular Volume 97 fL (80-100); NEUTROPHILS ABSOLUTE AUTO 27.97 K/mm3 (1.96-9.15); NEUTROPHILS PERCENT AUTO 92 % (41-73); NRBC ABSOLUTE 0.00 K/mm3 (0.00-0.02); NRBC Auto 0.0 /100 WBC (0.0-0.2); Platelet Count 128 K/mm3 (150-400); RDW Coefficient Variation 19.0 % (11.7-14.2); RDW Standard Deviation 63.8 fL (35.1-46.3)
[2024-12-06 05:28] LABS: Alanine Aminotransfer (ALT/SGP 135.0 U/L (12-78); Albumin, Blood 1.9 g/dL (3.4-5.0); Albumin/Globulin Ratio 0.6 (0.8-1.8); Anion Gap 7.0 mmol/L (3-11); Aspartate Aminotrans (AST/SGOT 156.0 U/L (12-37); Bilirubin, Total 5.0 mg/dL (0.1-1.0); Blood Urea Nitrogen 14.0 mg/dL (8-24); CO2, Blood 26.0 mmol/L (21-32); Calcium, Blood 7.7 mg/dL (8.5-10.1); Chloride, Blood 108.0 mmol/L (98-108); Creatinine, Blood 0.43 mg/dL (0.60-1.20); Globulin, Blood 3.4 g/dL (2.2-4.0); Glucose, Blood 140.0 mg/dL (70-99); Magnesium, Blood 1.8 mg/dL (1.6-2.4); Potassium, Blood 3.9 mmol/L (3.5-5.5); Sodium, Blood 137.0 mmol/L (136-145); Total Protein, Blood 5.3 g/dL (6.4-8.2)
--- NOTE | 2024-12-06 05:35 | NUR ---
SHIFT SUMMARY NOC. PT ADMIT FOR PERIANAL ABSCESS. PT A/O X4, CALLS APPROPRIATELY AND MAKES NEEDS KNOWN. VITALS STABLE ASIDE FROM INTERMITTENT TACHYCARDIA AND SVT EVENT, PLEASE SEE PREV NOTES. PT HAS BEEN NPO SINCE 0000 FOR PLANNED PROCEDURE. GLUCOSE STABLE ON AM LABS. PT HAS BLANCHABLE REDNESS ON COCCYX ON ADMIT, MEPELEX PLACED AT START OF SHIFT. PT VERY PAINFUL IN ABDOMEN, PT MEDICATED WITH IV DILAUDID, ORAL OXYCODONE AND HAS 2 FENT PATCHES ON HIS ANTERIOR CHEST. PT VOIDING CHHAYA COLORED URINE AND INDEPENDENT WITH URINAL. PT HAD X1 EPISODE OF BLOODY RED EMESIS, SEE PREV NOTE.
[2024-12-06] MEDS ORDERED: Insulin Regular 100 UNIT/ML 10ML Vial SC SCH (06:00)
[2024-12-06] MEDS ORDERED: Metoclopramide HCl 5MG / ML 2ML Vial IV PRN (06:20)
--- NOTE | 2024-12-06 06:28 | NUR ---
CALL TO HOSPITALIST. PT EXPERIENCING DRY HEAVES AND REQUESTS NAUSEA MEDICATION. PT ALSO TACH UP TO 150 BPM WITH DRY HEAVES BUT RETURNS TO 100S. TOO SOON FOR ZOFRAN ORDERED FOR Q6 HOURS. NEW ORDER RECEIVED FOR REGLAN 10MG Q 6 PRN. WHILE ENTERING MEDICATION ORDER, OVERRIDE BLOCK NOTIFICATION FOR INTERACTION WITH OLANZAPINE CAME UP. CALL PLACED TO PHARMACIST REID. DISCUSSED OVERRIDE BLOCK WITH REGLAN AND OLANZAPINE, MEDICATIONS TOGETHER CAN INCREASE EXTRAPYRAMIDAL SYMPTOMS. WILL CALL DOCTOR TO CLARIFY FOR NEW MED FOR NAUSEA OR OVERRIDE APPROVAL. CALL PLACED TO HOSPITALIST. DISCUSSED ABOVE WITH DR. FOUNTAIN, OVERRIDE APPROVED FOR REGLAN ORDER.
[2024-12-06] MEDS ORDERED: Tranexamic Acid 100 ML IV ONE (08:50)
[2024-12-06] MEDS ORDERED: NS 500 ML IV SCH (11:05)
[2024-12-06] MEDS ORDERED: Heparin Sodium 1000 Units/ML 10ML MDV ONE (11:14)
[2024-12-06] MEDS ORDERED: NS 1,000 ML IV ONE ×3 (11:14→14:04)
[2024-12-06] MEDS ORDERED: Nitroglycerin 2 MG/20 ML BTL ONE (11:14)
[2024-12-06] MEDS ORDERED: NS 500 ML IV ONE (11:14)
--- NOTE | 2024-12-06 11:19 | NUR ---
UPDATE PATIENT WANTED TO BE TURNED ON SIDE HAVING SEVERE STOMACH PAIN. PATIENT MEDICATED PER EMAR. WITH IN A FEW MINUTES PATIEN CALLED BACK TO ROOM FOR VOMITTING DARK COFFEE GROUND EMESIS. DR. YOUNG NOTIFIED ORDERS FOR BLOOD, H&H, AND TRANSFER TO ICU PLACED. PATIENT HR SINUS TACHY IN THE 150 PER [employer] PURCHASE AND SALE CLERK. AWAITING BED AVAILABLE FROM ICU AT THIS TIME.
[2024-12-06] MEDS ORDERED: NS 100 ML IV ONE (11:31)
[2024-12-06 11:38] LABS: Hematocrit 20.3 % (37.0-53.0); Hemoglobin 6.7 g/dL (13.5-17.5)
--- NOTE | 2024-12-06 12:12 | NUR ---
BLOOD VERIFIED BUT PASSED OFF TO HEART CENTER BEFORE STARTED.
[2024-12-06] MEDS ORDERED: Phenylephrine HCl 100 MCG/ML-NS 10MLSYR (1MG/10ML) ONE (12:19)
--- NOTE | 2024-12-06 12:23 | NUR ---
UPDATE- PATIENT TO HOTEL LOBBY CONCIERGE, BLOOD WAS VERIFIED AND SPIKED SENT BLOOD WITH RN TO HOTEL LOBBY CONCIERGE. ALL BELONGINGS TO ICE 14 AND RN REPORT GIVEN. THIS RN CALLED AND NOTIFIED SPOUSE OF TRANSFER.
--- NOTE | 2024-12-06 12:27 | NUR ---
MESSAGE LEFT FOR SPOUSE
[2024-12-06] MEDS ORDERED: Midazolam HCl 1MG / ML 2ML Vial ONE ×2 (12:29→13:22)
[2024-12-06] MEDS ORDERED: FentaNYL Citrate 50 MCG/ML 2 ML Injection ONE ×2 (12:29→13:22)
[2024-12-06 13:22] LABS: Platelet Count 130 K/mm3 (150-400)
[2024-12-06 13:38] LABS: Fibrinogen 372.0 mg/dL (170-430); Prothrombin Time Results 14.1 Sec (9.7-11.5)
[2024-12-06] MEDS ORDERED: Metoprolol Tartrate 1 MG/ML 5 ML VIAL IV PRN (15:25)
[2024-12-06 15:30] LABS: Platelet Function Col/Epi 81 sec (75-165)
[2024-12-06] MEDS ORDERED: Pantoprazole Sodium 40 MG Injection IV SCH (15:30)
[2024-12-06] MEDS ORDERED: HYDROmorphone HCl/Pf 1MG SYR IV PRN (15:44)
[2024-12-06 16:48] LABS: Vancomycin, Trough 15.5 ug/mL (5.0-10.0)
--- NOTE | 2024-12-06 17:02 | NUR ---
ASSUMPTION OF CARE PT ARRIVED TO ROOM FROM MODEL MAKER APPRENTICE AT 1440. PT AWAKE AND A/OX4 FOR HANDOFF OF OFFGOING RN. SCLERA YELLOW IN COLOR. NSR W/ OCCASIONAL CONVERSION TO AFIB, SELF LIMITING AND RETURNS TO NSR WITHIN 5 MINUTES. LUNG SOUNDS CLEAR AND DIM IN LOWER LOBES, SATURATING >95% ON RA. ABD FIRM AND TENDER TO PALPATION, BOWEL SOUNDS HYPOACTIVE. BILIARY DRAIN PRESENT IN LUQ. DRESSING REPLACED AND IS NOW C/D/I. SKIN JAUNDICED. L BKA PRESENT. PER HANNAH AT BEDSIDE, PT TO BE NPO INCLUDING MEDS, TO PREVENT FURTHER EMESIS EPISODES. VERBAL ORDER FOR PPI, BETA SAMY, AND IV ANALGESIC PLACED. SECOND UNIT OF PRBC HUNG AND DOCUMENTED.
--- NOTE | 2024-12-06 18:34 | NUR ---
SHIFT SUMMARY ASSESSMENT UNCHANGED FROM CARE ASSUMPTION NOTE. TR BAND PRESENT ON ARRIVAL, PLACED AT 1430. ACT NOT COLLECTED, BALLOON DEFLATION BEGAN AT 1630. BAND REMOVED W/O ISSUE, GAUZE AND TRANSPARENT PLACED AT INSERTION SITE. PT REPORTS GOOD PAIN CONTROL W/ IV ANALGESIC.
[2024-12-06 20:27] LABS: Hematocrit 23.0 % (37.0-53.0); Hemoglobin 7.8 g/dL (13.5-17.5)
--- NOTE | 2024-12-06 22:20 | NUR ---
TACHYCARDIA NONSUSTAINED TACHY ARRYTHMIA WITH HR IN 170'S AT APPROX. 2155 RESOLVING SPONTANEOUSLY TO NSR 80'S , WENT PROMPTLY TO BEDSIDE TO ASSESS PT. AOX4. DENIES PAIN, PALPITATIONS,SOB,OR DIAPHORESIS. NO VISIBLE SIGNS OF DISTRESS UPON THIS NURSE'S ASSESSMENT. PATIENT APPEARS COMFORTABLE. VSS. BILIARY DRAIN PATENT WITH SMALL AMT OF SANG. DRAINAGE. NO CHANGES FROM PREVIOUS GI ASSMT. NO OVER SIGNS OF BLEEDING. PT EDUCATED ON SIGNS AND SYMPTOMS OF ARRHYTHMIA'S. VERBALIZED UNDERSTANDING. REINFORCED CALL LIGHT USE. CALL LIGHT AND PERSONAL ITEMS IN REACH, BED LOW AND LOCKED. WILL CONTINUE TO MONITOR CLOSELY WITH FREQUENT ROUNDING.
[2024-12-07] VITALS (65 sets, daily range): BP systolic 95–125; BP diastolic 60–83
[2024-12-07] MEDS ORDERED: Piperacillin/Tazobactam Sod 4.5 GM in NS 100 ML IV SCH
[2024-12-07 03:17] LABS: BASOPHILS ABSOLUTE AUTO 0.04 K/mm3 (0.00-0.23); BASOPHILS PERCENT AUTO 0 % (0-2); EOSINOPHILS ABSOLUTE AUTO 0.01 K/mm3 (0.00-0.68); EOSINOPHILS PERCENT AUTO 0 % (0-6); Hematocrit 21.4 % (37.0-53.0); Hemoglobin 7.3 g/dL (13.5-17.5); IMMATURE GRAN ABSOLUTE AUTO 0.33 K/mm3 (0.00-0.10); IMMATURE GRAN PERCENT AUTO 2 % (0-1); LYMPHOCYTES ABSOLUTE AUTO 0.58 K/mm3 (0.84-5.20); LYMPHOCYTES PERCENT AUTO 3 % (21-46); MONOCYTES ABSOLUTE AUTO 1.46 K/mm3 (0.16-1.47); MONOCYTES PERCENT AUTO 8 % (4-13); Mean Corpuscular HGB Conc 34.1 g/dL (31.5-36.5); Mean Corpuscular Volume 94 fL (80-100); NEUTROPHILS ABSOLUTE AUTO 16.78 K/mm3 (1.96-9.15); NEUTROPHILS PERCENT AUTO 87 % (41-73); NRBC ABSOLUTE 0.02 K/mm3 (0.00-0.02); NRBC Auto 0.1 /100 WBC (0.0-0.2); Platelet Count 157 K/mm3 (150-400); RDW Coefficient Variation 18.2 % (11.7-14.2); RDW Standard Deviation 56.7 fL (35.1-46.3)
[2024-12-07 03:35] LABS: Anion Gap 4.0 mmol/L (3-11); Blood Urea Nitrogen 22.0 mg/dL (8-24); CO2, Blood 29.0 mmol/L (21-32); Calcium, Blood 7.8 mg/dL (8.5-10.1); Chloride, Blood 108.0 mmol/L (98-108); Creatinine, Blood 0.44 mg/dL (0.60-1.20); Glucose, Blood 119.0 mg/dL (70-99); Potassium, Blood 4.2 mmol/L (3.5-5.5); Sodium, Blood 137.0 mmol/L (136-145)
--- NOTE | 2024-12-07 05:57 | NUR ---
SHIFT SUMMARY PAIN CONTROLLED W/ AVAILABLE PRN. ACUTE RETENTION >900 MLS ON BLADDER SCAN, REQUIRING CATHETHER PLACEMENT. OTHERWISE NO ACUTE EVENTS. VITAL SIGNS REMAINED STABLE.
[2024-12-07 08:27] LABS: Hematocrit 20.5 % (37.0-53.0); Hemoglobin 7.0 g/dL (13.5-17.5)
[2024-12-07 13:36] LABS: Hematocrit 22.7 % (37.0-53.0); Hemoglobin 7.8 g/dL (13.5-17.5)
[2024-12-07 17:26] LABS: Hematocrit 21.5 % (37.0-53.0); Hemoglobin 7.3 g/dL (13.5-17.5)
--- NOTE | 2024-12-07 18:09 | NUR ---
SHIFT SUMMARY PT AWAKE AND A/OX4 FOR BEDSIDE REPORT. PT COMPLAINS OF 8/10 UPPER ABD PAIN, WELL CONTROLLED W/ PO MEDS. SCLERA YELLOW IN COLOR. PT INTERMITTENTLY ON 4LPM NC AND RA, SATURATING >95%. LUNG SOUNDS CLEAR, MODERATE MOIST COUGH. NSR W/ OCCASIONAL AFIB RVR, SELF LIMITING ELEVATED HR. CAP REFILL >3 SEC, NO EDEMA NOTED. ABD TENDER TO PALPATION AND BOWEL TONES ACTIVE. PT TOLERATING PO MEDS/CLEAR LIQUID DIET WELL. LARGE DARK RED/BROWN BM IN THE EVENING. PERIANAL ABSCESS DRAINIGN SMALL AMOUNT OF COLEMAN PURULENT DRAINAGE. MCMAHON CATHETER FOR RETENTION DRAINING TO GRAVITY. BILIARY DRAIN PRESENT IN RUQ, DRESSING CHANGED THIS AM. OLD DRAIN SITE COVERED W/ DRESSING RUQ. SKIN JAUNDICED AND VENOUS STASIS STAINING TO RLE. ACCESS: RFA PIV, LFA PIV
[2024-12-07 21:38] LABS: Hematocrit 23.3 % (37.0-53.0); Hemoglobin 8.0 g/dL (13.5-17.5)
[2024-12-08] VITALS (53 sets, daily range): BP systolic 76–132; BP diastolic 57–81
[2024-12-08 01:44] LABS: Hematocrit 22.9 % (37.0-53.0); Hemoglobin 7.8 g/dL (13.5-17.5)
[2024-12-08 05:21] LABS: BASOPHILS ABSOLUTE AUTO 0.02 K/mm3 (0.00-0.23); BASOPHILS PERCENT AUTO 0 % (0-2); EOSINOPHILS ABSOLUTE AUTO 0.03 K/mm3 (0.00-0.68); EOSINOPHILS PERCENT AUTO 0 % (0-6); Hematocrit 22.2 % (37.0-53.0); Hemoglobin 7.7 g/dL (13.5-17.5); IMMATURE GRAN ABSOLUTE AUTO 0.15 K/mm3 (0.00-0.10); IMMATURE GRAN PERCENT AUTO 1 % (0-1); LYMPHOCYTES ABSOLUTE AUTO 0.48 K/mm3 (0.84-5.20); LYMPHOCYTES PERCENT AUTO 4 % (21-46); MONOCYTES ABSOLUTE AUTO 0.91 K/mm3 (0.16-1.47); MONOCYTES PERCENT AUTO 7 % (4-13); Mean Corpuscular HGB Conc 34.7 g/dL (31.5-36.5); Mean Corpuscular Volume 93 fL (80-100); NEUTROPHILS ABSOLUTE AUTO 11.89 K/mm3 (1.96-9.15); NEUTROPHILS PERCENT AUTO 88 % (41-73); NRBC ABSOLUTE 0.02 K/mm3 (0.00-0.02); NRBC Auto 0.1 /100 WBC (0.0-0.2); Platelet Count 197 K/mm3 (150-400); RDW Coefficient Variation 18.4 % (11.7-14.2); RDW Standard Deviation 56.2 fL (35.1-46.3)
--- NOTE | 2024-12-08 05:31 | NUR ---
SHIFT SUMMARY' PATIENT SLEPT THROUGH NIGHT ONLY CALLING FOR PAIN MANAGEMENT. A&O X4, LUNGS BILATERALY CLEAR IN TOP AND DIMINSHED INTO BOTTOM LOBES. SBP 100-110'S AND HR 70-80'S. PATIENT ON CLER LIQUID DIET AND DRINK SOME WATER ON SHIFT. ON 2L OF O2 VIA NC, SATTING @ 97-99%. HAS RIGHT AND LEFT FA PERIPHERAL IV'S. PATEINT HAS LEFT BKA BUT ABLE TO REPOSITION HIMSELF IN BED. PATIENT USES CALL LIGHT TO MAKE NEEDS KNOWN. CALL LIGHT WITHIN REACH.
[2024-12-08 05:44] LABS: Alanine Aminotransfer (ALT/SGP 117.0 U/L (12-78); Albumin, Blood 1.7 g/dL (3.4-5.0); Albumin/Globulin Ratio 0.5 (0.8-1.8); Anion Gap 4.0 mmol/L (3-11); Aspartate Aminotrans (AST/SGOT 142.0 U/L (12-37); Bilirubin, Total 5.7 mg/dL (0.1-1.0); Blood Urea Nitrogen 9.0 mg/dL (8-24); CO2, Blood 30.0 mmol/L (21-32); Calcium, Blood 7.7 mg/dL (8.5-10.1); Chloride, Blood 106.0 mmol/L (98-108); Creatinine, Blood 0.47 mg/dL (0.60-1.20); Globulin, Blood 3.2 g/dL (2.2-4.0); Glucose, Blood 125.0 mg/dL (70-99); Potassium, Blood 3.4 mmol/L (3.5-5.5); Sodium, Blood 137.0 mmol/L (136-145); Total Protein, Blood 4.9 g/dL (6.4-8.2)
[2024-12-08 09:09] LABS: Vancomycin, Trough 18.9 ug/mL (5.0-10.0)
[2024-12-08] MEDS ORDERED: Potassium Chloride 10 Meq Tablet SA PO ONE (10:10)
[2024-12-08 11:02] LABS: Hematocrit 22.0 % (37.0-53.0); Hemoglobin 7.6 g/dL (13.5-17.5)
--- NOTE | 2024-12-08 15:31 | NUR ---
PROVIDER NOTIFY SBP 80/90'S W/ MAPS>65, PROVIDER PLACED ORDER FOR H&H TO BE DRAWN EARLY. PROVIDER ALSO NOTIFIED OF EDEMA OF RUE. PT DENIES PAIN OR DISCOMFORT TO EXTREMITIY, CAP REFILL REMAINS INTACT.
[2024-12-08 16:11] LABS: Hematocrit 20.6 % (37.0-53.0); Hemoglobin 7.0 g/dL (13.5-17.5)
--- NOTE | 2024-12-08 18:18 | NUR ---
SHIFT SUMMARY PT AWAKE AND A/OX4 FOR BEDSIDE REPORT. PT REPORTS 7/10 ABD PAIN THAT IS WELL CONTROLLED W/ MEDS. PT IS INTERMITTENTLY ON RA AND 2LPM NC, SATURATING >95%. LUNGS SOUNDS CLEAR T/O. NSR AND OCCASIONAL EPISODES OF AFIB RVR THAT IS SELF LIMITING. CAP REFILL<3 SEC AND EDEMA NOTED IN RUE, SEE PREVIOUS NOTE. PT HAS BILIARY DRAIN PRESENT MIDLINE ABD, DRESSING CHANGED TODAY TO MAINTAIN C/D/I. DRAINIAGE SMALL BROWN/RED. ABD FIRM AND TENDER TO PALPATION, BOWEL TONES ACTIVE. PERIANAL ABSCESS DRAINING SMALL AMOUNT OF COLEMAN/PURULENT SPONTANEOUSLY. MCMAHON CATHETER IN PLACE FOR RETENTION AND DRAINING TO GRAVITY. SKIN JAUNDICED AND W/O BREAKDOWN. PT HAD ONE LARGE BLOODY BM DURING SHIFT, BLOOD PRESSURES BECAME SOFT AFTER, MAPS REMAINED >65, PROVIDER NOTIFIED AT TIME. SEE PREVIOUS NOTE. ACCESS: RAC PIV, AND LFA PIV
[2024-12-08 19:03] LABS: Hematocrit 21.4 % (37.0-53.0); Hemoglobin 7.2 g/dL (13.5-17.5)
[2024-12-09] VITALS (30 sets, daily range): BP systolic 80–116; BP diastolic 53–79
[2024-12-09 01:45] LABS: BASOPHILS ABSOLUTE AUTO 0.01 K/mm3 (0.00-0.23); BASOPHILS PERCENT AUTO 0 % (0-2); EOSINOPHILS ABSOLUTE AUTO 0.08 K/mm3 (0.00-0.68); EOSINOPHILS PERCENT AUTO 1 % (0-6); Hematocrit 18.0 % (37.0-53.0); Hemoglobin 6.2 g/dL (13.5-17.5); IMMATURE GRAN ABSOLUTE AUTO 0.15 K/mm3 (0.00-0.10); IMMATURE GRAN PERCENT AUTO 2 % (0-1); LYMPHOCYTES ABSOLUTE AUTO 0.53 K/mm3 (0.84-5.20); LYMPHOCYTES PERCENT AUTO 6 % (21-46); MONOCYTES ABSOLUTE AUTO 0.76 K/mm3 (0.16-1.47); MONOCYTES PERCENT AUTO 9 % (4-13); Mean Corpuscular HGB Conc 34.4 g/dL (31.5-36.5); Mean Corpuscular Volume 93 fL (80-100); NEUTROPHILS ABSOLUTE AUTO 7.18 K/mm3 (1.96-9.15); NEUTROPHILS PERCENT AUTO 83 % (41-73); NRBC ABSOLUTE 0.00 K/mm3 (0.00-0.02); NRBC Auto 0.0 /100 WBC (0.0-0.2); Platelet Count 187 K/mm3 (150-400); RDW Coefficient Variation 18.4 % (11.7-14.2); RDW Standard Deviation 57.1 fL (35.1-46.3)
[2024-12-09 01:49] LABS: Alanine Aminotransfer (ALT/SGP 103.0 U/L (12-78); Albumin, Blood 1.4 g/dL (3.4-5.0); Albumin/Globulin Ratio 0.5 (0.8-1.8); Anion Gap 6.0 mmol/L (3-11); Aspartate Aminotrans (AST/SGOT 114.0 U/L (12-37); Bilirubin, Total 5.1 mg/dL (0.1-1.0); Blood Urea Nitrogen 5.0 mg/dL (8-24); CO2, Blood 29.0 mmol/L (21-32); Calcium, Blood 7.5 mg/dL (8.5-10.1); Chloride, Blood 108.0 mmol/L (98-108); Creatinine, Blood 0.41 mg/dL (0.60-1.20); Globulin, Blood 2.8 g/dL (2.2-4.0); Glucose, Blood 98.0 mg/dL (70-99); Potassium, Blood 3.0 mmol/L (3.5-5.5); Sodium, Blood 140.0 mmol/L (136-145); Total Protein, Blood 4.2 g/dL (6.4-8.2)
--- NOTE | 2024-12-09 04:16 | NUR ---
UPDATE PATIENT RECIEVING PRBC PER DR. ALLISON 1 UNIT. OBSERVED PATIENT FIRST 15 MINUTES PATIENT TOLRATING WELL. CHANGED PATIENT DRESSING MIDLINE ABDOMEN AREA OF BILARY DRAIN. RED BLOOD SATURATED THE BOTTOM OF ABD PAD (1 IN AROUND BOTTOM). REPLACED WITH ABD PAD WITH TAPE OVER IT AND TUBE SECURED. SURTURES OF BILARY DRAIN NOT INTACTIN SKIN JUST WRAPPED AROUND TUBE.
--- NOTE | 2024-12-09 05:22 | NUR ---
SHIFT SUMMARY PATIENT SLEPT MOST OF NIGHT. PATIENT IN PAIN CHRONIC AND ACUTE RECEIVED PAIN MEDS PER EMAR ORDERS. CHANGED MIDLINE DRESSING ON ABDOMEN DUE TO BEING SOILED WITH BLOOD. PATIENT HAD LOW HEMOGLOBIN RECEIVED 1 UNIT OF PRBC, TOLERATED WELL. PATIENT HAS LEFT BKA NEEDS HELP MOVING UP IN BED BUT CAN REPOSITION HIMSELF FROM SIDE TO SIDE. A&O X4, SBP 90-100'S AND HR 80-90'S WITH RUNS OF SINUS TACH MD ALLISON AWARE. PATIENT HAS MCMAHON DRAINING TO GRAVITY. HAS RIGHT AC PERIPHERAL IV AND LEFT FOREARM PERIPHERAL IV. WHEN SLEEPING NEEDS O2 2L OF OXYGEN DUE TO O2 SATS FALLING INTO THE HIGH 80'S. USES CALL LIGHT WHEN NEEDS SOMETHING. CALL LIGHT WITHIN REACH.
[2024-12-09 08:22] LABS: Hematocrit 24.2 % (37.0-53.0); Hemoglobin 8.4 g/dL (13.5-17.5)
--- NOTE | 2024-12-09 11:20 | NUR ---
PT WAS ASSISTED TO THE BSC, TOLERATED FAIRLY WELL, VERY WEAK ON THE SOLO LEG. PT HAD LARGE LOOSE STOOL, THE STOOL CONTAINED SMALL BEADS OF RED/BLACK T/O THE STOOL. PT NOW COMPLAINING OF FEELING WEAK. THE ABDOMEN IS TENDER, MIDLINE TO RIGHT SIDE. DRESSING REMAINS CLEAN AND DRY WITH BILIARY BAG FULL OF RED RETURN. MCMAHON IS DARK CHHAYA. DR. PULLIAM IN AND DISCUSSION ABOUT TRANSFER TO A DIFFERENT LEVEL OF CARE TO ATTEND TO THE GI BLEEDING.
--- NOTE | 2024-12-09 12:08 | NUR ---
"Spiritual Care Visit | Nurse Request Pt. is awake in bed. Pts. marioson is at bedside. Pt. is pleasant. Facilitated an update with the Pt. Pt. verbalizes that he is awaiting inf about a transfer to another hospital with a higher level of care. Pt. displays evidence of strong motivation to fight his ongoing nye with cancer. With grandson present, this visit was primarily introductory in nature. Pt. verbalized gratitude fo rthe spiritual care visit and welcomed this agricultural equipment operator to return."
[2024-12-09 13:45] LABS: Hematocrit 21.2 % (37.0-53.0); Hemoglobin 7.1 g/dL (13.5-17.5)
[2024-12-09] MEDS ORDERED: Potassium Chloride 10 Meq Tablet SA PO ONE (14:00)
--- NOTE | 2024-12-09 14:48 | NUR ---
PT BEING TRANSFERRED TO [facility]. REPORT GIVEN TO EMS. PRIOR TO TRANSFER TO EMS STRETCHER PTS COCCYX WAS ASSESSED c BARBARA, NO PRESSURE INJURY NOTED, COCCYX SKIN BLANCHABLE. MEPILEX PLACED FOR EMS RIDE.
== END 2024-12-09 14:45 | disposition short-term general hospital (02) | DRG 919 ==
LOC: ER 08:57 → ERHOLD 15:52 → ICUE 15:52 → SURS 15:52 → ICUE 12-06 13:01
PROVIDERS: Family Medicine; Internal Medicine; Student in an Organized Health Care Education/Training Program; ADMIT Internal Medicine
PROC: 3E03329 Introduction of Other Anti-infective into Peripheral Vein, Percutaneous Approach (ICD-10-PCS; principal; 2024-12-05)
PROC: B31J1ZZ Fluoroscopy of Left Upper Extremity Arteries using Low Osmolar Contrast (ICD-10-PCS; 2024-12-07)
PROC: B31N1ZZ Fluoroscopy of Other Upper Arteries using Low Osmolar Contrast (ICD-10-PCS; 2024-12-07)
PROC: 30233N1 Transfusion of Nonautologous Red Blood Cells into Peripheral Vein, Percutaneous Approach (ICD-10-PCS; 2024-12-09)
DX: T85.838A Hemorrhage due to other internal prosthetic devices, implants and grafts, initial encounter (principal); K83.1 Obstruction of bile duct; C25.9 Malignant neoplasm of pancreas, unspecified; K61.0 Anal abscess; D62 Acute posthemorrhagic anemia; I48.91 Unspecified atrial fibrillation; I10 Essential (primary) hypertension; E78.5 Hyperlipidemia, unspecified; E11.42 Type 2 diabetes mellitus with diabetic polyneuropathy; N40.0 Benign prostatic hyperplasia without lower urinary tract symptoms; F32.A Depression, unspecified; G47.33 Obstructive sleep apnea (adult) (pediatric); E87.6 Hypokalemia; R54 Age-related physical debility; J44.9 Chronic obstructive pulmonary disease, unspecified; Z79.891 Long term (current) use of opiate analgesic; Z79.01 Long term (current) use of anticoagulants; Z79.85 Long-term (current) use of injectable non-insulin antidiabetic drugs; Z79.84 Long term (current) use of oral hypoglycemic drugs; Z68.23 Body mass index [BMI] 23.0-23.9, adult; Z79.899 Other long term (current) drug therapy; Z88.1 Allergy status to other antibiotic agents; Z88.8 Allergy status to other drugs, medicaments and biological substances; Z91.018 Allergy to other foods; G89.29 Other chronic pain; Z90.49 Acquired absence of other specified parts of digestive tract; Z96.612 Presence of left artificial shoulder joint; Z98.42 Cataract extraction status, left eye; Z98.41 Cataract extraction status, right eye; Z98.890 Other specified postprocedural states; Z87.891 Personal history of nicotine dependence; Z89.512 Acquired absence of left leg below knee; Y73.2 Prosthetic and other implants, materials and accessory gastroenterology and urology devices associated with adverse incidents
CPT/HCPCS: 36200; 36415; 36430; 51703; 74177; 75625; 75726; 76937; 78278; 80048; 80053; 80202; 81003; 82947; 83605; 83690; 83735; 85014; 85018; 85025; 85049; 85384; 85576; 85610; 85730; 86850; 86900; 86901; 86923; 87040; 93005; 93010; 94640; 94664; 94760; 94762; 96361; 96365-59; 96375; 96376; 99152; 99153; 99284-25; A9270; A9560; C1769; C1887; C1894; J1171; J1644; J1815; J2250; J2371; J2405; J2470; J2543; J3010; J3373; J7030; J7040; J7050; J7120; P9016; Q9967

== ENCOUNTER 2024-12-15 06:18 | Emergency (ER) | payer MEDICARE ==
[~2024-12-15] VITALS: Ht 190.5 cm; Wt 85.7 kg
[2024-12-15] MEDS ORDERED: HYDROmorphone HCl/Pf 1MG SYR IV ONE (06:40)
[2024-12-15] MEDS ORDERED: NS 1,000 ML IV SCH (06:40)
[2024-12-15 06:49] LABS: BASOPHILS ABSOLUTE AUTO 0.01 K/mm3 (0.00-0.23); BASOPHILS PERCENT AUTO 0 % (0-2); EOSINOPHILS ABSOLUTE AUTO 0.02 K/mm3 (0.00-0.68); EOSINOPHILS PERCENT AUTO 0 % (0-6); IMMATURE GRAN ABSOLUTE AUTO 0.15 K/mm3 (0.00-0.10); IMMATURE GRAN PERCENT AUTO 1 % (0-1); LYMPHOCYTES ABSOLUTE AUTO 0.82 K/mm3 (0.84-5.20); LYMPHOCYTES PERCENT AUTO 7 % (21-46); MONOCYTES ABSOLUTE AUTO 0.91 K/mm3 (0.16-1.47); MONOCYTES PERCENT AUTO 8 % (4-13); Mean Corpuscular HGB Conc 30.6 g/dL (31.5-36.5); Mean Corpuscular Volume 106 fL (80-100); NEUTROPHILS ABSOLUTE AUTO 9.53 K/mm3 (1.96-9.15); NEUTROPHILS PERCENT AUTO 83 % (41-73); NRBC ABSOLUTE 0.00 K/mm3 (0.00-0.02); NRBC Auto 0.0 /100 WBC (0.0-0.2); Platelet Count 250 K/mm3 (150-400); RDW Coefficient Variation 20.2 % (11.7-14.2); RDW Standard Deviation 77.1 fL (35.1-46.3)
[2024-12-15 06:55] LABS: Hematocrit 13.4 % (37.0-53.0); Hemoglobin 4.1 g/dL (13.5-17.5)
[2024-12-15 07:09] LABS: Prothrombin Time Results 20.2 Sec (9.7-11.5)
[2024-12-15 07:09] LABS: Alanine Aminotransfer (ALT/SGP 31.0 U/L (12-78); Albumin, Blood 1.3 g/dL (3.4-5.0); Albumin/Globulin Ratio 0.4 (0.8-1.8); Anion Gap 11.0 mmol/L (3-11); Aspartate Aminotrans (AST/SGOT 45.0 U/L (12-37); Bilirubin, Direct 4.5 mg/dL (0.0-0.3); Bilirubin, Indirect 1.4 mg/dL (0.1-0.7); Bilirubin, Total 5.9 mg/dL (0.1-1.0); Blood Urea Nitrogen 11.0 mg/dL (8-24); CO2, Blood 17.0 mmol/L (21-32); Calcium, Blood 6.5 mg/dL (8.5-10.1); Chloride, Blood 115.0 mmol/L (98-108); Creatinine, Blood 0.43 mg/dL (0.60-1.20); Globulin, Blood 2.9 g/dL (2.2-4.0); Glucose, Blood 178.0 mg/dL (70-99); Magnesium, Blood 1.6 mg/dL (1.6-2.4); Phosphorus, Blood 2.9 mg/dL (2.5-4.9); Potassium, Blood 3.4 mmol/L (3.5-5.5); Sodium, Blood 140.0 mmol/L (136-145); Total Protein, Blood 4.2 g/dL (6.4-8.2)
[2024-12-15] MEDS ORDERED: HYDROmorphone HCl/Pf 1MG SYR IV PRN (08:05)
[2024-12-15] MEDS ORDERED: FentaNYL Citrate 50 MCG/ML 2 ML Injection IV ONE (13:35)
[2024-12-15 13:45] VITALS: BP 111/77
== END 2024-12-15 14:13 | disposition short-term general hospital (02) ==
LOC: ER 06:18
PROVIDERS: Student in an Organized Health Care Education/Training Program
DX: T85.838A Hemorrhage due to other internal prosthetic devices, implants and grafts, initial encounter (principal); K92.2 Gastrointestinal hemorrhage, unspecified; R57.8 Other shock; R55 Syncope and collapse; R00.0 Tachycardia, unspecified; I48.91 Unspecified atrial fibrillation; J44.9 Chronic obstructive pulmonary disease, unspecified; G47.33 Obstructive sleep apnea (adult) (pediatric); E78.5 Hyperlipidemia, unspecified; K21.9 Gastro-esophageal reflux disease without esophagitis; I10 Essential (primary) hypertension; Y73.8 Miscellaneous gastroenterology and urology devices associated with adverse incidents, not elsewhere classified; Z88.1 Allergy status to other antibiotic agents; Z88.2 Allergy status to sulfonamides; Z79.01 Long term (current) use of anticoagulants; Z79.899 Other long term (current) drug therapy; Z90.49 Acquired absence of other specified parts of digestive tract; Z87.891 Personal history of nicotine dependence; R17 Unspecified jaundice; M54.6 Pain in thoracic spine
CPT/HCPCS: 36415; 36430; 70450; 71260; 74177; 80053; 82248; 83605; 83735; 84100; 85025; 85610; 85730; 86850; 86900; 86901; 86923; 93005; 93010; 96374-59; 96375-59; 96376-59; 99285-25; J1171; J3010; J7030; P9016; Q9967

== ENCOUNTER 2025-01-17 17:04 | Emergency (ER) | payer MEDICARE ==
[~2025-01-17] VITALS: Ht 190.5 cm; Wt 85.7 kg
[2025-01-17 18:01] LABS: BASOPHILS ABSOLUTE AUTO 0.02 K/mm3 (0.00-0.23); BASOPHILS PERCENT AUTO 0 % (0-2); EOSINOPHILS ABSOLUTE AUTO 0.16 K/mm3 (0.00-0.68); EOSINOPHILS PERCENT AUTO 2 % (0-6); Hematocrit 34.2 % (37.0-53.0); Hemoglobin 11.0 g/dL (13.5-17.5); IMMATURE GRAN ABSOLUTE AUTO 0.02 K/mm3 (0.00-0.10); IMMATURE GRAN PERCENT AUTO 0 % (0-1); LYMPHOCYTES ABSOLUTE AUTO 1.41 K/mm3 (0.84-5.20); LYMPHOCYTES PERCENT AUTO 18 % (21-46); MONOCYTES ABSOLUTE AUTO 0.56 K/mm3 (0.16-1.47); MONOCYTES PERCENT AUTO 7 % (4-13); Mean Corpuscular HGB Conc 32.2 g/dL (31.5-36.5); Mean Corpuscular Volume 92 fL (80-100); NEUTROPHILS ABSOLUTE AUTO 5.67 K/mm3 (1.96-9.15); NEUTROPHILS PERCENT AUTO 72 % (41-73); NRBC ABSOLUTE 0.00 K/mm3 (0.00-0.02); NRBC Auto 0.0 /100 WBC (0.0-0.2); Platelet Count 239 K/mm3 (150-400); RDW Coefficient Variation 17.2 % (11.7-14.2); RDW Standard Deviation 59.2 fL (35.1-46.3)
[2025-01-17 18:26] LABS: Alanine Aminotransfer (ALT/SGP 23.0 U/L (12-78); Albumin, Blood 2.5 g/dL (3.4-5.0); Albumin/Globulin Ratio 0.6 (0.8-1.8); Anion Gap 5.0 mmol/L (3-11); Aspartate Aminotrans (AST/SGOT 17.0 U/L (12-37); Bilirubin, Total 0.5 mg/dL (0.1-1.0); Blood Urea Nitrogen 15.0 mg/dL (8-24); CO2, Blood 28.0 mmol/L (21-32); Calcium, Blood 8.6 mg/dL (8.5-10.1); Chloride, Blood 106.0 mmol/L (98-108); Creatinine, Blood 0.53 mg/dL (0.60-1.20); Globulin, Blood 4.4 g/dL (2.2-4.0); Glucose, Blood 108.0 mg/dL (70-99); Potassium, Blood 3.4 mmol/L (3.5-5.5); Sodium, Blood 136.0 mmol/L (136-145); Total Protein, Blood 6.9 g/dL (6.4-8.2)
[2025-01-17] MEDS ORDERED: NS 1,000 ML IV SCH (19:25)
[2025-01-17] MEDS ORDERED: CefTRIAXone Sodium 1,000 MG in NS 100 ML IV ONE (19:25)
[2025-01-17] MEDS ORDERED: Trimethoprim/Sulfamethoxazole DS Tab PO ONE (21:20)
[2025-01-17] MEDS ORDERED: BACTRIM DS TAB1 EAC1 PO (21:45)
[2025-01-17 22:15] VITALS: BP 106/68
== END 2025-01-17 22:15 | disposition home or self-care (01) ==
LOC: ER 17:04
PROVIDERS: Student in an Organized Health Care Education/Training Program
DX: L02.212 Cutaneous abscess of back [any part, except buttock and flank] (principal); D64.9 Anemia, unspecified; I10 Essential (primary) hypertension; E11.9 Type 2 diabetes mellitus without complications; I48.91 Unspecified atrial fibrillation; Z79.2 Long term (current) use of antibiotics; Z79.899 Other long term (current) drug therapy; Z87.891 Personal history of nicotine dependence
CPT/HCPCS: 10060; 71260; 80053; 83605; 84484; 85025; 87070; 87075; 87205; 93005; 93010; 96365; 96366; 99284-25; A9270; J0696; J7030; Q9967

== ENCOUNTER → 2025-03-14 | Outpatient (CLI) | payer MEDICARE ==
[~2025-03-14] MED LIST changes: +BACTRIM DS TAB1 EAC1 PO
[2025-03-14 09:29] LABS: BASOPHILS ABSOLUTE AUTO 0.02 K/mm3 (0.00-0.23); BASOPHILS PERCENT AUTO 0 % (0-2); EOSINOPHILS ABSOLUTE AUTO 0.02 K/mm3 (0.00-0.68); EOSINOPHILS PERCENT AUTO 0 % (0-6); Hematocrit 29.6 % (37.0-53.0); Hemoglobin 9.4 g/dL (13.5-17.5); IMMATURE GRAN ABSOLUTE AUTO 0.10 K/mm3 (0.00-0.10); IMMATURE GRAN PERCENT AUTO 1 % (0-1); LYMPHOCYTES ABSOLUTE AUTO 0.94 K/mm3 (0.84-5.20); LYMPHOCYTES PERCENT AUTO 10 % (21-46); MONOCYTES ABSOLUTE AUTO 0.65 K/mm3 (0.16-1.47); MONOCYTES PERCENT AUTO 7 % (4-13); Mean Corpuscular HGB Conc 31.8 g/dL (31.5-36.5); Mean Corpuscular Volume 96 fL (80-100); NEUTROPHILS ABSOLUTE AUTO 7.70 K/mm3 (1.96-9.15); NEUTROPHILS PERCENT AUTO 82 % (41-73); NRBC ABSOLUTE 0.00 K/mm3 (0.00-0.02); NRBC Auto 0.0 /100 WBC (0.0-0.2); Platelet Count 88 K/mm3 (150-400); RDW Coefficient Variation 17.8 % (11.7-14.2); RDW Standard Deviation 60.3 fL (35.1-46.3)
[2025-03-14 09:44] LABS: Prothrombin Time Results 12.7 Sec (9.7-11.5)
[2025-03-14 09:58] LABS: Magnesium, Blood 2.0 mg/dL (1.6-2.4)
[2025-03-14 09:59] LABS: Alanine Aminotransfer (ALT/SGP 19.0 U/L (12-78); Albumin, Blood 2.6 g/dL (3.4-5.0); Albumin/Globulin Ratio 0.8 (0.8-1.8); Anion Gap 5.0 mmol/L (3-11); Aspartate Aminotrans (AST/SGOT 16.0 U/L (12-37); Bilirubin, Total 0.3 mg/dL (0.1-1.0); Blood Urea Nitrogen 13.0 mg/dL (8-24); CO2, Blood 28.0 mmol/L (21-32); Calcium, Blood 8.5 mg/dL (8.5-10.1); Chloride, Blood 111.0 mmol/L (98-108); Creatinine, Blood 0.54 mg/dL (0.60-1.20); Globulin, Blood 3.4 g/dL (2.2-4.0); Glucose, Blood 110.0 mg/dL (70-99); Potassium, Blood 3.4 mmol/L (3.5-5.5); Sodium, Blood 141.0 mmol/L (136-145); Total Protein, Blood 6.0 g/dL (6.4-8.2)
== END | disposition home or self-care (01) ==
LOC: LAB SHORT 08:46
PROVIDERS: Family Medicine
DX: M79.89 Other specified soft tissue disorders (principal)
CPT/HCPCS: 80053; 83735; 85025; 85610; 85730